=== PATIENT | female | born 1990 | race Caucasian/White ===

== ENCOUNTER 2017-10-14 22:38 | Emergency (ER) | payer OTHER, BC, SELFPAY ==
[2017-10-14 22:51] VITALS: BP 129/87; PULSE 87; RESP 18; TEMP 37.1; O2SAT 99; BMI 32.0
--- NOTE | 2017-10-14 23:10 | HMH.EDWNDL ---
ED Disposition Clinical Impression: Employee exposure to blood Disposition: Home, Self-Care Condition on Discharge: Good Instructions: DI for Accidental Exposure to Body Fluids Additional Instructions: call employee health in am - Critical Care Critical Care Time: No Attestation: On 10/14/17, the high probability of a clinically significant, sudden or life threatening deterioration of the following system(s) required my full and direct attention, intervention and personal management. The time I documented below is in addition to time spent performing reported procedures but includes the following listed in this critical care notation. Medical Decision Making - Medical Records Medical records reviewed: Yes: I reviewed the patient's medical records. Vital Signs: 10/14/17 22:51 Temperature 98.7 F Temperature Source Oral Pulse Rate [Right Radial] 87 Respiratory Rate 18 Blood Pressure [Right Arm] 129/87 Blood Pressure Mean [Right Arm] 101 Blood Pressure Source [Right Arm] Automatic Cuff Blood Pressure Position [Right Arm] Sitting 02 Sat by Pulse Oximetry 99 Oxygen Delivery Method Room Air - Lab Data Lab results reviewed: Yes: I reviewed the patient's lab results. - Smooth Inquiry Pt receiving controlled substance: No Wound/Laceration HPI - General Chief Complaint: Wound/Laceration Stated Complaint: WC [id number] @2200 exposure to blood Time Seen by Provider: 10/14/17 23:10 Mode of Arrival: Ambulatory Source of Information: Patient, Medical Record Limitations: No Limitations Description of Symptoms (Recalled from ER Triage Doc. 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 to blood on clothes - no known source and no needle stick Onset (ago): hour(s) Extremity Location: Bilateral: hand Place: work Patient tetanus UTD: Yes Context: accidental Associated symptoms: none - Related Data Home Medications Medication Instructions Recorded Confirmed No Known Home Medications [No 10/14/17 10/14/17 Known Home Medications] Allergies Allergy/AdvReac Type Severity Reaction Status Date / Time INGREDIENT: NO KNOWN - NO Allergy Unknown Uncoded 08/31/17 14:50 KNOWN DRUG ALLERGY [facility] History I have reviewed the patient's past medical history: Yes - *Social History Alcohol Intake: never - Psychiatric History Expresses thoughts of harming self/others: None Suicide Plan Description: No Plan ROS Obtained: Yes All systems reviewed & no additional complaints - Constitutional Constitutional: Denies fever(s) - Eyes Eyes: Denies change in vision - ENT Ears, Nose, Mouth, and Throat: Denies sore throat - Cardiovascular Cardiovascular: Denies chest pain at rest - Respiratory Respiratory: No chest congestion - Gastrointestinal Gastrointestingal: Denies: abdominal pain - Musculoskeletal Musculoskeletal: Denies joint pain, Denies joint stiffness - Integumentary/Breasts Skin/Breast: Reports as per HPI, Denies rash, Reports other (no sig open area on skin) - Neurologic Neurologic: Denies seizure-like activity Physical Exam - General General appearance: in no apparent distress - Head Head exam: normocephalic - Eye Eye exam: Present: PERRL, EOMI - ENT ENT exam: Present: mucous membranes moist - Neck Neck exam: Present: trachea midline - Chest Chest inspection: Present: normal inspection - Respiratory Respiratory exam: Absent: respiratory distress - Cardiovascular Cardiovascular exam: Present: regular rate - Extremities Exam Extremities exam: Present: normal inspection - Neurological Exam Neurological exam: Present: alert, oriented X3, CN II-XII intact - Psychiatric Psychiatric exam: Present: normal affect - Skin Skin exam: Present: intact
--- NOTE | 2017-10-14 23:13 | ED_ITS ---
ED Disposition Clinical Impression: Employee exposure to blood Disposition: Home, Self-Care Condition on Discharge: Good Instructions: DI for Accidental Exposure to Body Fluids Additional Instructions: call employee health in am - Critical Care Critical Care Time: No Attestation: On 10/14/17, the high probability of a clinically significant, sudden or life threatening deterioration of the following system(s) required my full and direct attention, intervention and personal management. The time I documented below is in addition to time spent performing reported procedures but includes the following listed in this critical care notation. Medical Decision Making - Medical Records Medical records reviewed: Yes: I reviewed the patient's medical records. Vital Signs: 10/14/17 22:51 Temperature 98.7 F Temperature Source Oral Pulse Rate [Right Radial] 87 Respiratory Rate 18 Blood Pressure [Right Arm] 129/87 Blood Pressure Mean [Right Arm] 101 Blood Pressure Source [Right Arm] Automatic Cuff Blood Pressure Position [Right Arm] Sitting 02 Sat by Pulse Oximetry 99 Oxygen Delivery Method Room Air - Lab Data Lab results reviewed: Yes: I reviewed the patient's lab results. - Smooth Inquiry Pt receiving controlled substance: No Wound/Laceration HPI - General Chief Complaint: Wound/Laceration Stated Complaint: WC [id number] @2200 exposure to blood Time Seen by Provider: 10/14/17 23:10 Mode of Arrival: Ambulatory Source of Information: Patient, Medical Record Limitations: No Limitations Description of Symptoms (Recalled from ER Triage Doc. 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 exposed to blood on clothes - no known source and no needle stick Onset (ago): hour(s) Extremity Location: Bilateral: hand Place: work Patient tetanus UTD: Yes Context: accidental Associated symptoms: none - Related Data Home Medications Medication Instructions Recorded Confirmed No Known Home Medications [No 10/14/17 10/14/17 Known Home Medications] Allergies Allergy/AdvReac Type Severity Reaction Status Date / Time INGREDIENT: NO KNOWN - NO Allergy Unknown Uncoded 08/31/17 14:50 KNOWN DRUG ALLERGY [facility] History I have reviewed the patient's past medical history: Yes - *Social History Alcohol Intake: never - Psychiatric History Expresses thoughts of harming self/others: None Suicide Plan Description: No Plan ROS Obtained: Yes All systems reviewed & no additional complaints - Constitutional Constitutional: Denies fever(s) - Eyes Eyes: Denies change in vision - ENT Ears, Nose, Mouth, and Throat: Denies sore throat - Cardiovascular Cardiovascular: Denies chest pain at rest - Respiratory Respiratory: No chest congestion - Gastrointestinal Gastrointestingal: Denies: abdominal pain - Musculoskeletal Musculoskeletal: Denies joint pain, Denies joint stiffness - Integumentary/Breasts Skin/Breast: Reports as per HPI, Denies rash, Reports other (no sig open area on skin) - Neurologic Neurologic: Denies seizure-like activity Physical Exam - General General appearance: in no apparent distress - Head Head exam: normocephalic
[2017-10-14 23:35] LABS: Basophils % 0.4 % (0.1-2.0); Eosinophils # 0.2 K/mm3 (0.0-0.4); Eosinophils % 1.6 % (0.1-12.0); Hematocrit 40.9 % (37.0-47.0); Hemoglobin 13.4 g/dL (12.2-16.2); Lymphocytes % 27.1 K/mm3 (10-50); Mean Corpuscular HGB Conc 32.9 g/dL (31.8-35.4); Mean Corpuscular Hemoglobin 27.7 pg (27.0-31.2); Mean Corpuscular Volume 84.1 fl (81-99); Monocytes # 0.5 K/mm3 (0.1-1.0); Monocytes % 4.2 % (1.7-9.3); Neutrophils # 7.4 K/mm3 (1.8-7.8); Neutrophils % 66.8 % (37.0-80.0); Platelet Count 397 K/mm3 (142-424); Red Blood Count 4.86 M/mm3 (4.20-5.40); Red Cell Distribution Width 13.1 % (11.5-17.5); White Blood Count 11.1 K/mm3 (4.8-10.8)
[2017-10-14 23:39] LABS: Activated Partial Thrombo Time 28.2 seconds (23.6-34.0); INR 0.97 (0.9-1.1); Prothrombin Time 10.5 seconds (9.4-11.8)
[2017-10-14 23:42] LABS: Alanine Aminotransferase 31 U/L (12-78); Albumin Level 4.2 gm/dL (3.4-5.0); Alkaline Phosphatase 147 U/L (46-116); Aspartate Amino Transferase 19 U/L (15-37); Bilirubin,Direct 0.1 mg/dL (0.0-0.2); Bilirubin,Total 0.3 mg/dL (0.2-1.0); Total Protein,Serum 8.2 gm/dL (6.4-8.2)
[2017-10-15 01:00] LABS: HIV AB(1/2) Exposures Non-Reactive (Non-Reactiv)
[2017-10-16 19:23] LABS: HIV Screen 4th Generation wRfx Non Reactive (Non Reactive); Hep B Surface Ab, Qual Reactive (.); Hepatitis B Surface Antigen Negative (Negative); Hepatitis C Antibody <0.1 s/co ratio (0.0-0.9)
== END 2017-10-14 23:30 | disposition home or self-care (01) ==
PROVIDERS: Emergency Provider Emergency Medicine; Family Provider Obstetrics & Gynecology
DX: Z57.8 Occupational exposure to other risk factors (principal); X58.XXXA Exposure to other specified factors, initial encounter; Y92.69 Other specified industrial and construction area as the place of occurrence of the external cause
CPT/HCPCS: 80076; 85025; 85610; 85730; 86703; 86706; 87340; 87380; 99281; G0432

== ENCOUNTER 2017-11-18 16:22 | Emergency (ER) | payer OTHER, BC, SELFPAY ==
[2017-11-18 16:23] VITALS: BP 117/70; PULSE 66; RESP 18; TEMP 36.8; O2SAT 97; BMI 37.3
--- NOTE | 2017-11-18 16:33 | XR_ITS ---
XR chest 2V HISTORY: ITS.REASON: chest pain ORDERING PHYSICIAN: Mabel Dubon MD PATIENT AGE: 27 years COMPARISON: 03/26/2019 FINDINGS: The cardiomediastinal silhouette and pulmonary vascularity are within normal limits. The lungs are clear without infiltrates, suspicious nodules, or pleural effusions. Small area of increased density is present over the anterior aspect of the left sixth rib probably due to summation artifact and may be confirmed with follow-up. No acute bony abnormalities. IMPRESSION: No acute finding
[2017-11-18 16:46] LABS: Hematocrit 41.1 % (37.0-47.0); Hemoglobin 13.4 g/dL (12.2-16.2); Lymphocytes % 27.3 K/mm3 (10-50); Mean Corpuscular HGB Conc 32.7 g/dL (31.8-35.4); Mean Corpuscular Hemoglobin 27.8 pg (27.0-31.2); Mean Platelet Volume 7.1 fl (7.4-10.4); Neutrophils % 65.3 % (37.0-80.0); Platelet Count 322 K/mm3 (142-424); Red Blood Count 4.83 M/mm3 (4.20-5.40); Red Cell Distribution Width 13.2 % (11.5-17.5); White Blood Count 8.5 K/mm3 (4.8-10.8)
[2017-11-18 16:47] LABS: Basophils % 0.5 % (0.1-2.0); Eosinophils # 0.2 K/mm3 (0.0-0.4); Eosinophils % 1.8 % (0.1-12.0); Lymphocytes # 2.3 K/mm3 (0.7-4.5); Monocytes # 0.4 K/mm3 (0.1-1.0); Monocytes % 5.1 % (1.7-9.3); Neutrophils # 5.5 K/mm3 (1.8-7.8)
[2017-11-18 17:10] LABS: Alanine Aminotransferase 29 U/L (12-78); Albumin Level 3.7 gm/dL (3.4-5.0); Alkaline Phosphatase 132 U/L (46-116); Anion Gap 11.6 mEq/L (5-15); Aspartate Amino Transferase 19 U/L (15-37); Bilirubin,Total 0.2 mg/dL (0.2-1.0); Blood Urea Nitrogen 15 mg/dL (7-18); CKMB Relative Index 1.6 U/L (0-4.0); Calcium 8.2 mg/dL (8.5-10.1); Carbon Dioxide 26 mmol/L (21.0-32.0); Chloride 103 mmol/L (98-107); Creatine Kinase 162 U/L (26-192); Creatine Kinase MB 2.6 mg/ml (0.0-3.6); Creatinine Clearance Estimated 119 mL/min (0-300); Creatinine,Serum 0.94 mg/dL (0.55-1.02); Estimated Glomerular Filt Rate 71 ml/min (>60); GFR (African American) 86 ML/MIN (>60); Globulin 3.8 gm/dl (1.3-3.2); Glucose 117 mg/dL (74-106); Potassium 3.6 mmoL/L (3.5-5.1); Sodium 137 mmol/L (136-145); Total Protein,Serum 7.5 gm/dL (6.4-8.2); Troponin I < 0.02 ng/ml (0.00-0.06)
[2017-11-18 17:26] LABS: Urine Pregnancy, HCG Qual. Negative (Negative)
--- NOTE | 2017-11-18 17:29 | HMH.EDCP ---
ED Disposition Clinical Impression: Chest pain, musculoskeletal Disposition: Home, Self-Care Condition on Discharge: Good Instructions: DI for Atypical Chest Pain Additional Instructions: Naproxen as directed, see your PCP in one to four days for recheck - Critical Care Critical Care Time: No Attestation: On 11/18/17, the high probability of a clinically significant, sudden or life threatening deterioration of the following system(s) required my full and direct attention, intervention and personal management. The time I documented below is in addition to time spent performing reported procedures but includes the following listed in this critical care notation. Medical Decision Making Vital Signs: 11/18/17 16:23 Temperature 98.2 F Temperature Source Oral Pulse Rate [Right Radial] 66 Respiratory Rate 18 Blood Pressure [Right Arm] 117/70 Blood Pressure Mean [Right Arm] 85 02 Sat by Pulse Oximetry 97 Oxygen Delivery Method Room Air - Lab Data Lab results reviewed: Yes: I reviewed the patient's lab results. Lab Results 11/18/17 16:30: WBC 8.5, RBC 4.83, Hgb 13.4, Hct 41.1, MCV 85.0, MCH 27.8, MCHC 32.7, RDW 13.2, Plt Count 322, MPV 7.1 L, Neut % (Auto) 65.3, Lymph % (Auto) 27.3, [place] % (Auto) 5.1, Eos % (Auto) 1.8, Baso % (Auto) 0.5, Neut # (Auto) 5.5, Lymph # (Auto) 2.3, [place] # (Auto) 0.4, Eos # (Auto) 0.2, Baso # (Auto) 0.0 11/18/17 16:30: Sodium 137, Potassium 3.6, Chloride 103, Carbon Dioxide 26, Anion Gap 11.6, BUN 15, Creatinine 0.94, Estimated Creat Clear 119, Estimated GFR 71, Est GFR ( Amer) 86, Glucose 117 H, Calcium 8.2 L, Total Bilirubin 0.2, AST 19, ALT 29, Alkaline Phosphatase 132 H, Total Creatine Kinase 162, CK-MB (CK-2) 2.6, CK-MB (CK-2) Rel Index 1.6, Troponin I < 0.02, Total Protein 7.5, Albumin 3.7, Globulin 3.8 H, Albumin/Globulin Ratio 1.0 L 11/18/17 16:35: Urine HCG, Qual Negative Result diagrams: 11/18/17 16:30 11/18/17 16:30 Orders (Tests/Meds): ORDERS Category Date Time Status XR chest 2V Stat Exams 11/18/17 16:33 Taken EKG Request [ECG Request by /Maria Antonia] Stat Y 11/18/17 16:33 Ordered - Radiology Data #1 Image(s): Chest Image Reviewed: Yes I reviewed the patient's radiology image Preliminary Findings: Normal/NAD, No Infiltrates Seen, Normal Lung Inflation Pito (neg acute), Normal Heart Size - ECG Data Tracing #1 I reviewed this ECG and interpreted as documented below: ECG initial impression date: 11/18/17 ECG initial impression time: 16:30 ECG normal with no acute: arrhythmias, ischemia, conduction abnormalities, chamber hypertrophy Normal Sinus Rhythm: Yes - Smooth Inquiry Pt receiving controlled substance: No Chest Pain HPI - General Chief Complaint: Chest Pain Stated Complaint: chest pain Time Seen by Provider: 11/18/17 16:30 Mode of Arrival: Family Vehicle Source of Information: Patient Limitations: No Limitations Description of Symptoms (Recalled from ER Triage Doc. by RN): pt c/o midsternal chest pain that is worse with movement. pain started around 1430. 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 No acute trauma. No SOB. No F or Ch. No cough; no PE RF's. Onset (ago): hour(s) Duration: now resolved Pain location: substernal Severity: mild Quality: aching Relieving factors: remaining still Exacerbating factors: movement Treatments prior to or on arrival for Cardiac Chest Pain: none - Related Data Home Medications Medication Instructions Recorded Confirmed Cholecalciferol (Vitamin D3) 50,000 unit PO WEEKLY 11/18/17 11/18/17 [Vitamin D3 50,000 unit Cap] Allergies Allergy/AdvReac Type Severity Reaction Status Date / Time No Known Allergies Allergy Verified 11/18/17 16:29 [facility] History I have reviewed the patient's past medical history: Yes Medical History: Denies:: Cancer, Diabetes Mellitus Type 1, Diabetes Mellitus Type 2, MRSA [place]
[2017-11-18 18:10] VITALS: BP 129/63; PULSE 72; RESP 20; TEMP 36.9; O2SAT 98
== END 2017-11-18 18:10 | disposition home or self-care (01) ==
PROVIDERS: Emergency Provider Emergency Medicine; Family Provider Obstetrics & Gynecology
DX: R07.89 Other chest pain (principal)
CPT/HCPCS: 71046; 80053; 81025; 82550; 82553; 84484; 85025; 93005; 93041; 99283

== ENCOUNTER → 2017-11-27 10:38 | Outpatient (CLI) | payer OTHER, SELFPAY ==
[2017-11-28 11:08] LABS: Hep A Ab, IgM Negative (Negative); Hepatitis B Core Antibody IgM Negative (Negative); Hepatitis B Surface Antigen Negative (Negative)
[2017-11-28 18:51] LABS: HIV Screen 4th Generation wRfx Non Reactive (Non Reactive); Hepatitis C Antibody <0.1 s/co ratio (0.0-0.9)
== END ==
PROVIDERS: Visit Provider Emergency Medicine
DX: Z57.8 Occupational exposure to other risk factors (principal)
CPT/HCPCS: 36415; 80074; 86703; G0432

== ENCOUNTER → 2018-07-11 14:30 | Outpatient (CLI) | payer BC, SELFPAY ==
--- NOTE | 2018-07-11 14:36 | MR_ITS ---
MR knee RT wo con Ordering Physician: Africa Gill Patient Age: 27 years: Female HISTORY: ITS.REASON: INSTABILITY OF RIGHT KNEE JOINT Right knee pain. 2 months fell landed on right knee pain is medial and posterior. TECHNIQUE: Multiplanar multisequence imaging 1.5 to MR COMPARISON :None FINDINGS . The medial and lateral compartment are intact. Cartilage well-maintained medial and lateral compartment. No osteochondral defects of appreciated. The medial and lateral meniscus appear intact. No meniscal tear with well-maintained, generous volume meniscus . Normal signal throughout. The medial and lateral collateral ligaments appear intact. Cruciate ligaments intact. ACL and PCL well visualized and appear normal. Quadriceps and patellar tendon appear intact. Patellofemoral joint. Slight lateral tilt of patella... Slight hypoplastic medial margin of femoral groove. Only suggestion of a tiny chondral signal irregularities at posterior patella superiorly at its midportion, as well as at its medial margin superior.. Joint effusion most evident at suprapatellar bursa. The medial retinaculum appears intact. No bone contusion. No bone bruise. No obvious loose body. Only question some mild edema or possible infiltration of the posterior aspect of Hoffa's fat pad on sagittal image 12, 13. Equivocal observation Minimal soft tissue edema, possible scant swelling in the subcutaneous tissues overlying the medial retinaculum. I believe the medial retinaculum remains intact otherwise Attention directed towards the medial posterior knee. No discrete additional findings appreciable here.. No significant evident Patel's cyst. It Only question slightly increased, generous redundant mainly fatty tissue just above the superior base of the medial meniscal root which I believe is most likely normal.. IMPRESSION: 1.. Moderate Joint effusion. No discrete internal drainage evident. 2. Mild superficial soft tissue edema, most notable overlying the intact medial retinaculum . No focal abnormalities at the medial nor medial posterior knee. 3. Cruciates intact. Collateral ligaments intact No meniscal tear evident.. No osteochondral abnormalities at the medial nor lateral compartment 4. Mild lateral tilt of patella. Is there lateral tracking patella clinically? Suggestion very minimal chondral signal irregularities posterior patella superiorly, conceivably reflects minor chondromalacia change
== END ==
PROVIDERS: PCP Nurse Practitioner Family; Visit Provider Nurse Practitioner Family
DX: M25.361 Other instability, right knee (principal); M25.561 Pain in right knee
CPT/HCPCS: 73721

== ENCOUNTER 2019-09-08 08:26 | Emergency (ER) | payer BC, SELFPAY ==
[2019-09-08 08:40] VITALS: BP 134/85; PULSE 120; RESP 22; TEMP 36.8; O2SAT 97; BMI 33.7
--- NOTE | 2019-09-08 08:48 | CT_ITS ---
PROCEDURE: CT ABDOMEN PELVIS W CON CLINICAL HISTORY: ABD PAIN COMPARISON: No exams were available for comparison TECHNIQUE: Axial images obtained with sagittal and coronal reformats. All CT scans at the facility use one or more dose reduction, viz: automated exposure control, ma/kV adjustment per patient size (including targeted exams where dose is matched to indication, i.e. head), or iterative reconstruction technique. FINDINGS: Lower lung hunt are clear. Liver, gallbladder, pancreas, spleen, and adrenal glands are normal. Kidneys are normal. Aorta appears normal however there is a small atretic appearing celiac artery. Most of the celiac artery blood supply territory is likely supplied by the SMA which is more prominent. There is some nonspecific thickening of the wall of the mid and distal ileum. There is no pneumatosis or colonic dilatation or colonic wall thickening. Appendix is normal. There are clips in the pelvis from tubal ligation procedure. Uterus is normal. There are no adnexal lesions. There is a small amount of cul-de-sac fluid. No acute osseous process IMPRESSION: Mildly abnormal loops of mid and distal ileum likely from mild enteritis. 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 Dictated by: Allan Ramachandran 09/08/2019 09:55 Electronically signed by Allan Ramachandran in [place] 09/08/2019 09:55
[2019-09-08 08:53] LABS: Microscopic, Urine URINE MICROSCOPIC (MICROSCOPIC)
[2019-09-08 08:55] LABS: Appearance,Urine CLEAR (Clear); Bilirubin,Urine Negative (Negative); Blood, Urine 1+ (Negative); Color,Urine YELLOW (Yellow); Glucose,Urine (UA) Negative (Negative); Ketones,Urine Negative (Negative); Leukocyte Esterase,Urine Negative (Negative); Nitrate,Urine Negative (Negative); Protein,Urine Negative (Negative); Specific Gravity, Urine 1.025 (1.005-1.030); Urobilinogen,Urine 0.2 EU/dl (0.2)
[2019-09-08 09:07] LABS: Urine Pregnancy, HCG Qual. Negative (Negative)
[2019-09-08 09:08] LABS: Basophils % 0.1 % (0.1-2.0); Eosinophils # 0.1 K/mm3 (0.0-0.4); Lymphocytes # 1.2 K/mm3 (0.7-4.5); Lymphocytes % 9.2 % (10-50); Mean Corpuscular HGB Conc 34.2 g/dL (31.8-35.4); Mean Corpuscular Hemoglobin 29.2 pg (27.0-31.2); Mean Corpuscular Volume 85.5 fl (81-99); Mean Platelet Volume 7.6 fl (7.4-10.4); Monocytes # 0.8 K/mm3 (0.1-1.0); Monocytes % 6.1 % (1.7-9.3); Neutrophils # 10.6 K/mm3 (1.8-7.8); Neutrophils % 83.5 % (37.0-80.0); Platelet Count 359 K/mm3 (142-424); Red Blood Count 4.79 M/mm3 (4.20-5.40); Red Cell Distribution Width 12.9 % (11.5-17.5); White Blood Count 12.7 K/mm3 (4.8-10.8)
[2019-09-08 09:11] LABS: Bacteria,Urine Trace /lpf; WBC,Urine Occasional #/hpf (0-3)
--- NOTE | 2019-09-08 09:13 | HMH.EDABDPAI ---
ED Disposition Clinical Impression: Enteritis Disposition: Home, Self-Care Condition on Discharge: Good Instructions: DI for Acute Abdomen Additional Instructions: Follow-up with your primary care provider on Wednesday. Return to the emergency department immediately if symptoms are worse. Prescriptions: Ciprofloxacin HCl [Cipro 500mg Tab] 500 mg PO BID 7 Days #14 tab Transmission Status: Pending to [address] metroNIDAZOLE [Flagyl 500mg Tablet] 500 mg PO TID 7 Days #21 tab Transmission Status: Pending to [address] Ondansetron [Zofran 4mg ODT] 4 mg PO Q4H PRN #10 tab.rapdis PRN Reason: Nausea Transmission Status: Pending to [address] Referrals: Africa Gill [Primary Care Provider] - Time of Disposition: 10:51 - Critical Care Critical Care Time: No Attestation: On 09/08/19, the high probability of a clinically significant, sudden or life threatening deterioration of the following system(s) required my full and direct attention, intervention and personal management. The time I documented below is in addition to time spent performing reported procedures but includes the following listed in this critical care notation. Medical Decision Making - Medical Records Medical records reviewed: Yes: I reviewed the patient's medical records. - Smooth Inquiry Pt receiving controlled substance: No Vital Signs: 09/08/19 08:40 Temperature 98.2 F Temperature Source Oral Pulse Rate [Right Radial] 120 H Respiratory Rate 22 Blood Pressure [Right Arm] 134/85 Blood Pressure Mean [Right Arm] 101 Blood Pressure Source [Right Arm] Automatic Cuff Blood Pressure Position [Right Arm] Sitting 02 Sat by Pulse Oximetry 97 Oxygen Delivery Method Room Air - Lab Data Lab results reviewed: Yes: I reviewed the patient's lab results. Lab Results 09/08/19 08:37: Urine Color Yellow, Urine Appearance Clear, Urine pH 6.0, Ur Specific [place] 1.025, Urine Protein Negative, Urine Glucose (UA) Negative, Urine Ketones Negative, Urine Blood 1+, Urine Nitrate Negative, Urine Bilirubin Negative, Urine Urobilinogen 0.2, Ur Leukocyte Esterase Negative, Urine RBC 3-5, Urine WBC Occasional, Ur Squamous Epith Cells 5-10, Urine Bacteria Trace 09/08/19 08:37: Urine HCG, Qual Negative 09/08/19 09:00: WBC 12.7 H, RBC 4.79, Hgb 14.0, Hct 41.0, MCV 85.5, MCH 29.2, MCHC 34.2, RDW 12.9, Plt Count 359, MPV 7.6, Neut % (Auto) 83.5 H, Lymph % (Auto) 9.2 L, [place] % (Auto) 6.1, Eos % (Auto) 1.0, Baso % (Auto) 0.1, Neut # (Auto) 10.6 H, Lymph # (Auto) 1.2, [place] # (Auto) 0.8, Eos # (Auto) 0.1, Baso # (Auto) 0.0 09/08/19 09:00: Sodium 141, Potassium 3.6, Chloride 104, Carbon Dioxide 26, Anion Gap 14.6, BUN 15, Creatinine 0.95, Estimated Creat Clear 104, Estimated GFR 70, Est GFR ( Amer) 84, Glucose 102, Calcium 8.1 L, Total Bilirubin 0.5, AST 11 L, ALT 17, Alkaline Phosphatase 94, Total Protein 7.3, Albumin 3.7, Globulin 3.6 H, Albumin/Globulin Ratio 1.0 L, Amylase 47, Lipase 67 L Result diagrams: 09/08/19 09:00 09/08/19 09:00 Orders (Tests/Meds): ED MEDICATIONS Discontinued Medications Generic Name Dose Route Start Last Admin Trade Name Freq PRN Reason Stop Dose Admin Sodium Chloride 1,000 mls @ 999 mls/hr 09/08/19 09:00 09/08/19 09:09 Sod Chlor 0.9% 1000ml Bag IV 09/08/19 10:00 999 mls/hr .Q1H1M GEOVANNI Administration Ioversol 75 ml 09/08/19 09:39 09/08/19 09:40 Rad-Optiray 350 100ml Vial IV 09/08/19 09:40 75 ml ONCE ONE Administration Protocol Ketorolac Tromethamine 30 mg 09/08/19 08:59 09/08/19 09:09 Toradol 30mg/Ml Vial IV 09/08/19 09:00 30 mg ONCE ONE Administration Ondansetron HCl 4 mg 09/08/19 08:59 09/08/19 09:09 Zofran 4mg/2ml Vial IV 09/08/19 09:00 4 mg ONCE ONE Administration Sodium Chloride 10 ml 09/08/19 09:39 09/08/19 09:40 Rad-Saline Flush 10ml Syringe IV 09/08/19 09:40 10 ml ONCE ONE Administration - CT Data CT Sc
[2019-09-08 09:24] LABS: Alanine Aminotransferase 17 U/L (12-78); Albumin Level 3.7 gm/dL (3.4-5.0); Alkaline Phosphatase 94 U/L (46-116); Amylase 47 U/L (25-115); Anion Gap 14.6 mEq/L (5-15); Aspartate Amino Transferase 11 U/L (15-37); Bilirubin,Total 0.5 mg/dL (0.2-1.0); Blood Urea Nitrogen 15 mg/dL (7-18); Calcium 8.1 mg/dL (8.5-10.1); Carbon Dioxide 26 mmol/L (21.0-32.0); Chloride 104 mmol/L (98-107); Creatinine Clearance Estimated 104 mL/min (50-200); Creatinine,Serum 0.95 mg/dL (0.55-1.02); Estimated Glomerular Filt Rate 70 ml/min (>60); GFR (African American) 84 ML/MIN (>60); Globulin 3.6 gm/dl (1.3-3.2); Glucose 102 mg/dL (74-106); Lipase 67 u/L (73-393); Potassium 3.6 mmoL/L (3.5-5.1); Sodium 141 mmol/L (136-145); Total Protein,Serum 7.3 gm/dL (6.4-8.2)
[2019-09-08 10:52] VITALS: BP 132/87; PULSE 99; RESP 18; TEMP 37.1; O2SAT 98
== END 2019-09-08 11:01 | disposition home or self-care (01) ==
PROVIDERS: Emergency Provider Emergency Medicine; PCP Nurse Practitioner Family
DX: K52.9 Noninfective gastroenteritis and colitis, unspecified (principal)
CPT/HCPCS: 74177; 80053; 81001; 81025; 82150; 83690; 85025; 96365; 96375; 99283; J2405; Q9967

== ENCOUNTER → 2019-09-28 08:43 | Outpatient (CLI) | payer BC, SELFPAY ==
--- NOTE | 2019-09-28 08:46 | FL_ITS ---
PROCEDURE: FL UPPER GI SMALL BOWEL CLINICAL INDICATION: ABD PAIN COMPARISON: No exams were available for comparison TECHNIQUE: FLUOROSCOPY TIME : 3 minutes and 1 second FINDINGS: The esophagus, stomach, and duodenum have an unremarkable appearance.There is no evidence of hiatal hernia. No ulcer or mass evident. No mucosal abnormalities apparent. There is normal peristalsis. The duodenal C-loop is nondisplaced. Small bowel has an unremarkable appearance. No evidence obstruction, mucosal abnormality, mass or stricture. Spot views of the small bowel and terminal ileum are unremarkable. There are bilateral tubal ligation clips present IMPRESSION: Unremarkable upper GI and small-bowel follow-through Dictated by: Jose L Dias MD 09/28/2019 17:06 Electronically signed by Jose L Dias MD in [place] 09/28/2019 17:06
[2019-09-28 09:39] LABS: HCG Qualitative, Serum Negative (Negative)
== END ==
PROVIDERS: PCP Nurse Practitioner Family; Visit Provider Nurse Practitioner
DX: R10.9 Unspecified abdominal pain (principal)
CPT/HCPCS: 36415; 74246; 74248; 84703

== ENCOUNTER 2020-03-14 19:06 | Emergency (ER) | payer BC, SELFPAY ==
[2020-03-14 19:16] VITALS: BP 126/78; PULSE 89; RESP 15; TEMP 36.8; O2SAT 97; BMI 35.9
[2020-03-14 19:20] VITALS: BP 126/78; PULSE 89; RESP 15; TEMP 36.8; O2SAT 97; BMI 35.9
--- NOTE | 2020-03-14 19:30 | HMH.EDUTC ---
[facility] Disposition Clinical Impression: Skin problem Disposition: Home, Self-Care Condition on Discharge: Good Instructions: Trimethoprim/Sulfamethoxazole (Alternative Therapy), DI for Skin Abscess Additional Instructions: *Start antibiotic(s) immediately and be sure to take as ordered for the FULL length of time although you may be feeling better or start to see improvement in the next 24-48 hours *Monitor closely. Outlined redness so that you can monitor easier. Follow up immediately for new or worsening symptoms including but not limited to redness, swelling, streaking from site fever or chills. *Warm compress 15 minutes 3-4 times day *Never squeeze or pop these on your own. Seek immediate medical attention next time this occurs *Monitor Temp. Tylenol every 4 hours as needed and ibuprofen every 6 hours as needed (as long as your primary care doctor has told you that it is ok to take both. For fever, aches, pain. ER if no less that 101 despite Tylenol and ibuprofen Follow up with your family doctor/primary care physician in the next 48-72 hours if no improvement Follow up with Dermatology as advised for further evaluation and examination Return if needed Follow up with family doctor for wound culture results Straight to ER if any life threatening symptoms Prescriptions: Sulfamethoxazole/Trimethoprim [Bactrim DS tablet] 1 each PO BID 5 Days #10 tab Transmission Status: Pending to [facility] #[id number] Referrals: Africa Gill [Primary Care Provider] - As needed Timothy Jiménez MD [Referring] - As needed Time of Disposition: 19:43 Medical Decision Making - Smooth Inquiry Pt receiving controlled substance: No Smooth was queried for this patient: No Vital Signs: 03/14/20 19:16 03/14/20 19:20 Temperature 98.3 F 98.3 F Temperature Source Oral Oral Pulse Rate [Left Brachial] 89 89 Respiratory Rate 15 15 Blood Pressure [Left Arm] 126/78 126/78 Blood Pressure Mean [Left Arm] 94 94 Blood Pressure Source [Left Arm] Automatic Cuff Automatic Cuff Blood Pressure Position [Left Arm] Sitting Sitting 02 Sat by Pulse Oximetry 97 97 Oxygen Delivery Method Room Air Room Air Orders (Tests/Meds): ORDERS Category Date Time Status Wound Culture and Gram Stain Stat Micro 03/14/20 19:25 Ordered [facility] HPI - General Stated complaint: oozing knot on head Time Seen by Provider: 03/14/20 19:31 Mode of Arrival: Ambulatory Source of Information: Patient Limitations: No Limitations Description of Symptoms (Recalled from Triage Doc. by RN): Patient reports a knot on the top of her head that has been there over a year. The last two days it started bleeding so she went and seen Dr. oDnaldson in [facility] and they told her it may be a cyst. On the way home it started draining more so she came to have it evaluated again. HEENT Symptoms (Recalled from RN notes): Yes Resp Symptoms (Recalled from RN notes): No Skin Symptoms (Recalled from RN notes): Yes MS Symptoms (Recalled from RN notes): No Functional Status (Recalled from RN notes): WNL - History of Present Illness Provider Complaint: Patient states that she had a knot like area that has been on her head for awhile but for the last couple of days has been red, sore and oozing yellowish colored pus States that she seen doctor earlier today and they looked at it and said they was going to refer her to ENT but she went home and squeezed it and large amount of yellowish bloody pus come from it and now looks like there is more in there and its hurting worse States that someone told her it may be infected so she came in to have it checked - Related Data Home Medications Medication Instructions Recorded Confirmed Cholecalciferol (Vitamin D3) 50,000 unit PO WEEKLY 11/18/17 11/18/17 [Vitamin D3 50,000 unit Cap] Previous Rx's Medication Instructions Recorded ondansetron HCL [Zofran 4mg Tab*] 4 mg PO Q8 PRN #6 tab 07/23/19 Ciprofloxacin HCl [Cipro 500mg 500 mg PO BID 7 Days #14 tab
[2020-03-14 19:50] VITALS: BP 126/78; PULSE 89; RESP 15; TEMP 36.8; O2SAT 97
== END 2020-03-14 19:55 | disposition home or self-care (01) ==
PROVIDERS: Emergency Provider Nurse Practitioner; PCP Nurse Practitioner Family
DX: L02.811 Cutaneous abscess of head [any part, except face] (principal)
CPT/HCPCS: 87070; 87077; 87186; 87205; 99201

== ENCOUNTER 2020-06-23 21:25 | Emergency (ER) | payer BC, SELFPAY ==
--- NOTE | 2020-06-23 21:21 | ECG_ITS ---
APPROVED REPORT Exam: Resting ECG HR:118 bpm ECG Measurements Heart Rate 118 AXES DE 120 P 75 QRSd 78 QRS 46 QT 320 T -5 QTc 448 Conclusion Sinus tachycardia Nonspecific ST-T wave abnormalities Abnormal ECG Electronically signed by : Merrick Bui, 06/24/2020 09:23:48
[2020-06-23 21:26] VITALS: BP 121/79; PULSE 94; RESP 20; TEMP 36.9; O2SAT 95; BMI 36.3
[2020-06-23 21:27] VITALS: BMI 36.3
--- NOTE | 2020-06-23 21:45 | XR_ITS ---
PROCEDURE: XR CHEST 2V CLINICAL HISTORY: chest pain COMPARISON: CR CXR2V XR chest 2V from 11/18/2017 FINDINGS: The cardiomediastinal silhouette and pulmonary vascularity are within normal limits. The lungs are clear without infiltrates, suspicious nodules, or pleural effusions. No acute bony abnormalities. IMPRESSION: No acute findings. Dictated by: Jose L Dias MD 06/24/2020 05:30 Jose L Dias MD in [place] 06/24/2020 05:30
--- NOTE | 2020-06-23 21:50 | PC.NURSE ---
Pt reports no relief after nitro SL.
[2020-06-23 21:53] LABS: Basophils # 0.1 K/mm3 (0-0.2); Basophils % 0.6 % (0.1-2.0); Eosinophils # 0.1 K/mm3 (0.0-0.4); Eosinophils % 0.9 % (0.1-12.0); Hematocrit 44.4 % (37.0-47.0); Hemoglobin 14.6 g/dL (12.2-16.2); Lymphocytes # 2.8 K/mm3 (0.7-4.5); Lymphocytes % 26.7 % (10-50); Mean Corpuscular HGB Conc 32.9 g/dL (31.8-35.4); Mean Corpuscular Hemoglobin 28.8 pg (27.0-31.2); Mean Corpuscular Volume 87.5 fl (81-99); Mean Platelet Volume 6.9 fl (7.4-10.4); Monocytes # 0.5 K/mm3 (0.1-1.0); Monocytes % 4.7 % (1.7-9.3); Neutrophils # 7.1 K/mm3 (1.8-7.8); Neutrophils % 67.1 % (37.0-80.0); Platelet Count 328 K/mm3 (142-424); Red Blood Count 5.08 M/mm3 (4.20-5.40); Red Cell Distribution Width 12.4 % (11.5-17.5); White Blood Count 10.6 K/mm3 (4.8-10.8)
[2020-06-23 21:59] LABS: Anion Gap 13.7 mEq/L (5-15); Blood Urea Nitrogen 15 mg/dl (7-17); Calcium 9.5 mg/dl (8.4-10.2); Carbon Dioxide 29 mmol/L (22.0-30.0); Chloride 101 mmol/L (98-107); Creatinine Clearance Estimated 97 mL/min (50-200); Estimated Glomerular Filt Rate 59 ml/min (>60); GFR (African American) 71 ML/MIN (>60); Glucose 109 mg/dl (74-100); Potassium 3.7 mmoL/L (3.5-5.1); Sodium 140 mmol/L (136-145)
[2020-06-23 22:04] LABS: Microscopic, Urine URINE MICROSCOPIC (MICROSCOPIC)
[2020-06-23 22:14] LABS: Troponin I < 0.01 ng/ml (0.00-0.034)
--- NOTE | 2020-06-23 22:16 | PC.NURSE ---
received notification of esr inability to ocmplete by galindo garcia
[2020-06-23 22:17] LABS: T4 (Thyroxine) 9.1 ug/dl (5.53-11.0)
[2020-06-23 22:22] LABS: Amylase 72 U/L (30-110); Lipase 48 U/L (23-300)
[2020-06-23 22:28] LABS: C-Reactive Protein 3.2 mg/L (0-4)
--- NOTE | 2020-06-23 22:34 | HMH.EDCP ---
ED Disposition Clinical Impression: Atypical chest pain Disposition: Home, Self-Care Condition on Discharge: Good Instructions: DI for Atypical Chest Pain Additional Instructions: fluids and see pcp for follow up Referrals: Africa Gill [Primary Care Provider] - - Critical Care Critical Care Time: No Attestation: On 06/23/20, the high probability of a clinically significant, sudden or life threatening deterioration of the following system(s) required my full and direct attention, intervention and personal management. The time I documented below is in addition to time spent performing reported procedures but includes the following listed in this critical care notation. Medical Decision Making - Medical Records Medical records reviewed: Yes: I reviewed the patient's medical records. - Smooth Inquiry Pt receiving controlled substance: No Vital Signs: 06/23/20 21:26 Temperature 98.5 F Temperature Source Oral Pulse Rate [Apical] 94 H Respiratory Rate 20 Blood Pressure [Right Arm] 121/79 Blood Pressure Mean [Right Arm] 93 Blood Pressure Source [Right Arm] Automatic Cuff Blood Pressure Position [Right Arm] Supine 02 Sat by Pulse Oximetry 95 Oxygen Delivery Method Room Air - Lab Data Lab results reviewed: Yes: I reviewed the patient's lab results. Lab Results 06/23/20 21:29: WBC 10.6, RBC 5.08, Hgb 14.6, Hct 44.4, MCV 87.5, MCH 28.8, MCHC 32.9, RDW 12.4, Plt Count 328, MPV 6.9 L, Neut % (Auto) 67.1, Lymph % (Auto) 26.7, [place] % (Auto) 4.7, Eos % (Auto) 0.9, Baso % (Auto) 0.6, Neut # (Auto) 7.1, Lymph # (Auto) 2.8, [place] # (Auto) 0.5, Eos # (Auto) 0.1, Baso # (Auto) 0.1 06/23/20 21:29: Sodium 140, Potassium 3.7, Chloride 101, Carbon Dioxide 29, Anion Gap 13.7, BUN 15, Creatinine 1.10 H, Estimated Creat Clear 97, Estimated GFR 59, Est GFR ( Amer) 71, Glucose 109 H, Calcium 9.5, Troponin I < 0.01, TSH 0.80, Thyroxine (T4) 9.1 06/23/20 21:29: C-Reactive Protein 3.2, Amylase 72, Lipase 48 06/23/20 21:29: Urine Color Yellow, Urine Appearance Clear, Urine pH 6.0, Ur Specific [place] 1.020, Urine Protein Negative, Urine Glucose (UA) Negative, Urine Ketones Negative, Urine Blood Trace-i, Urine Nitrate Negative, Urine Bilirubin Negative, Urine Urobilinogen 0.2, Ur Leukocyte Esterase Negative, Urine RBC Occasional, Ur Squamous Epith Cells 20-50 06/23/20 21:29: Urine HCG, Qual Negative 06/23/20 21:29: D-Dimer 0.41 Result diagrams: 06/23/20 21:29 06/23/20 21:29 Orders (Tests/Meds): ED MEDICATIONS Generic Name Dose Route Start Last Admin Trade Name Freq PRN Reason Stop Dose Admin Sodium Chloride 1,000 mls @ 999 mls/hr 06/23/20 22:00 06/23/20 21:52 Sod Chlor 0.9% 1000ml Bag IV 06/23/20 23:00 999 mls/hr .Q1H1M GEOVANNI Administration Nitroglycerin 0.4 mg 06/23/20 21:47 06/23/20 21:35 Nitroglycerin 0.4mg Sl Tablet SL 07/23/20 21:46 1 tab Q5MINP PRN Administration Chest Pain Discontinued Medications Generic Name Dose Route Start Last Admin Trade Name Freq PRN Reason Stop Dose Admin Aspirin 324 mg 06/23/20 21:47 06/23/20 21:35 Aspirin 81mg Chewable Tablet PO 06/23/20 21:48 324 mg ONCE ONE Administration Ketorolac Tromethamine 30 mg 06/23/20 21:52 06/23/20 21:53 Ketorolac 30mg/Ml Vial IV 06/23/20 21:53 30 mg ONCE ONE Administration ORDERS Category Date Time Status XR chest 2V Stat Exams 06/23/20 21:45 Taken Troponin I Q3H Lab 06/24/20 01:00 Ordered Troponin I Q3H Lab 06/24/20 04:00 Ordered - Radiology Data #1 Image(s): Chest Image Reviewed: Yes I reviewed the patient's radiology image Preliminary Findings: Normal/NAD - ECG Data Tracing #1 Arrhythmias present: sinus tach Ischemic changes: non-specific ST-T wave changes Chest Pain HPI - General Chief Complaint: Chest Pain Stated Complaint: chest pain Time Seen by Provider: 06/23/20 21:40 Mode of Arrival: Ambulatory Source of Information: Patient Limitations: No Limitations
[2020-06-23 22:49] LABS: Appearance,Urine CLEAR (Clear); Bilirubin,Urine Negative (Negative); Blood, Urine TRACE-I (Negative); Color,Urine YELLOW (Yellow); Glucose,Urine (UA) Negative (Negative); Ketones,Urine Negative (Negative); Leukocyte Esterase,Urine Negative (Negative); Nitrate,Urine Negative (Negative); Protein,Urine Negative (Negative); Urobilinogen,Urine 0.2 EU/dl (0.2)
[2020-06-23 22:52] LABS: Urine Pregnancy, HCG Qual. Negative (Negative)
[2020-06-23 22:59] LABS: RBC,Urine Occasional #/hpf (0-3); Squamous Epithelial Cell,Urine 20-50 #/hpf (0-5)
[2020-06-23 23:04] LABS: D-Dimer 0.41 ug/mL (0.15-8.0)
[2020-06-23 23:31] VITALS: BP 107/73; PULSE 85; RESP 14; TEMP 36.9; O2SAT 95
== END 2020-06-23 23:35 | disposition home or self-care (01) ==
PROVIDERS: Emergency Provider Emergency Medicine; PCP Nurse Practitioner Family
DX: R07.89 Other chest pain (principal); Z87.891 Personal history of nicotine dependence
CPT/HCPCS: 71046; 80048; 81001; 81025; 82150; 83690; 84436; 84443; 84484; 85025; 85378; 86140; 93005; 96365; 96375; 99283

== ENCOUNTER → 2021-02-20 15:16 | Outpatient (POV) | payer BC, SELFPAY ==
[2021-02-20 16:04] VITALS: BP 119/75; PULSE 83; RESP 18; O2SAT 98; BMI 34.0
--- NOTE | 2021-02-20 20:11 | HMH.PMCON ---
Assessment and Plan (1) Osteoarthritis of knees, bilateral Status: Chronic Category: Medical Code(s): M17.0 - Bilateral primary osteoarthritis of knee (2) Bilateral knee pain Status: Chronic Category: Medical Code(s): M25.561 - Pain in right knee; M25.562 - Pain in left knee - Assessment and plan all Dx Assessment and Plan for all problems:: Patient has tried and failed conservative therapies of physical therapy which did worsen her pain. She did try anti-inflammatories and did have severe GI upset and is no longer taking anti-inflammatories. She has tried ice and heat therapies and does continue with home stretching. She did undergo intra-articular knee injections bilaterally with no significant relief. She was referred to us for genicular nerve blocks to her knees. She would like to begin with a right knee geniculate block. If the patient has success with treatment to her right knee she would then like to proceed to the left knee. Her pain is affecting her quality of life and daily activity. Her pain is worsening. We will see her back after her genicular block to reevaluate her symptoms. Risks and benefits of the procedure have been explained to the patient. Patient would like to proceed with the procedure. Patient has been instructed to contact the clinic with any concerns before the next appointment. Dr. Bernal has reviewed this note and agrees with this plan of care. This note was dictated using voice recognition software and make contain errors or omissions. HPI - Data of Consult Patient: new to practice Consult date: 02/20/21 Requesting Physician: Abby Little APRN Primary Care Provider: Referral Provider, MD - Consult Narrative Reason for consult: Bilateral knee pain History of present illness: Ms. Soto is a 30 year old female who presents today for consultation for bilateral knee pain. She was referred to us by Dr. Kitty Gee. The patient says that she has had bilateral knee pain with edema. She reports stiffness as well as burning sensation to both knees. This has been ongoing for greater than a year. Patient was referred to orthopedics Dr. Humphrey. Unfortunately the patient did not get any relief with intra-articular injections from his office. As result Dr. Humphrey did refer the patient to rheumatology. He did feel that much of her pain was due to degenerative arthritis in the bilateral knees. Patient does have an MRI of her right knee that was done on December 16, 2020 which showed a report of 1-2 chondral malacia or osteochondral irregularity with moderate suprapatellar effusion. Patient does say that Dr. Humphrey aspirated and injected her knee on 10/21/2020. She says this did not give her any relief. She did have a fall in early November which has irritated her bilateral knees even further. She says that she did hit concrete with both knees. She is now having sensations of popping and cracking of both knees with walking. She says the pain is much worse with activity and when going up or down heel. It does interrupt her sleep. The patient has tried physical therapy for greater than 6 weeks which worsened her pain. She has taken meloxicam and NSAIDs without any significant relief. Unfortunately the anti-inflammatories cause the patient to have severe GI upset and she has stopped taking the medication. She does continue with a home stretching program. Patient says that she is interested in possible genicular nerve blocks to her knees. Her right knee is worse at this time. She would like to proceed with initial treatment to her right knee. She rates her pain a 6 out of 10 today. Patient says that the pain is affecting her mobility and daily activity. CC: Abby Little APRN [facility] History I have reviewed the patient's past medical history: Yes Medical History: Denies:: Cancer, Diabetes Mellitus Type 1, Diabetes Mellitus Type 2, Internal Pacemaker, MRSA *Have you ever received a pneumonia
== END ==
PROVIDERS: Visit Provider Clinical Nurse Specialist Family Health
DX: M17.0 Bilateral primary osteoarthritis of knee (principal)
CPT/HCPCS: 99202; G0463

== ENCOUNTER 2021-02-28 11:56 | Day surgery (SDC) | payer BC, SELFPAY ==
[2021-02-28 12:35] VITALS: BP 116/78; PULSE 71; RESP 18; TEMP 36.4; O2SAT 97; BMI 35.9
[2021-02-28 14:30] VITALS: BP 125/74; PULSE 65; RESP 20; O2SAT 98
[2021-02-28 14:46] VITALS: BP 124/67; PULSE 67; RESP 20; O2SAT 98
[2021-02-28 15:26] VITALS: BP 127/65; PULSE 73; RESP 18; TEMP 36.4; O2SAT 97
--- NOTE | 2021-02-28 16:48 | P.PCN_ITS ---
- Procedure Date: 02/28/21 Time: 16:48 Anesthesiologist:: Jeni Sanchez MD Complications:: None Pre-procedure Diagnosis:: left Knee pain, left knee osteoarthritis Post-procedure Diagnosis:: same Indications for Procedure:: This patient is a very pleasant 30-year-old female who presents today with left- sided knee pain related to the above diagnosis. She has previously undergone intra-articular knee injections with minimal pain relief. She has trialed and failed conservative treatment including oral pain medications and physical therapy for greater than 6 weeks. Today the plan is for her to undergo left- sided genicular nerve blocks. Procedure Details:: Left knee genicular block Informed consent was obtained and the risk and benefits of the procedure was explained to the patient. The patient was taken to the procedure room. The left knee was prepped using ChloraPrep. I placed 22-gauge needles into the area of the left superior medial genicular nerve, left superior lateral genicular nerve and left inferior medial genicular nerve. Needle placement was confirmed in AP and lateral views with dye. We then injected bupivacaine 0.25% 3 mL's and Depo-Medrol 25 mg into each area of the left superior medial genicular nerve, left superior lateral genicular nerve and left inferior medial genicular nerve. Patient tolerated the procedure well with no complications. Plan and Disposition:: Follow-up with this patient in 2 weeks. Will reevaluate pain symptoms at that time.
== END 2021-02-28 14:50 | disposition home or self-care (01) ==
PROVIDERS: PCP Nurse Practitioner Family; Visit Provider Anesthesiology Pain Medicine
DX: M17.12 Unilateral primary osteoarthritis, left knee (principal); E78.5 Hyperlipidemia, unspecified; Z87.891 Personal history of nicotine dependence
CPT/HCPCS: 64454; J1030; Q9966

== ENCOUNTER → 2021-03-20 14:07 | Outpatient (POV) | payer BC, SELFPAY ==
[2021-03-20 14:24] VITALS: BP 119/80; PULSE 92; RESP 18; O2SAT 96; BMI 32.1
--- NOTE | 2021-03-20 15:03 | HMH.PAINSOAP ---
[facility] Pain Management SOAP Note Subjective:: Patient is a 30-year-old white female who presents today for follow-up after a left genicular knee block. Patient is being treated in the clinic for left knee osteoarthritis and chronic left knee pain. She has seen orthopedic provider who informed the patient that it was likely due to arthritis in her knee. She was referred to rheumatology. Rheumatology did provide the patient with injective therapy which did not give her any relief. She says the injection was a cortisone injection. The genicular block did not give her any relief as well. She has tried and failed conservative therapy of physical therapy for more than 6 weeks and does continue with home stretching. She did not get any relief from any of the treatments that have been provided to her at this point. She says her first day, the pain was baseline. Following her second day after the injection, her pain got worse. She feels that the genicular block is actually made the pain worse than before the block. She says now as she is walking she feels a jabbing sensation in the knee . She and her primary care provider are working the patient up for weight loss medication to see if this does help with her joint pain. She would like a refill second opinion from orthopedic surgeon. She would like to stay local. We did discuss [facility] orthopedics. She would like to discuss her options with them. We will also order her compounding cream to apply topically to the area to see if this gives her. The patient's pain is a 5 out of 10 today. Review of Systems General: No recent weight changes, no fever, no sleep disturbances Respiratory: No cough, no shortness of air, no recurring pulmonary infections Cardiovascular/peripheral vascular: No chest pain, no palpitations, no edema, no shortness of breath Gastrointestinal: No new onset incontinence, normal bowel movements reported Genitourinary: No new onset incontinence Musculoskeletal: [] Left knee pain Psychiatric: Normal mood/affect Neurological: [Denies weakness in extremities], [denies balance issues] Objective:: Physical exam General: Alert and oriented x3, no acute distress, pleasant and cooperative, [on room air] Lungs: Respirations even and unlabored, symmetrical chest expansion Eyes: PERRL Musculoskeletal: Flexion and extension of [] left lower extremity guarded secondary to pain, deep tendon reflexes normal, strength in upper and lower extremities [4/5], [abnormal gait noted] Neurological: Speech clear, 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 We will also order patient compounding cream to apply topically to the area. Unfortunately, we have provided the patient with injective therapy along with genicular blocks and she did not get relief. We will see her back to see if the compounding cream has given her any relief. We will follow up with her in 1 month. Patient has been instructed to contact the clinic with any concerns before the next appointment. Dr. Bernal has reviewed this note and agrees with this plan of care. This note was dictated using voice recognition software and make contain errors or omissions. [facility] History I have reviewed the patient's past medical history: Yes Medical History: Denies:: Cancer, Diabetes Mellitus Type 1, Diabetes Mellitus Type 2, Internal Pacemaker, MRSA, Seizures *Have you ever received a pneumonia vaccine?: No *Have you received a flu vaccine this season?: No Other Medical History: Denies: Blood Transfusion Reaction Laterality Cases: Bilateral: Carpal Tunnel Release Other Surgeries: Yes: Colonoscopy, , Dilation and Curettage, Tubal Ligation. No: Pacemaker Amputation: No Fractures: No - *Social History Smoking Status: Former smoker Tobacco Type: cigar
== END ==
PROVIDERS: PCP Nurse Practitioner Family; Visit Provider Clinical Nurse Specialist Family Health
DX: M17.12 Unilateral primary osteoarthritis, left knee (principal)
CPT/HCPCS: 99212; G0463

== ENCOUNTER → 2021-04-07 15:52 | Outpatient (CLI) | payer BC, SELFPAY ==
[2021-04-07 16:28] LABS: Basophils % 0.3 % (0.1-2.0); Eosinophils # 0.1 K/mm3 (0.0-0.4); Eosinophils % 0.9 % (0.1-12.0); Hematocrit 40.6 % (37.0-47.0); Hemoglobin 13.1 g/dL (12.2-16.2); Lymphocytes # 2.5 K/mm3 (0.7-4.5); Lymphocytes % 30.2 % (10-50); Mean Corpuscular HGB Conc 32.4 g/dL (31.8-35.4); Mean Corpuscular Hemoglobin 27.3 pg (27.0-31.2); Mean Corpuscular Volume 84.4 fl (81-99); Mean Platelet Volume 6.7 fl (7.4-10.4); Monocytes # 0.4 K/mm3 (0.1-1.0); Monocytes % 5.3 % (1.7-9.3); Neutrophils # 5.2 K/mm3 (1.8-7.8); Neutrophils % 63.3 % (37.0-80.0); Platelet Count 322 K/mm3 (142-424); Red Blood Count 4.81 M/mm3 (4.20-5.40); Red Cell Distribution Width 12.5 % (11.5-17.5); White Blood Count 8.2 K/mm3 (4.8-10.8)
[2021-04-07 18:01] LABS: Chloride 102 mmol/L (98-107); Potassium 4.4 mmoL/L (3.5-5.1); Sodium 138 mmol/L (136-145)
[2021-04-07 18:04] LABS: Alanine Aminotransferase 16 U/L (12-78); Albumin Level 4.8 g/dl (3.5-5.0); Albumin/Globulin Ratio 1.7 (1.1-1.8); Alkaline Phosphatase 83 U/L (38-126); Anion Gap 12.4 mEq/L (5-15); Aspartate Amino Transferase 26 U/L (14-36); Bilirubin,Total 0.6 mg/dl (0.2-1.3); Blood Urea Nitrogen 17 mg/dl (7-17); Carbon Dioxide 28 mmol/L (22.0-30.0); Estimated Glomerular Filt Rate 84 ml/min (>60); GFR (African American) 102 ML/MIN (>60); Globulin 2.9 g/dL (1.3-3.2); Total Protein,Serum 7.7 g/dl (6.3-8.2)
[2021-04-07 18:05] LABS: Calcium 9.3 mg/dl (8.4-10.2); Glucose 84 mg/dl (74-100)
[2021-04-07 18:10] LABS: C-Reactive Protein 2.6 mg/L (0-4)
[2021-04-07 18:22] LABS: T4 (Thyroxine) 9.7 ug/dl (5.53-11.0)
[2021-04-07 18:36] LABS: Thyroid Stimulating Hormone 0.89 uIU/mL (0.465-4.68)
[2021-04-07 20:59] LABS: Erythrocyte Sedimentation Rate 18 mm/hr (0-20)
[2021-04-09 08:32] LABS: FSH 3.1 mIU/mL (.); HIV Screen 4th Generation wRfx Non Reactive (Non Reactive); LH 9.1 mIU/mL (.); Progesterone 9.8 ng/mL (.); RA Latex Turbid. <10.0 IU/mL (0.0-13.9); Testosterone,Total 15 ng/dL (13-71); Thyroid Peroxidase Antibodies 9 IU/mL (0-34)
[2021-04-09 12:11] LABS: Hep A Ab, IgM Negative (Negative); Hepatitis B Core Antibody IgM Negative (Negative); Hepatitis B Surface Antigen Negative (Negative); Hepatitis C Antibody <0.1 s/co ratio (0.0-0.9)
[2021-04-09 14:12] LABS: Anti-Centromere B Antibodies <0.2 AI (0.0-0.9); Anti-DNA (DS) Ab Qn <1 IU/mL (0-9); Anti-Jo-1 <0.2 AI (0.0-0.9); Anti-Smith Antibody <0.2 AI (0.0-0.9); Antichromatin Antibodies <0.2 AI (0.0-0.9); Antiscleroderma-70 Antibodies <0.2 AI (0.0-0.9); RNP Antibodies <0.2 AI (0.0-0.9); Sjogren's Anti-SS-A <0.2 AI (0.0-0.9); Sjogren's Anti-SS-B <0.2 AI (0.0-0.9)
[2021-04-10 00:04] LABS: Anti-Cyclic Citrullinated Pept 7 units (0-19)
[2021-04-10 04:03] LABS: Lupus Reflex Interpretation Comment: (.); PTT-LA 39.8 sec (0.0-51.9); dRVVT 40.2 sec (0.0-47.0)
[2021-04-10 07:34] LABS: Thyroid Stimulating Immunoglob <0.10 IU/L (0.00-0.55)
[2021-04-10 15:34] LABS: Estrogen 161 pg/mL (.)
== END ==
PROVIDERS: Visit Provider Physician Assistant
DX: M25.50 Pain in unspecified joint (principal); R53.83 Other fatigue; R63.5 Abnormal weight gain; R26.89 Other abnormalities of gait and mobility; Z11.4 Encounter for screening for human immunodeficiency virus [HIV]
CPT/HCPCS: 36415; 80053; 80074; 82672; 83001; 83002; 84144; 84403; 84436; 84443; 84445; 85025; 85613; 85651; 86140; 86200; 86225; 86235; 86376; 86431; 86618; 86703; G0432

== ENCOUNTER → 2021-04-22 16:09 | Outpatient (CLI) | payer BC, SELFPAY ==
--- NOTE | 2021-04-22 16:09 | MR_ITS ---
PROCEDURE: MR HEAD/BRAIN WO CON CLINICAL INDICATION: weakness, instability, memory loss, headaches, COMPARISON: No exams were available for comparison TECHNIQUE: Routine multiplanar multi echo sequences are performed without gadolinium enhancement. FINDINGS: No midline shift, mass effect, intracranial hemorrhage or hydrocephalus. No evidence of acute infarction. The cerebellopontine angles, cerebellum brainstem have an unremarkable appearance. There are a few small T2 white matter hyperintensities in the frontal lobes on both sides. These are nonspecific. The pituitary, optic chiasm, corpus callosum, and craniocervical junction have an unremarkable appearance. No mastoid effusion apparent. Mucosal thickening is present within the sphenoid sinus lobular in nature on the left side suggesting retention cyst. There is a small left maxillary retention cyst along the floor of the left maxillary sinus. No sinus air-fluid level. The orbits have an unremarkable appearance. IMPRESSION: 1. There are few scattered bilateral T2 white matter hyperintensities of the frontal lobes. These are nonspecific. Migraine headache, demyelinating process, or ischemic gliotic foci is included in the differential diagnosis. Please correlate with clinical parameters. Consider six-month follow-up to confirm stability. 2. Paranasal sinus disease 3. Otherwise negative MRI of the brain without contrast. Dictated by: Jose L Dias MD 04/23/2021 06:58 Jose L Dias MD in [place] 04/23/2021 06:58
== END ==
PROVIDERS: PCP Physician Assistant; Visit Provider Physician Assistant
DX: R26.89 Other abnormalities of gait and mobility (principal)
CPT/HCPCS: 70551

== ENCOUNTER 2021-05-28 17:20 | Emergency (ER) | payer BC, SELFPAY ==
--- NOTE | 2021-05-28 18:30 | PC.NURSE ---
pt notified of high volume of pt in ER, will get pt in a room as soon as one is available
[2021-05-28 20:48] VITALS: BMI 34.7
[2021-05-28 20:56] LABS: Influenza A, PCR Not Detected (NotDetected); Influenza B, PCR Not Detected (NotDetected)
[2021-05-28 20:58] VITALS: BP 137/65; PULSE 118; RESP 18; TEMP 38.1; O2SAT 99; BMI 34.7
[2021-05-28 20:59] LABS: Basophils % 0.7 % (0.1-2.0); Eosinophils # 0.1 K/mm3 (0.0-0.4); Eosinophils % 1.9 % (0.1-12.0); Hematocrit 37.6 % (37.0-47.0); Hemoglobin 12.6 g/dL (12.2-16.2); Lymphocytes # 0.9 K/mm3 (0.7-4.5); Lymphocytes % 13.5 % (10-50); Mean Corpuscular HGB Conc 33.6 g/dL (31.8-35.4); Mean Corpuscular Hemoglobin 29.3 pg (27.0-31.2); Mean Corpuscular Volume 87.2 fl (81-99); Monocytes # 0.5 K/mm3 (0.1-1.0); Monocytes % 6.7 % (1.7-9.3); Neutrophils # 5.1 K/mm3 (1.8-7.8); Neutrophils % 77.2 % (37.0-80.0); Platelet Count 322 K/mm3 (142-424); Red Blood Count 4.31 M/mm3 (4.20-5.40); Red Cell Distribution Width 12.6 % (11.5-17.5); White Blood Count 6.6 K/mm3 (4.8-10.8)
--- NOTE | 2021-05-28 21:11 | HMH.EDGENADL ---
ED Disposition Clinical Impression: COVID-19 virus infection, Pain of right lower extremity Pneumonia Qualifiers: Pneumonia type: due to unspecified organism Laterality: left Lung location: lower lobe of lung Qualified Code(s): J18.9 - Pneumonia, unspecified organism Disposition: Home, Self-Care Condition on Discharge: Good Instructions: DI for COVID-19 (Suspected or Confirmed ), DI for Pneumonia -- Adult Additional Instructions: Return tomorrow morning for Doppler ultrasound of your right leg. The alarm technician will call you with a time to come in. Schedule outpatient monoclonal antibody therapy, you will receive a call from the hospital to schedule. Tylenol for fever. Additional instructions for PNEUMONIA: Take antibiotics as prescribed. See your physician as soon as possible for further evaluation. Return immediately if you have an uncontrollable fever greater than 102 degrees, difficulty breathing or shortness of breath, persistent vomiting, or severe chest pain. COVID-19 Isolation: Isolate yourself for a MINIMUM of 10 days: What to do: Monitor your symptoms. If you have an emergency warning sign (including trouble breathing), seek emergency medical care immediately. Stay in a separate room from other household members, if possible. Use a separate bathroom, if possible. Avoid contact with other members of the household and pets. Don?t share personal household items, like cups, towels, and utensils. Wear a mask when around other people if able. You can be around others AFTER: 10 days since symptoms first appeared AND 24 hours with no fever without the use of fever-reducing medications AND Other symptoms of COVID-19 are improving Prescriptions: Cefdinir [Omnicef 300mg Capsule] 300 mg PO BID #20 cap Transmission Status: Pending to [facility] # Azithromycin [Zithromax 250mg tab] 250 mg PO DAILY #4 tab Transmission Status: Pending to [facility] # Referrals: Marilyn Perkins PA [Primary Care Provider] - - Critical Care Critical Care Time: No Attestation: On 05/28/21, the high probability of a clinically significant, sudden or life threatening deterioration of the following system(s) required my full and direct attention, intervention and personal management. The time I documented below is in addition to time spent performing reported procedures but includes the following listed in this critical care notation. Medical Decision Making - Smooth Inquiry Pt receiving controlled substance: No Vital Signs: 05/28/21 20:58 Temperature 100.6 F H Temperature Source Oral Pulse Rate [Right Radial] 118 H Respiratory Rate 18 Blood Pressure [Right Arm] 137/65 Blood Pressure Mean [Right Arm] 89 Blood Pressure Source [Right Arm] Automatic Cuff Blood Pressure Position [Right Arm] Sitting 02 Sat by Pulse Oximetry 99 Oxygen Delivery Method Room Air - Lab Data Lab Results 05/28/21 20:43: WBC 6.6, RBC 4.31, Hgb 12.6, Hct 37.6, MCV 87.2, MCH 29.3, MCHC 33.6, RDW 12.6, Plt Count 322, MPV 7.0 L, Neut % (Auto) 77.2, Lymph % (Auto) 13.5, [place] % (Auto) 6.7, Eos % (Auto) 1.9, Baso % (Auto) 0.7, Neut # (Auto) 5.1, Lymph # (Auto) 0.9, [place] # (Auto) 0.5, Eos # (Auto) 0.1, Baso # (Auto) 0.0 05/28/21 20:43: Sodium 138, Potassium 4.3, Chloride 100, Carbon Dioxide 28, Anion Gap 14.3, BUN 17, Creatinine 0.80, Estimated Creat Clear 135, Estimated GFR 84, Est GFR ( Amer) 102, Glucose 108 H, Calcium 9.2, Total Bilirubin 0.4, AST 32, ALT 26, Alkaline Phosphatase 85, Total Protein 8.2, Albumin 4.6, Globulin 3.6 H, Albumin/Globulin Ratio 1.3 05/28/21 20:43: Serum HCG, Qual Negative 05/28/21 20:43: SARS-CoV-2 (PCR) Detected A, Influenza A Untype (PCR) Not detected, Influenza Type B (PCR) Not detected 05/28/21 20:43: ESR 29 H 05/28/21 20:43: C-Reactive Protein 31.4 H 05/28/21 20:43: D-Dimer 1.04 H 05/28/21 22:00: Urine Color Yellow, Urine Appearance Clear, Urine
[2021-05-28 21:12] LABS: Alanine Aminotransferase 26 U/L (12-78); Albumin Level 4.6 g/dl (3.5-5.0); Albumin/Globulin Ratio 1.3 (1.1-1.8); Alkaline Phosphatase 85 U/L (38-126); Anion Gap 14.3 mEq/L (5-15); Aspartate Amino Transferase 32 U/L (14-36); Bilirubin,Total 0.4 mg/dl (0.2-1.3); Blood Urea Nitrogen 17 mg/dl (7-17); Calcium 9.2 mg/dl (8.4-10.2); Carbon Dioxide 28 mmol/L (22.0-30.0); Chloride 100 mmol/L (98-107); Creatinine Clearance Estimated 135 mL/min (50-200); Estimated Glomerular Filt Rate 84 ml/min (>60); GFR (African American) 102 ML/MIN (>60); Globulin 3.6 g/dL (1.3-3.2); Glucose 108 mg/dl (74-100); Potassium 4.3 mmoL/L (3.5-5.1); Sodium 138 mmol/L (136-145); Total Protein,Serum 8.2 g/dl (6.3-8.2)
--- NOTE | 2021-05-28 21:12 | XR_ITS ---
PROCEDURE INFORMATION: Exam: XR Chest Exam date and time: 05/28/2021 9:12 PM Age: 30 years old Clinical indication: Pain; Patient HX: SOA, chest pressure, fever TECHNIQUE: Imaging protocol: XR of the chest. Views: 2 views. COMPARISON: CR XR CHEST 2V 06/23/2020 9:44 PM FINDINGS: Lungs: Mild diffuse interstitial prominence with subtle perihilar opacities, possibly atypical pneumonia. Differential would include mild pulmonary edema. No focal airspace consolidation. Pleural spaces: No pleural effusion. No pneumothorax. Heart/Mediastinum: Normal heart size. Bones/joints: Unremarkable. IMPRESSION: Possible atypical pneumonia, versus mild pulmonary edema.
[2021-05-28 21:37] LABS: Coronavirus 19, PCR Detected (NotDetected)
[2021-05-28 21:43] LABS: HCG Qualitative, Serum Negative (Negative)
--- NOTE | 2021-05-28 21:50 | CT_ITS ---
PROCEDURE INFORMATION: Exam: CTA Chest With Contrast Exam date and time: 05/28/2021 9:50 PM Age: 30 years old Clinical indication: Pain; Shortness of breath; Chest pressure; Patient HX: Covid; Additional info: SOA, cp, recent knee surgery, R/O pe TECHNIQUE: Imaging protocol: Computed tomographic angiography of the chest with contrast. 3D rendering (Not supervised by radiologist): MIP and/or 3D reconstructed images were created by the technologist. Radiation optimization: All CT scans at this facility use at least one of these dose optimization techniques: automated exposure control; mA and/or kV adjustment per patient size (includes targeted exams where dose is matched to clinical indication); or iterative reconstruction. Contrast material: ISO 370; Contrast volume: 70 ml; Contrast route: INTRAVENOUS (IV); COMPARISON: CR XR CHEST 2V 05/28/2021 9:12 PM FINDINGS: Pulmonary arteries: No pulmonary embolus. Mild artifactual heterogeneity of the subsegmental pulmonary arteries. Aorta: Unremarkable. No aortic aneurysm. No aortic dissection. Other arteries: Anatomic variation, with common origin of the celiac artery and superior mesenteric artery. There is a separate origin of the left gastric artery directly from the aorta. Lungs: There is an ill-defined ground-glass opacity measuring approximately 4.5 x 1.9 cm in the left lower lobe, compatible with pneumonia. Pleural spaces: Unremarkable. No pneumothorax. No pleural effusion. Heart: Unremarkable. No cardiomegaly. No pericardial effusion. Lymph nodes: There are scattered bilateral axillary lymph nodes measuring up to 1.1 cm in short axis, most likely reactive. There are calcified prevascular lymph nodes in the mediastinum, compatible with old granulomatous disease. Bones/joints: Unremarkable. No acute fracture. Soft tissues: Unremarkable. IMPRESSION: 1. No evidence of pulmonary embolus. 2. Ill-defined ground-glass opacity in the left lower lobe compatible with pneumonia.
[2021-05-28 22:06] LABS: D-Dimer 1.04 ug/mL (0.0-0.5)
[2021-05-28 22:08] LABS: Microscopic, Urine URINE MICROSCOPIC (MICROSCOPIC)
[2021-05-28 22:09] LABS: Appearance,Urine CLEAR (Clear); Bilirubin,Urine Negative (Negative); Blood, Urine TRACE-I (Negative); Color,Urine YELLOW (Yellow); Glucose,Urine (UA) Negative (Negative); Ketones,Urine Negative (Negative); Leukocyte Esterase,Urine Negative (Negative); Nitrate,Urine Negative (Negative); Protein,Urine Negative (Negative); Urobilinogen,Urine 0.2 EU/dl (0.2)
[2021-05-28 22:19] LABS: C-Reactive Protein 31.4 mg/L (0-4)
[2021-05-28 22:21] LABS: Bacteria,Urine 1+ /lpf
[2021-05-28 22:34] LABS: Erythrocyte Sedimentation Rate 29 mm/hr (0-20)
--- NOTE | 2021-05-28 22:34 | PC.NURSE ---
pt gone to ct
[2021-05-29 00:28] VITALS: BP 137/48; PULSE 74; RESP 18; TEMP 37; O2SAT 98
== END 2021-05-29 00:47 | disposition home or self-care (01) ==
PROVIDERS: Emergency Provider Emergency Medicine; PCP Physician Assistant
DX: U07.1 COVID-19 (principal); J12.82 Pneumonia due to coronavirus disease 2019; M79.661 Pain in right lower leg; Z87.891 Personal history of nicotine dependence
CPT/HCPCS: 71046; 71275; 80053; 81001; 83605; 84703; 85025; 85378; 85651; 86140; 87040; 96365; 96366; 96372; 99283; C9803; J0456; Q9967; U0003; U0005

== ENCOUNTER → 2021-05-29 15:26 | Outpatient (CLI) | payer BC, SELFPAY ==
--- NOTE | 2021-05-29 | CA_ITS ---
APPROVED REPORT Right Lower Extremity Venous Study for DVT. [place]: CT Indications Lower Extremity Pain: Right Lower Extremity Edema: Right Risk Factors Post OP Pt had knee surgery 05/23/21. Pt + for covid 19 Vein Imaging CFV (R): compressive, spontaneous, phasic, augmentation SFJ (R): compressive, spontaneous, phasic, augmentation FEM (R): compressive, spontaneous, phasic, augmentation POP (R): compressive, spontaneous, phasic, augmentation DFV (R): compressive, spontaneous, phasic, augmentation PTV (R): compressive, spontaneous, phasic, augmentation GSV (R): compressive, spontaneous, phasic, augmentation SSV (R): compressive, spontaneous, phasic, augmentation Peroneals (R):compressive, spontaneous, phasic, augmentation GAS (R): compressive, spontaneous, phasic, augmentation Findings RLE negative for DVT/SVT Vessels compressible No reflux noted Conclusion RLE negative for DVT/SVT Vessels compressible No reflux noted Electronically signed by : Jose L Dias MD 06/02/2021 16:21:34
== END ==
PROVIDERS: PCP Physician Assistant; Visit Provider Emergency Medicine
DX: M79.604 Pain in right leg (principal)
CPT/HCPCS: 93971

== ENCOUNTER → 2021-06-03 12:09 | Outpatient (CLI) | payer BC, SELFPAY ==
[2021-06-03] VITALS (8 sets, daily range): BP systolic 102–113; BP diastolic 64–72; PULSE 84–91; RESP 16–18; TEMP 36.4–36.7; O2SAT 96–97; BMI 35.3
--- NOTE | 2021-06-03 12:11 | XR_ITS ---
PROCEDURE: XR CHEST PORTABLE CLINICAL HISTORY: COVID 19, pneumonia COMPARISON: CR CXR2V XR chest 2V from 11/18/2017 CR XR CHEST 2V from 06/23/2020 CR XR CHEST 2V from 05/28/[address] ANGIO CHEST PE PROTOCOL from 05/28/2021 FINDINGS: The cardiomediastinal silhouette and pulmonary vascularity are within normal limits. The lungs are clear without infiltrates, suspicious nodules, or pleural effusions. No acute bony abnormalities. IMPRESSION: No acute findings. Dictated by: Jose L Dias MD 06/03/2021 14:31 Jose L Dias MD in [facility] 06/03/2021 14:31
== END ==
PROVIDERS: PCP Physician Assistant; Visit Provider Emergency Medicine
DX: U07.1 COVID-19 (principal)
CPT/HCPCS: 71045; 96365

== ENCOUNTER → 2021-06-04 17:02 | Outpatient (CLI) | payer BC, SELFPAY | PROVIDERS: Visit Provider Physician Assistant | DX: J18.9 Pneumonia, unspecified organism (principal) | CPT/HCPCS: 87070; 87205 ==

== ENCOUNTER → 2021-06-20 18:27 | Outpatient (CLI) | payer BC, SELFPAY | PROVIDERS: Visit Provider Family Medicine | DX: N39.0 Urinary tract infection, site not specified (principal) | CPT/HCPCS: 87086 ==

== ENCOUNTER → 2021-06-30 09:37 | Outpatient (CLI) | payer BC, SELFPAY ==
--- NOTE | 2021-06-30 09:38 | CT_ITS ---
PROCEDURE: CT ABDOMEN PELVIS WO CON CLINICAL INDICATION: stone protocol COMPARISON: CT CT ABDOMEN PELVIS W CON from 09/08/2019 TECHNIQUE: Axial images obtained with sagittal and coronal reformats. All CT scans at the facility use one or more dose reduction, viz: automated exposure control, ma/kV adjustment per patient size (including targeted exams where dose is matched to indication, i.e. head), or iterative reconstruction technique. FINDINGS: LOWER THORAX: No acute finding ABDOMEN & PELVIS: The liver, spleen, adrenal glands, and pancreas has an unremarkable appearance. No renal or ureteral calculi. No hydronephrosis. No intestinal obstruction or free air. Surgical clip is present in the right lower quadrant anterior to the ascending colon. No evidence of appendicitis. A tubal ligation clip is present in the right adnexal region. No left adnexal tubal ligation clips present. Previously there was a tubal ligation clip in the left adnexa. The clip anterior to the ascending colon may very well represent a dislodged and migrated tubal ligation clip. IMPRESSION: No acute finding Displaced and migrated left-sided tubal ligation clip now lying anterior to the ascending colon. Dictated by: Jose L Dias MD 06/30/2021 16:50 Jose L Dias MD in [facility] 06/30/2021 16:50
== END ==
PROVIDERS: PCP Physician Assistant; Visit Provider Family Medicine
DX: R10.9 Unspecified abdominal pain (principal)
CPT/HCPCS: 74176

== ENCOUNTER 2021-07-03 20:45 | Emergency (ER) | payer BC, SELFPAY ==
[2021-07-03 20:46] VITALS: BP 133/99; PULSE 116; RESP 16; TEMP 36.8; O2SAT 97; BMI 37.3
--- NOTE | 2021-07-03 21:13 | XR_ITS ---
PROCEDURE INFORMATION: Exam: XR Abdomen Exam date and time: 07/03/2021 9:13 PM Age: 30 years old Clinical indication: Fever and nausea and vomiting; Abdominal pain; Patient HX: Low back pain with nausea and vomiting for 1 week, fever; Additional info: Abd pain TECHNIQUE: Imaging protocol: XR of the abdomen. Views: 2 Views. Upright and supine views. COMPARISON: CT ABDOMEN PELVIS WO CON 06/30/2021 9:52 AM FINDINGS: Tubes, catheters and devices: There is a tubal ligation clip identified within the right adnexal region. Left tubal ligation clip has migrated into the right flank. This was seen on prior CT examination of 06/30/2021. Gastrointestinal tract: Normal. No bowel dilation. Intraperitoneal space: Normal. No free air. Bones/joints: Unremarkable for age. IMPRESSION: No acute findings.
--- NOTE | 2021-07-03 21:13 | XR_ITS ---
PROCEDURE INFORMATION: Exam: XR Chest Exam date and time: 07/03/2021 9:13 PM Age: 30 years old Clinical indication: Fever; Patient HX: HX of covid; Additional info: Abd pain TECHNIQUE: Imaging protocol: XR of the chest. Views: 2 views. COMPARISON: CR XR CHEST PORTABLE 06/03/2021 12:12 PM FINDINGS: Lungs: Unremarkable. No consolidation. Pleural spaces: Unremarkable. No pleural effusion. No pneumothorax. Heart/Mediastinum: Unremarkable. No cardiomegaly. Bones/joints: Unremarkable. IMPRESSION: No acute findings.
[2021-07-03 21:41] LABS: Microscopic, Urine URINE MICROSCOPIC (MICROSCOPIC)
[2021-07-03 21:43] LABS: Appearance,Urine SL CLOUDY (Clear); Bilirubin,Urine Negative (Negative); Blood, Urine Negative (Negative); Color,Urine YELLOW (Yellow); Glucose,Urine (UA) Negative (Negative); Ketones,Urine 2+ (Negative); Leukocyte Esterase,Urine Negative (Negative); Nitrate,Urine Negative (Negative); Protein,Urine Negative (Negative); Specific Gravity, Urine 1.025 (1.005-1.030); Urobilinogen,Urine 0.2 EU/dl (0.2)
[2021-07-03 21:51] LABS: WBC,Urine Occasional #/hpf (0-3)
[2021-07-03 21:52] LABS: Bacteria,Urine Trace /lpf
[2021-07-03 22:40] LABS: Basophils % 0.4 % (0.1-2.0); Eosinophils # 0.1 K/mm3 (0.0-0.4); Eosinophils % 0.7 % (0.1-12.0); Hematocrit 40.6 % (37.0-47.0); Hemoglobin 13.7 g/dL (12.2-16.2); Lymphocytes # 2.5 K/mm3 (0.7-4.5); Lymphocytes % 26.7 % (10-50); Mean Corpuscular HGB Conc 33.8 g/dL (31.8-35.4); Mean Corpuscular Hemoglobin 29.3 pg (27.0-31.2); Mean Corpuscular Volume 86.7 fl (81-99); Mean Platelet Volume 7.8 fl (7.4-10.4); Monocytes # 0.4 K/mm3 (0.1-1.0); Monocytes % 4.4 % (1.7-9.3); Neutrophils # 6.3 K/mm3 (1.8-7.8); Neutrophils % 67.8 % (37.0-80.0); Platelet Count 412 K/mm3 (142-424); Red Blood Count 4.68 M/mm3 (4.20-5.40); Red Cell Distribution Width 13.5 % (11.5-17.5); White Blood Count 9.3 K/mm3 (4.8-10.8)
[2021-07-03 22:42] LABS: Chloride 102 mmol/L (98-107); Potassium 3.9 mmoL/L (3.5-5.1); Sodium 138 mmol/L (136-145)
[2021-07-03 22:44] LABS: Blood Urea Nitrogen 17 mg/dl (7-17); Creatinine Clearance Estimated 156 mL/min (50-200); Estimated Glomerular Filt Rate 98 ml/min (>60); GFR (African American) 119 ML/MIN (>60)
[2021-07-03 22:45] LABS: Alanine Aminotransferase 23 U/L (12-78); Albumin Level 4.7 g/dl (3.5-5.0); Albumin/Globulin Ratio 1.4 (1.1-1.8); Alkaline Phosphatase 89 U/L (38-126); Anion Gap 13.9 mEq/L (5-15); Aspartate Amino Transferase 35 U/L (14-36); Bilirubin,Total 0.3 mg/dl (0.2-1.3); Calcium 9.4 mg/dl (8.4-10.2); Carbon Dioxide 26 mmol/L (22.0-30.0); Globulin 3.3 g/dL (1.3-3.2); Glucose 92 mg/dl (74-100); Lipase 65 U/L (23-300)
--- NOTE | 2021-07-03 23:42 | HMH.EDGENADL ---
ED Disposition Clinical Impression: Back pain Qualifiers: Back pain location: low back pain Chronicity: chronic Back pain laterality: bilateral Sciatica presence: without sciatica Qualified Code(s): M54.50 - Low back pain, unspecified Disposition: Home, Self-Care Condition on Discharge: Fair Instructions: DI for Low Back Pain Referrals: Marilyn Perkins PA [Primary Care Provider] - Papito Keller MD [Staff Physician] - - Critical Care Critical Care Time: No Attestation: On 07/03/21, the high probability of a clinically significant, sudden or life threatening deterioration of the following system(s) required my full and direct attention, intervention and personal management. The time I documented below is in addition to time spent performing reported procedures but includes the following listed in this critical care notation. Medical Decision Making - Smooth Inquiry Pt receiving controlled substance: No Vital Signs: 07/03/21 20:46 07/04/21 00:06 07/04/21 00:07 Temperature 98.2 F 98.2 F Temperature Source Oral Oral Pulse Rate 75 Pulse Rate [Right] 116 H Respiratory Rate 16 19 Blood Pressure 132/78 Blood Pressure [Right Arm] 133/99 H Blood Pressure Mean [Right Arm] 110 02 Sat by Pulse Oximetry 97 Oxygen Delivery Method Room Air Room Air - Lab Data Lab Results 07/03/21 21:36: Urine Color Yellow, Urine Appearance Sl cloudy, Urine pH 6.0, Ur Specific [place] 1.025, Urine Protein Negative, Urine Glucose (UA) Negative, Urine Ketones 2+, Urine Blood Negative, Urine Nitrate Negative, Urine Bilirubin Negative, Urine Urobilinogen 0.2, Ur Leukocyte Esterase Negative, Urine WBC Occasional, Ur Squamous Epith Cells 5-10, Urine Bacteria Trace 07/03/21 22:14: WBC 9.3, RBC 4.68, Hgb 13.7, Hct 40.6, MCV 86.7, MCH 29.3, MCHC 33.8, RDW 13.5, Plt Count 412, MPV 7.8, Neut % (Auto) 67.8, Lymph % (Auto) 26.7, [place] % (Auto) 4.4, Eos % (Auto) 0.7, Baso % (Auto) 0.4, Neut # (Auto) 6.3, Lymph # (Auto) 2.5, [place] # (Auto) 0.4, Eos # (Auto) 0.1, Baso # (Auto) 0.0 07/03/21 22:14: Sodium 138, Potassium 3.9, Chloride 102, Carbon Dioxide 26, Anion Gap 13.9, BUN 17, Creatinine 0.70, Estimated Creat Clear 156, Estimated GFR 98, Est GFR ( Amer) 119, Glucose 92, Calcium 9.4, Total Bilirubin 0.3, AST 35, ALT 23, Alkaline Phosphatase 89, Total Protein 8.0, Albumin 4.7, Globulin 3.3 H, Albumin/Globulin Ratio 1.4, Lipase 65 Result diagrams: 07/03/21 22:14 07/03/21 22:14 Orders (Tests/Meds): ED MEDICATIONS Discontinued Medications Generic Name Dose Route Start Last Admin Trade Name Kitq PRN Reason Stop Dose Admin Ketorolac Tromethamine 30 mg 07/03/21 22:06 07/03/21 22:21 Ketorolac 30mg/Ml Vial IV 07/03/21 22:07 30 mg ONCE ONE Administration Methocarbamol 500 mg 07/04/21 22:06 Methocarbamol 500mg Tablet PO 07/04/21 22:07 ONCE ONE Methocarbamol 500 mg 07/03/21 22:06 07/03/21 22:24 Methocarbamol 500mg Tablet PO 07/03/21 22:07 500 mg ONCE ONE Administration Medical Decision Narrative: Patient is a 30-year-old female presenting to emergency department chief complaint of back pain. Differential diagnosis includes pyelonephritis, musculoskeletal injury, migration of surgical clip, pneumonia, among others. Given this plan order CBC, CMP, chest x-ray, UA, abdominal x-ray. Given the patient had recently had a CT on 1017 and does not have significant change in her symptoms since this time did not believe a repeat CT would further elucidate the etiology of the patient's symptoms. She is given Robaxin and Toradol for analgesia. UA was nonconcerning for acute urinary tract infection, CBC and CMP are grossly within normal limits. Normal x-ray did not show further migration of the clip. Chest x-ray was grossly normal. These findings are discussed with the patient, she stated that she did have some mild improvement in her symptoms however she found that at home they were also relapsin
[2021-07-04 00:06] VITALS: BP 132/78; PULSE 75; RESP 19; TEMP 36.8; O2SAT 99
== END 2021-07-04 00:12 | disposition home or self-care (01) ==
PROVIDERS: Emergency Provider Emergency Medicine; PCP Physician Assistant
DX: M54.50 Low back pain, unspecified (principal); Z87.891 Personal history of nicotine dependence
CPT/HCPCS: 71046; 74019; 80053; 81001; 83690; 85025; 96374; 96375; 99283

== ENCOUNTER 2021-09-23 14:33 | Emergency (ER) | payer BC, SELFPAY ==
[2021-09-23 15:40] VITALS: BP 133/82; PULSE 89; RESP 19; TEMP 36.8; O2SAT 98; BMI 29.2
--- NOTE | 2021-09-23 15:47 | HMH.EDUTC ---
[facility] [place] Clinical Impression: Sinusitis Qualifiers: Sinusitis location: unspecified location Chronicity: unspecified Qualified Code(s): J32.9 - Chronic sinusitis, unspecified Disposition: Home, Self-Care Condition on Discharge: Good Instructions: Sinusitis, DI for Sinusitis Additional Instructions: *Monitor Temp, Over the counter Motrin or Tylenol as directed/as needed Tylenol every 4 hours and Motrin every 6 hours (as long as your family doctor has told you that you can take it) for fever or pain. and straight to ER if unable to lower temp less than 101.0 after medication given *Warm salt water gargles may help to soothe the throat *Throat Lozenges *Warm fluids like tea with honey may help to soothe the throat *Sleep elevated *Humidifier/Vaporizer Saline spray in your nose may help with dryness and irritation Take oral medication as prescribed Follow up IMMEDIATELY for new or worsening symptoms or no Noticeable improvement over the next 48-72 hours. 911 for difficulty breathing or swallowing Prescriptions: methylPREDNISolone [Medrol 4mg tab] 4 mg PO DIRECTED #21 tab Transmission Status: Pending to [facility] # Azithromycin [Z-Emanuel 250mg Tab] 250 mg PO DIRECTED #6 tab Transmission Status: Pending to [facility] # Referrals: Provider,Referral, MD [Primary Care Provider] - As needed Time of Disposition: 15:59 Medical Decision Making - Smooth Inquiry Pt receiving controlled substance: No Smooth was queried for this patient: No Vital Signs: 09/23/21 15:40 Temperature 98.3 F Temperature Source Oral Pulse Rate [Left Radial] 89 Respiratory Rate 19 Blood Pressure [Left Arm] 133/82 Blood Pressure Mean [Left Arm] 99 Blood Pressure Source [Left Arm] Automatic Cuff Blood Pressure Position [Left Arm] Sitting 02 Sat by Pulse Oximetry 98 Oxygen Delivery Method Room Air Medical Decision Narrative: Patient states that she has taken azithromycin and medrol in the past without complications or reactions [facility] [place] HPI - General Stated complaint: sore throat, diarrhea, h/a, congestion Time Seen by Provider: 09/23/21 15:47 Mode of Arrival: Ambulatory Source of Information: Patient Limitations: No Limitations Description of Symptoms (Recalled from Triage Doc. by RN): C/O sinus symptoms for greater than 2 weeks HEENT Symptoms (Recalled from RN notes): Yes (Sinus pressure) Resp Symptoms (Recalled from RN notes): No Skin Symptoms (Recalled from RN notes): No MS Symptoms (Recalled from RN notes): No Functional Status (Recalled from RN notes): n/a - History of Present Illness Provider Complaint: Patient state that she has been having sinus pain and pressure for over 2 weeks and at times when she blows her nose her mucous is blood tinged States that today she was still having sinus congestion and pressure so she came in to get checked out - Related Data Previous Rx's Medication Instructions Recorded fluconazole 100 mg tablet 100 mg PO DAILY #10 tab 06/23/21 dicyclomine 20 mg tablet 20 mg PO TID PRN #60 tab 07/07/21 Azithromycin [Z-Emanuel 250mg Tab] 250 mg PO DIRECTED #6 tab 09/23/21 methylPREDNISolone [Medrol 4mg 4 mg PO DIRECTED #21 tab 09/23/21 tab] Allergies Allergy/AdvReac Type Severity Reaction Status Date / Time No Known Allergies Allergy Verified 07/07/21 09:21 - Worker's Comp Is this a Worker's Comp case?: No [facility] History - Hepatitis A Screen Drug use history?: No High risk sexual behaviors?: No History of sexually transmitted infection?: No Currently employed?: No Childcare worker?: No Do you have indoor plumbing?: Yes Do you have electricity?: Yes Attestation statement:: This patient has been screened for Hepatitis A risk factors. I have reviewed the patient's past medical history: Yes Medical History: Denies:: Cancer, Diabetes Mellitus Type 1, Diabetes Mellitus Type 2, Internal Pacemaker, MRSA, Seizures Other Medical H
[2021-09-23 16:13] VITALS: BP 133/82; PULSE 89; RESP 19; TEMP 36.8; O2SAT 98
== END 2021-09-23 16:16 | disposition home or self-care (01) ==
PROVIDERS: Emergency Provider Nurse Practitioner
DX: J32.9 Chronic sinusitis, unspecified (principal); Z87.891 Personal history of nicotine dependence
CPT/HCPCS: 99202; G0463

== ENCOUNTER → 2021-11-14 10:27 | Outpatient (CLI) | payer BC, SELFPAY ==
--- NOTE | 2021-11-14 10:38 | XR_ITS ---
FINAL REPORT CLINICAL HISTORY: RT HAND PAIN FINDINGS: RIGHT HAND Three views demonstrate no acute fracture or dislocation. The joint spaces appear normal. The visualized bony structures are well aligned. No soft tissue abnormality is seen. IMPRESSION: No acute process. Reviewed, Interpreted and Dictated by Eliezer Bolaños III, MD Transcribed by Angella Martinez Authenticated by Eliezer Bolaños III, MD on 11/14/2021 12:10:04 PM [facility]
[2021-11-14 11:04] LABS: Basophils % 0.4 % (0.1-2.0); Eosinophils # 0.1 K/mm3 (0.0-0.4); Eosinophils % 1.4 % (0.1-12.0); Hematocrit 38.8 % (37.0-47.0); Hemoglobin 12.9 g/dL (12.2-16.2); Lymphocytes # 2.1 K/mm3 (0.7-4.5); Lymphocytes % 27.4 % (10-50); Mean Corpuscular HGB Conc 33.2 g/dL (31.8-35.4); Mean Corpuscular Hemoglobin 28.8 pg (27.0-31.2); Mean Corpuscular Volume 86.7 fl (81-99); Mean Platelet Volume 7.9 fl (7.4-10.4); Monocytes # 0.4 K/mm3 (0.1-1.0); Monocytes % 5.3 % (1.7-9.3); Neutrophils # 4.9 K/mm3 (1.8-7.8); Neutrophils % 65.5 % (37.0-80.0); Platelet Count 361 K/mm3 (142-424); Red Blood Count 4.48 M/mm3 (4.20-5.40); Red Cell Distribution Width 14.1 % (11.5-17.5); White Blood Count 7.5 K/mm3 (4.8-10.8)
[2021-11-14 11:43] LABS: Alanine Aminotransferase 18 U/L (12-78); Albumin Level 4.3 g/dl (3.5-5.0); Albumin/Globulin Ratio 1.7 (1.1-1.8); Alkaline Phosphatase 71 U/L (38-126); Anion Gap 12.2 mEq/L (5-15); Aspartate Amino Transferase 24 U/L (14-36); Bilirubin,Total 0.5 mg/dl (0.2-1.3); Blood Urea Nitrogen 19 mg/dl (7-17); Calcium 8.6 mg/dl (8.4-10.2); Carbon Dioxide 25 mmol/L (22.0-30.0); Chloride 106 mmol/L (98-107); Estimated Glomerular Filt Rate 73 ml/min (>60); GFR (African American) 88 ML/MIN (>60); Globulin 2.6 g/dL (1.3-3.2); Glucose 92 mg/dl (74-100); Potassium 4.2 mmoL/L (3.5-5.1); Sodium 139 mmol/L (136-145); Total Protein,Serum 6.9 g/dl (6.3-8.2); Uric Acid 4.3 mg/dl (2.5-6.2)
[2021-11-14 11:48] LABS: C-Reactive Protein 6.2 mg/L (0-4)
[2021-11-14 12:16] LABS: Erythrocyte Sedimentation Rate 79 mm/hr (0-20)
== END ==
PROVIDERS: Visit Provider Internal Medicine Rheumatology
DX: M17.11 Unilateral primary osteoarthritis, right knee (principal); M25.50 Pain in unspecified joint; Z68.33 Body mass index [BMI] 33.0-33.9, adult; Z68.36 Body mass index [BMI] 36.0-36.9, adult
CPT/HCPCS: 36415; 73130; 80053; 84550; 85025; 85651; 86140

== ENCOUNTER → 2021-12-04 10:01 | Outpatient (CLI) | payer BC, SELFPAY ==
--- NOTE | 2021-12-04 10:08 | MR_ITS ---
FINAL REPORT CLINICAL HISTORY: BRAIN MASS OR LESION. HEADACHE X2YRS. NO TRAUMA. 17ML PROHANCE GIVEN. COMPARISON: 04/22/2021 FINDINGS: Multiplanar MR imaging of the brain was performed without and with contrast. There is no evidence of intracranial hemorrhage or mass. There are scattered foci of increased signal in the deep white matter bilaterally, particularly in the frontal lobes. Findings are similar to prior but greater than expected for patient's age. No abnormal extra-axial fluid collection is seen. The ventricular size is within normal limits. There is no evidence of shift of the midline structures. The posterior fossa and brainstem have an unremarkable appearance. No area of abnormal restricted diffusion is identified. No abnormal contrast enhancement is seen. There is mild mucoperiosteal thickening in the sphenoid sinus and left maxillary sinus consistent with chronic sinusitis. The seventh and eighth nerve root complexes appear intact. IMPRESSION: Stable deep white matter signal abnormalities which are greater than expected for patient's age. Differential diagnosis would include migraine headaches, vasculitis, or less likely demyelinating process. Reviewed, Interpreted and Dictated by Yanick Ziegler MD Transcribed by Angella Martinez Authenticated by Yanick Ziegler MD on 12/04/2021 02:17:15 PM [facility]
--- NOTE | 2021-12-04 10:37 | MR_ITS ---
FINAL REPORT CLINICAL HISTORY: UNILATERAL PRIMARY OSTEOARTHRITIS, RT KNEE. HX OF KNEE SURGERY FOR TEAR. INSTABILITY AND KNEE SWELLING. COMPARISON: 07/11/2018 FINDINGS: Multi planar MR imaging was performed of the right knee. The anterior and posterior cruciate ligaments are intact. The quadriceps and patellar tendons are intact. The medial and lateral menisci are intact without evidence of tear. The medial and lateral collateral ligaments appear intact. The medial and lateral retinacula appear intact. There is no evidence of osteochondral lesion. There is grade 1 chondromalacia along the undersurface of the lateral articular facet of the patella. There is marrow edema in the anterior intercondylar notch which may be related to mild contusion. No evidence of soft tissue inflammatory reaction. 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 Marrow edema in the anterior intercondylar notch, may be related to mild contusion. Extensive Reviewed, Interpreted and Dictated by Yanick Ziegler MD Transcribed by Angella Martinez Authenticated by Yanick Ziegler MD on 12/04/2021 02:17:22 PM [facility]
== END ==
PROVIDERS: Visit Provider Psychiatry & Neurology Sleep Medicine
DX: G43.709 Chronic migraine without aura, not intractable, without status migrainosus (principal); R93.0 Abnormal findings on diagnostic imaging of skull and head, not elsewhere classified; M17.11 Unilateral primary osteoarthritis, right knee; M25.561 Pain in right knee
CPT/HCPCS: 70553; 73721; A9576

== ENCOUNTER 2022-02-11 11:31 | Emergency (ER) | payer BC, SELFPAY ==
[2022-02-11 12:34] VITALS: BP 124/78; PULSE 82; RESP 18; TEMP 37; O2SAT 100; BMI 34.0
--- NOTE | 2022-02-11 12:37 | HMH.EDUTC ---
[facility] – [place] Disposition Clinical Impression: Viral syndrome Disposition: Home, Self-Care Condition on Discharge: Good Instructions: DI for COVID-19 (Suspected or Confirmed ), Preventing the Spread of Coronavirus Discharge Instructions Additional Instructions: Gargle warm salt water may help with throat irritation and pain Warm tea with honey and lemon may help with throat pain Over the counter Motrin and/or Tylenol may help with fever, pain and bodyaches You was tested for Upper Respiratory Panel with COVID and your results should be available in the next 24-48 hours on the [facility] My [facility] you can view your results there Over the counter Robitussin may help with cough Referrals: Alejandra Cavazos APRN [Primary Care Provider] - As needed Forms: Work/School Release Time of Disposition: 13:04 Medical Decision Making - Smooth Inquiry Pt receiving controlled substance: No Smooth was queried for this patient: No Vital Signs: 02/11/22 12:34 Temperature 98.6 F Temperature Source Oral Pulse Rate [Left Radial] 82 Respiratory Rate 18 Blood Pressure [Right Arm] 124/78 Blood Pressure Mean [Right Arm] 93 Blood Pressure Source [Right Arm] Automatic Cuff Blood Pressure Position [Right Arm] Sitting 02 Sat by Pulse Oximetry 100 Oxygen Delivery Method Room Air - Lab Data Lab results reviewed: Yes: I reviewed the patient's lab results. Lab Results 02/11/22 12:30: Group A Strep Rapid Negative Orders (Tests/Meds): ORDERS Category Date Time Status Covid-19 Nasal PCR ([facility]) Routine Lab 02/11/22 12:30 Received Upper Respiratory Panel, PCR Stat Lab 02/11/22 12:34 Ordered Strep Screen Confirmation Stat Micro 02/11/22 12:30 Received [facility] HPI - General Stated complaint: covid test and sore throat Time Seen by Provider: 02/11/22 12:37 Mode of Arrival: Ambulatory Source of Information: Patient Limitations: No Limitations Description of Symptoms (Recalled from Triage Doc. by RN): c/o sore throat, chest congestion, cough for one week HEENT Symptoms (Recalled from RN notes): Yes Resp Symptoms (Recalled from RN notes): No Skin Symptoms (Recalled from RN notes): No MS Symptoms (Recalled from RN notes): No Functional Status (Recalled from RN notes): na - History of Present Illness Provider Complaint: Patient states that she recently took a trip to [place] and one the people that went tested positive for COVID States that for the last week she has been having sore throat, cough and feels like she may have a little congestion in her chest but not coughing anything up nor having SOA states that she feels like she may have strep since her son had it last week - Related Data Previous Rx's Medication Instructions Recorded fluconazole 100 mg tablet 100 mg PO DAILY #10 tab 06/23/21 dicyclomine 20 mg tablet 20 mg PO TID PRN #60 tab 07/07/21 Azithromycin [Z-Emanuel 250mg Tab] 250 mg PO DIRECTED #6 tab 09/23/21 methylPREDNISolone [Medrol 4mg 4 mg PO DIRECTED #21 tab 09/23/21 tab] Allergies Allergy/AdvReac Type Severity Reaction Status Date / Time No Known Allergies Allergy Verified 07/07/21 09:21 - Worker's Comp Is this a Worker's Comp case?: No [facility] History - Hepatitis A Screen Attestation statement:: This patient has been screened for Hepatitis A risk factors. I have reviewed the patient's past medical history: Yes Medical History: Denies:: Cancer, Diabetes Mellitus Type 1, Diabetes Mellitus Type 2, Internal Pacemaker, MRSA, Seizures Other Medical History: Reports: Arthritis. Denies: Blood Transfusion Reaction Laterality Cases: Bilateral: Carpal Tunnel Release Other Surgeries: Yes: Colonoscopy, , Dilation and Curettage, Tubal Ligation, Other. No: Pacemaker Amputation: No Fractures: No Comment: Cyst removal - Social History Smoking Status: Former smoker Tobacco Type: cigarettes # Packs/Day (cigarettes): 1 #Yrs smoked (if former smoker): 6 Alcohol Intake: never Substance Use
[2022-02-11 12:57] LABS: Strep Scrn Group A (Rapid) Negative (Negative)
[2022-02-11 13:17] VITALS: BP 124/78; PULSE 82; RESP 18; TEMP 37; O2SAT 100
[2022-02-11 14:09] LABS: Adenovirus,PCR Not Detected (NotDetected); Bordetella Pertussis Not Detected (NotDetected); Chlamydophila Pneumoniae, PCR Not Detected (NotDetected); Coronavirus 229E Not Detected (NotDetected); Coronavirus NL63 Not Detected (NotDetected); Coronavirus OC43 Not Detected (NotDetected); Coronovirus HKU1,PCR Not Detected (NotDetected); Human Metapneumovirus Not Detected (NotDetected); Influenza A, PCR Not Detected (NotDetected); Influenza AH1, 2009 Not Detected (NotDetected); Influenza AH1, PCR Not Detected (NotDetected); Influenza AH3,PCR Not Detected (NotDetected); Influenza B, PCR Not Detected (NotDetected); Mycoplasma Pneumoniae, PCR Not Detected (NotDetected); Parainfluenza 1, PCR Not Detected (NotDetected); Parainfluenza 2, PCR Not Detected (NotDetected); Parainfluenza 3, PCR Not Detected (NotDetected); Parainfluenza 4, PCR Not Detected (NotDetected); Respiratory Syncytial Virus Not Detected (NotDetected); Rhinovirus/Enterovirus Not Detected (NotDetected)
== END 2022-02-11 13:17 | disposition home or self-care (01) ==
PROVIDERS: Emergency Provider Nurse Practitioner; PCP Nurse Practitioner Family
DX: B34.9 Viral infection, unspecified (principal); Z87.891 Personal history of nicotine dependence; J02.9 Acute pharyngitis, unspecified
CPT/HCPCS: 87430; 87486; 87581; 87632; 87798; 99213; C9803; G0463; U0003; U0005

== ENCOUNTER → 2022-03-09 15:09 | Outpatient (CLI) | payer BC, SELFPAY ==
--- NOTE | 2022-03-09 15:12 | MR_ITS ---
FINAL REPORT CLINICAL HISTORY: RIGHT KNEE PAIN. Right knee surgery 1year ago. fell on knee 1.5months ago and entire knee pain with swelling. knee instability. COMPARISON: December 04, 2021 FINDINGS: Multiplanar MR imaging of the right knee was performed without contrast. The medial and lateral menisci are intact without evidence of meniscal tear. The anterior and posterior cruciate ligaments are intact. The medial collateral ligament and lateral ligamentous complex are intact. There is proximal patellar tendinitis. The quadriceps tendon is intact. There is no evidence of fracture. There is mild patellofemoral chondromalacia. A small joint effusion is seen. The musculature is intact. No soft tissue mass or cyst is identified. IMPRESSION: Proximal patellar tendinitis. Mild patellofemoral chondromalacia. Small joint effusion. No fracture. Reviewed, Interpreted and Dictated by Eliezer Bolaños III, MD Transcribed by Jose Alfredo Michaud Authenticated and [facility]
== END ==
PROVIDERS: Visit Provider Orthopaedic Surgery
DX: M25.561 Pain in right knee (principal)
CPT/HCPCS: 73721

== ENCOUNTER 2022-03-23 15:36 | Emergency (ER) | payer BC, SELFPAY ==
--- NOTE | 2022-03-23 15:53 | XR_ITS ---
FINAL REPORT CLINICAL HISTORY: pain/injury/ injured on slip and slide with kids FINDINGS: LEFT KNEE: 4 views of the left knee obtained. There is no acute fracture or dislocation. The joint spaces are intact.. There is no soft tissue abnormality. IMPRESSION: No acute fracture Reviewed, Interpreted and Dictated by Yanick Ziegler MD Transcribed by Faith Kirkpatrick Authenticated and [facility]
[2022-03-23 15:56] VITALS: BP 106/65; PULSE 58; RESP 16; TEMP 36.7; O2SAT 97; BMI 36.3
--- NOTE | 2022-03-23 16:27 | HMH.EDUTC ---
[facility] [place] Disposition Clinical Impression: Strain of knee Qualifiers: Encounter type: initial encounter Laterality: left Qualified Code(s): S86.912A - Strain of unspecified muscle(s) and tendon(s) at lower leg level, left leg, initial encounter Disposition: Home, Self-Care Condition on Discharge: Good Instructions: Knee Sprain, DI for Knee Sprain, How To Perform RICE (Rest, Ice, Compress, Elevate) Additional Instructions: *weight bearing as tolerated *RICE, Rest the extremity, Ice 15-20 minutes 3-4 times daily, Compress- wear the maury wrap as discussed as much as possible to help reduce swelling and pain, Elevate the extremity when at rest *Knee immobilizer is for support and help control swelling, use it except in the shower. Be sure that is not to tight but not to loose either *Elevate when resting *Ibuprofen 600-800mg every 6-8 hours as needed for pain an inflammation. If need something more can take Tylenol in between doses of Ibuprofen to help Immediately follow up with your family doctor for new or worsening of symptoms, or no noticeable improvement over the next 3-5 days Follow up with your Family Doctor or Orthopedics if no improvement or any worsening of symptoms Referrals: Alejandra Cavazos APRN [Primary Care Provider] - As needed Time of Disposition: 16:33 Medical Decision Making - Smooth Inquiry Pt receiving controlled substance: No Smooth was queried for this patient: No Vital Signs: 03/23/22 15:56 Temperature 98.0 F Temperature Source Oral Pulse Rate [Left] 58 L Respiratory Rate 16 Blood Pressure [Right Arm] 106/65 L Blood Pressure Mean [Right Arm] 78 02 Sat by Pulse Oximetry 97 - Radiology Data #1 Image(s): Knee Image Reviewed: Yes I reviewed the patient's radiology image Preliminary Findings: No Fracture Seen [facility] [place] HPI - General Stated complaint: AO 03/19 fell knee pain Time Seen by Provider: 03/23/22 16:15 Description of Symptoms (Recalled from Triage Doc. by RN): patient comes in with left knee pain. patient was on a slip and slide 03/19/22, and fell. HEENT Symptoms (Recalled from RN notes): No Resp Symptoms (Recalled from RN notes): No Skin Symptoms (Recalled from RN notes): No MS Symptoms (Recalled from RN notes): Yes Functional Status (Recalled from RN notes): n/a - History of Present Illness Provider Complaint: Patient statse that she was playing on slip and slide last week on 03/19 when she fell several times and once her leg went back States that the next day she woke up and she was having pain in her left knee and in the back of her knee State that she has continued to have pain when she moves it certain ways so today she came in to get it checked - Related Data Home Medications Medication Instructions Recorded Confirmed Adalimumab [Humira Pen 40 mg IM NEEDED PRN 03/23/22 03/23/22 [id number] Hs] Celecoxib [Celebrex 200mg cap] 200 mg PO DAILY 03/23/22 03/23/22 Fremanezumab-Vfrm [Ajovy 225 mg IM DAILY 03/23/22 03/23/22 Autoinjector] cloNIDine HCL [cloNIDine 0.1mg 0.1 mg PO NEEDED PRN 03/23/22 03/23/22 Tablet] Allergies Allergy/AdvReac Type Severity Reaction Status Date / Time No Known Allergies Allergy Verified 03/23/22 15:58 - Worker's Comp Is this a Worker's Comp case?: No [facility] History - Hepatitis A Screen Attestation statement:: This patient has been screened for Hepatitis A risk factors. I have reviewed the patient's past medical history: Yes Medical History: Denies:: Cancer, Diabetes Mellitus Type 1, Diabetes Mellitus Type 2, Internal Pacemaker, MRSA, Seizures Other Medical History: Reports: Arthritis. Denies: Blood Transfusion Reaction Laterality Cases: Bilateral: Carpal Tunnel Release Other Surgeries: Yes: Colonoscopy, , Dilation and Curettage, Tubal Ligation, Other. No: Pacemaker Amputation: No Fractures: No Comment: Cyst removal - Social History Smoking Status: Former smoker Tobacco Type: cigarettes # Packs/Day (
[2022-03-23 16:52] VITALS: BP 106/65; PULSE 58; RESP 16; TEMP 36.7
== END 2022-03-23 16:56 | disposition home or self-care (01) ==
PROVIDERS: Emergency Provider Nurse Practitioner; PCP Nurse Practitioner Family
DX: S86.912A Strain of unspecified muscle(s) and tendon(s) at lower leg level, left leg, initial encounter (principal); W18.39XA Other fall on same level, initial encounter; Y93.89 Activity, other specified
CPT/HCPCS: 73562; 99212; G0463

== ENCOUNTER 2023-11-18 21:31 | Emergency (ER) | payer BC, SELFPAY ==
[2023-11-18] VITALS (8 sets, daily range): BP systolic 106–149; BP diastolic 76–89; PULSE 92–118; RESP 15–17; TEMP 36.7–36.8; O2SAT 98–100; BMI 38.3
--- NOTE | 2023-11-18 22:04 | CT_ITS ---
PROCEDURE INFORMATION: Exam: CTA Abdomen and Pelvis With Contrast Exam date and time: 11/18/2023 11:16 PM Age: 33 years old Clinical indication: Abdominal pain; Acute; Additional info: Gi bleed, bright red blood TECHNIQUE: Imaging protocol: Computed tomographic angiography of the abdomen and pelvis with contrast. Exam focused on the arteries. 3D rendering (Not supervised by radiologist): MIP and/or 3D reconstructed images were created by the technologist. Radiation optimization: All CT scans at this facility use at least one of these dose optimization techniques: automated exposure control; mA and/or kV adjustment per patient size (includes targeted exams where dose is matched to clinical indication); or iterative reconstruction. Contrast material: ISOVUE; Contrast volume: 100 ml; Contrast route: INTRAVENOUS (IV); COMPARISON: 1. CT ABDOMEN PELVIS WO CON 06/30/2021 9:[address] ABDOMEN PELVIS W CON 09/08/2019 9:34 AM 3. CR XR ABDOMEN MIN 2V 07/03/2021 9:28 PM FINDINGS: Aorta: No aortic aneurysm. No aortic dissection. Celiac trunk and mesenteric arteries: The SMA arises from the celiac axis, a normal variant. Renal arteries: No occlusion or significant stenosis. Right iliac arteries: No occlusion or significant stenosis. Left iliac arteries: No occlusion or significant stenosis. Liver: No mass. Gallbladder and bile ducts: Unremarkable. No calcified stones. No ductal dilation. Pancreas: Unremarkable. No mass. No ductal dilation. Spleen: Unremarkable. No splenomegaly. Adrenal glands: Unremarkable. No mass. Kidneys and ureters: Unremarkable. No solid mass. No hydronephrosis. Stomach and bowel: There is large volume stool throughout the colon. Appendix: No evidence of appendicitis. Intraperitoneal space: Unremarkable. No free air. No significant fluid collection. Lymph nodes: Unremarkable. No enlarged lymph nodes. Urinary bladder: Unremarkable. No mass. Reproductive: 2 cm right adnexal cystic lesion, possibly dominant follicle. Bones/joints: No acute fracture. Soft tissues: There are postsurgical changes of the ventral abdominal wall. There is a small fat containing umbilical hernia. IMPRESSION: 1. At the time of imaging, no active vascular extravasation was observed. It is recommended to correlate with clinical findings for comprehensive assessment. 2. No acute inflammatory or obstructive process is identified. Incidental findings are described within the findings section.
[2023-11-18 22:08] LABS: Microscopic, Urine URINE MICROSCOPIC (MICROSCOPIC)
[2023-11-18 22:10] LABS: Appearance,Urine SL CLOUDY (Clear); Bilirubin,Urine Negative (Negative); Blood, Urine Negative (Negative); Color,Urine YELLOW (Yellow); Glucose,Urine (UA) Negative (Negative); Ketones,Urine TRACE (Negative); Leukocyte Esterase,Urine Negative (Negative); Nitrate,Urine Negative (Negative); Protein,Urine Negative (Negative); Specific Gravity, Urine 1.025 (1.005-1.030); Urobilinogen,Urine 0.2 EU/dl (0.2)
[2023-11-18] MEDS: LACTATED RINGERS 1000ML 1,000 ML 999 ML IV (22:19)
[2023-11-18] MEDS: KETOROLAC 30MG/ML VIAL 15 MG IV (22:19)
--- NOTE | 2023-11-18 22:32 | ED_ITS ---
Discharge Plan Disposition Patient Disposition: Home, Self-Care Prescriptions Prescriptions: No Action Nurtec ODT 75 mg tablet,disintegrating 75 mg PO Q OTHER DAY zolpidem [Ambien] 5 mg tablet 5 mg PO HS Rx Instructions: may repeat once if no response in 30-60 minutes dextroamphetamine-amphetamine [Adderall] 20 mg tablet 20 mg PO BID Rx Instructions: administer doses at least 4-6 hours apart clonidine HCl 0.1 MG tablet 0.1 mg PO NEEDED PRN (Reason: Anxiety) fremanezumab-vfrm 225 MG/1.5 ML auto-injector 225 mg IM DAILY Referrals Follow up/Referrals: Tae Feliciano MD [Primary Care Provider] - See instructions Activity Restrictions/Add. Instructions Additional Instructions/Restrictions: Please follow-up with your primary care provider and with a GI provider. Please return to the emergency department if you develop any new or worsening symptoms or become concerned for your health. Clinical Impressions Clinical Impression: Hematochezia Discharge ED Provider: Casey Manzanares General Adult HPI <Casey Manzanares MD - Last Filed: 11/18/23 22:56> General Chief complaint: Recheck/Abnormal Lab/Rx Stated complaint: rectal bleeding Time Seen by Provider: 11/18/23 21:45 Mode of Arrival: Ambulatory Source of Information: Patient Limitations: No Limitations Description of Symptoms (Recalled from ER Triage Doc. by RN): patient ambulatory to ED with complaints of rectal bleeding x 2 days. Patient reports that she has a colonoscopy for similar issue in Aug. Reports bright red bleeding when having bowel movement, known hemorrhoids present. Becomes lightheaded when having a bowel movement and straining. History of Present Illness HPI narrative: 33-year-old female with history of intermittent hematochezia presenting with abdominal cramping and bright red blood per rectum states that she recently had follow-up with GI in August for colonoscopy. They were unable to find anything that was causing her bleeding per rectum. She has not had any bleeding since that time until yesterday. She states that she has known hemorrhoids, however this was different. Hemorrhoid bleeding has small amounts of blood. Today, she had large blood clots, large, cathartic, bright red bowel movements with dark red clots. Denies abdominal pain, but has crampy bilateral flank pain. No fevers or chills, weight loss, night sweats, urinary symptoms, abnormal vaginal discharge or bleeding, vomiting, family history of GI disorders, or any other concerns. Related Data Home Medications Medication Instructions Recorded Confirmed clonidine HCl 0.1 mg tablet 0.1 mg PO NEEDED PRN Anxiety 03/23/22 03/23/22 fremanezumab-vfrm 225 mg/1.5 mL 225 mg IM DAILY Headache 03/23/22 06/25/23 subcutaneous auto-injector dextroamphetamine-amphetamine 20 20 mg PO BID 06/25/23 06/25/23 mg tablet (Adderall) rimegepant 75 mg disintegrating 75 mg PO Q OTHER DAY 06/25/23 06/25/23 tablet (Nurtec ODT) zolpidem 5 mg tablet (Ambien) 5 mg PO HS 06/25/23 06/25/23 Allergies Allergy/AdvReac Type Severity Reaction Status Date / Time No Known Allergies Allergy Verified 06/25/23 11:28 PFS <Casey Manzanares MD - Last Filed: 11/18/23 22:56> [facility] Disclaimer: The information contained in this section may have been updated after the patient was seen, as this information can be updated by other users. Medical History Acute carpal tunnel syndrome bilateral Adenomatous polyp of cervix Surgical History H/O tubal ligation History of removal of cyst X 4 History of right knee surgery [place] teeth removed Family History Other Anemia Asthma Diabetes Heart attack Hyperlipidemia Hypertension Stroke Thyroid disorder Tuberculosis Social History Smoking Status: Never smoker alcohol intake: never substance use type: denies use current occupational status: unemployed Travel in the last 8 weeks: None household members: spouse housing: house current occupational exposures/hazards: No caffeine: Yes <Casey Manzanares MD - Last Filed: 11/18/23 22:56> ROS Obtained: Yes All systems reviewed & no additional complaints except as documented Physical Exam <Casey Manzanares MD - Last Filed: 11/18/23 22:56> General General appearance: alert and in no apparent distress Head Head exam: atraumatic and normocephalic Eye Eye exam: Present normal appearance, PERRL and EOMI ENT ENT exam: Present mucous membranes moist Neck Neck exam: Present normal inspection, full ROM and trachea midline Respiratory Respiratory exam: Present normal lung sounds bilaterally; Absent respiratory distress, wheezes, stridor, accessory muscle use or prolonged expiratory phase Cardiovascular Cardiovascular exam: Present normal rhythm and tachycardia Abdominal Exam Abdominal exam: Present soft; Absent distention, tenderness, guarding, rebound or rigidity Extremities Exam Extremities exam: Absent edema Neurological Exam Neurological exam: Present alert, oriented X3, CN II-XII intact and normal gait; Absent motor sensory deficit Skin Skin exam: Present warm and dry; Absent diaphoresis or erythema Medical Decision Making <Casey Manzanares MD - Last Filed: 11/18/23 22:56> Medical Records Medical records reviewed: Yes I reviewed the patient's medical records. Smooth Inquiry Pt receiving controlled substance: No Smooth was queried for this patient: No Vital Signs: 11/18/23 21:33 11/18/23 21:41 11/18/23 22:00 Temperature 98.2 F Temperature Source Oral Pulse Rate 109 H 102 H Pulse Rate [Left] 118 H Respiratory Rate 17 Blood Pressure 136/82 149/89 H Blood Pressure [Right Arm] 136/82 Blood Pressure Mean 99 Blood Pressure Mean [Right Arm] 100 Blood Pressure Source [Right Arm] Automatic Cuff Blood Pressure Position [Right Arm] 02 Sat by Pulse Oximetry 99 98 98 Oxygen Delivery Method Room Air 11/18/23 22:15 11/18/23 22:30 11/18/23 23:00 Temperature 98.1 F Temperature Source Oral Pulse Rate 92 H 94 H Pulse Rate [Left] 96 H Respiratory Rate 15 Blood Pressure 106/76 L 109/77 L Blood Pressure [Right Arm] 149/89 H Blood Pressure Mean 86 88 Blood Pressure Mean [Right Arm] 109 Blood Pressure Source [Right Arm] Blood Pressure Position [Right Arm] 02 Sat by Pulse Oximetry 99 100 100 Oxygen Delivery Method Room Air Room Air 11/18/23 23:30 11/18/23 23:39 11/19/23 00:00 Temperature Temperature Source Pulse Rate 92 H 96 H Pulse Rate [Left] 92 H Respiratory Rate 15 Blood Pressure 111/76 111/72 Blood Pressure [Right Arm] 111/76 Blood Pressure Mean 90 Blood Pressure Mean [Right Arm] 87 Blood Pressure Source [Right Arm] Automatic Cuff Blood Pressure Position [Right Arm] Sitting 02 Sat by Pulse Oximetry 100 100 99 Oxygen Delivery Method Room Air 11/19/23 00:30 11/19/23 00:47 Temperature 98.2 F Temperature Source Oral Pulse Rate 91 H 91 H Pulse Rate [Left] Respiratory Rate 16 Blood Pressure 114/78 114/78 Blood Pressure [Right Arm] Blood Pressure Mean Blood Pressure Mean [Right Arm] Blood Pressure Source [Right Arm] Blood Pressure Position [Right Arm] 02 Sat by Pulse Oximetry 99 Oxygen Delivery Method Lab Data Lab Results 11/18/23 21:42: Urine Color Yellow, Urine Appearance Sl cloudy, Urine pH 6.0, Ur Specific [place] 1.025, Urine Protein Negative, Urine Glucose (UA) Negative, Urine Ketones Trace, Urine Blood Negative, Urine Nitrate Negative, Urine Bilirubin Negative, Urine Urobilinogen 0.2, Ur Leukocyte Esterase Negative, Urine RBC None, Urine WBC Occasional, Ur Squamous Epith Cells 5-10, Urine Bacteria None 11/18/23 22:30: WBC 12.3 H, RBC 4.63, Hgb 13.4, Hct 41.3, MCV 89.1, MCH 28.9, MCHC 32.4, RDW 13.7, Plt Count 359, MPV 7.2 L, Neut % (Auto) 66.6, Lymph % (Auto) 25.9, [place] % (Auto) 5.0, Eos % (Auto) 1.9, Baso % (Auto) 0.6, Neut # (Auto) 8.2 H, Lymph # (Auto) 3.2, [place] # (Auto) 0.6, Eos # (Auto) 0.2, Baso # (Auto) 0.1, ESR 22 H, Sodium 137, Potassium 4.1, Chloride 105, Carbon Dioxide 27, Anion Gap 9.1, BUN 12, Creatinine 0.90, Estimated Creat Clear 121, Estimated GFR 72, Est GFR ( Amer) 87, Glucose 101 H, Calcium 8.7, Total Bilirubin 0.2, AST 28, ALT 23, Alkaline Phosphatase 109, C-Reactive Protein 6.2 H, Total Protein 7.0, Albumin 4.1, Globulin 2.9, Albumin/Globulin Ratio 1.4, Lipase 55, HCG, Quant < 2 11/18/23 22:30 11/18/23 22:30 Orders (Tests/Meds): ED MEDICATIONS Discontinued Medications Generic Name Dose Route Start Last Admin Trade Name Pascale PRN Reason Stop Dose Admin Amoxicillin/Clavulanate Potassium 1 each 11/19/23 00:24 11/19/23 00:34 Amoxicillin/Clavulanate Potassium 875/125mg Tablet PO 11/19/23 00:25 Not Given ONCE ONE Lactated Ringer's 1,000 mls @ 999 mls/hr 11/18/23 22:02 11/18/23 22:19 Lactated Ringer's 1000 Ml Bag IV 11/18/23 23:02 999 mls/hr .Q1H1M ONE Administration Iopamidol 100 ml 11/18/23 23:22 Iopamidol-370 (76%);100ml Bottle IV 11/18/23 23:23 ONCE ONE Ketorolac Tromethamine 15 mg 11/18/23 22:02 11/18/23 22:19 Ketorolac 30mg/Ml Vial IV 11/18/23 22:03 15 mg ONCE ONE Administration Sodium Chloride 10 ml 11/18/23 23:22 Sodium Chloride 0.9% 10ml Syr (Rad Only) IV 11/18/23 23:23 ONCE ONE ORDERS Category Date Time Status CT angio abdomen pelvis Stat Cat Scan 11/18/23 22:04 Completed CRP [C-Reactive Protein] Stat Lab 11/18/23 22:30 Completed Complete Blood Count Auto Diff Stat Lab 11/18/23 22:30 Completed Comprehensive Metabolic Panel Stat Lab 11/18/23 22:30 Completed ESR [Erythrocyte Sedimentation Rate] Stat Lab 11/18/23 22:30 Completed HCG,Quantitative Stat Lab 11/18/23 22:30 Completed Lipase Stat Lab 11/18/23 22:30 Completed Urinalysis and Microscopic Stat Lab 11/18/23 21:42 Completed Medical Decision Narrative: 33-year-old female with history of intermittent hematochezia presenting with abdominal cramping and bright red blood per rectum states that she recently had follow-up with GI in August for colonoscopy. They were unable to find anything that was causing her bleeding per rectum. She has not had any bleeding since that time until yesterday. She states that she has known hemorrhoids, however this was different. Hemorrhoid bleeding has small amounts of blood. Today, she had large blood clots, large, cathartic, bright red bowel movements with dark red clots. Denies abdominal pain, but has crampy bilateral flank pain. No fevers or chills, weight loss, night sweats, urinary symptoms, abnormal vaginal discharge or bleeding, vomiting, family history of GI disorders, or any other concerns. History was obtained via conversation with patient. On arrival, patient hemodynamically stable, alert, oriented x4, appropriate, GCS 15, moving all extremities spontaneously, pupils equal and reactive to light. Full physical exam performed and significant for well-appearing woman in no acute distress. No abdominal tenderness, no abdominal distention, or signs of peritonitis. No overlying skin changes. Mild left flank tenderness without right flank tenderness. Genitourinary and rectal exam deferred at this time given obvious hematochezia with known history of hemorrhoids without acute rectal pain. Differential includes internal hemorrhoid, diverticulosis, IBD, polyp, among others. Patient was given fluid bolus 1000 mL for symptomatic management and correction of underlying abnormalities. Workup independently interpreted and significant for hemoglobin 13.4. ESR elevated at 79, CRP elevated 6.2. Lipase negative, urinalysis without concern for UTI. CTA of the abdomen pelvis was pending at time of handoff to oncoming physician. <Pj Cortez MD - Last Filed: 11/19/23 02:06> Vital Signs: 11/18/23 21:33 11/18/23 21:41 11/18/23 22:00 Temperature 98.2 F Temperature Source Oral Pulse Rate 109 H 102 H Pulse Rate [Left] 118 H Respiratory Rate 17 Blood Pressure 136/82 149/89 H Blood Pressure [Right Arm] 136/82 Blood Pressure Mean 99 Blood Pressure Mean [Right Arm] 100 Blood Pressure Source [Right Arm] Automatic Cuff Blood Pressure Position [Right Arm] 02 Sat by Pulse Oximetry 99 98 98 Oxygen Delivery Method Room Air 11/18/23 22:15 11/18/23 22:30 11/18/23 23:00 Temperature 98.1 F Temperature Source Oral Pulse Rate 92 H 94 H Pulse Rate [Left] 96 H Respiratory Rate 15 Blood Pressure 106/76 L 109/77 L Blood Pressure [Right Arm] 149/89 H Blood Pressure Mean 86 88 Blood Pressure Mean [Right Arm] 109 Blood Pressure Source [Right Arm] Blood Pressure Position [Right Arm] 02 Sat by Pulse Oximetry 99 100 100 Oxygen Delivery Method Room Air Room Air 11/18/23 23:30 11/18/23 23:39 11/19/23 00:00 Temperature Temperature Source Pulse Rate 92 H 96 H Pulse Rate [Left] 92 H Respiratory Rate 15 Blood Pressure 111/76 111/72 Blood Pressure [Right Arm] 111/76 Blood Pressure Mean 90 Blood Pressure Mean [Right Arm] 87 Blood Pressure Source [Right Arm] Automatic Cuff Blood Pressure Position [Right Arm] Sitting 02 Sat by Pulse Oximetry 100 100 99 Oxygen Delivery Method Room Air 11/19/23 00:30 11/19/23 00:47 Temperature 98.2 F Temperature Source Oral Pulse Rate 91 H 91 H Pulse Rate [Left] Respiratory Rate 16 Blood Pressure 114/78 114/78 Blood Pressure [Right Arm] Blood Pressure Mean Blood Pressure Mean [Right Arm] Blood Pressure Source [Right Arm] Blood Pressure Position [Right Arm] 02 Sat by Pulse Oximetry 99 Oxygen Delivery Method Lab Data Lab Results 11/18/23 21:42: Urine Color Yellow, Urine Appearance Sl cloudy, Urine pH 6.0, Ur Specific [place] 1.025, Urine Protein Negative, Urine Glucose (UA) Negative, Urine Ketones Trace, Urine Blood Negative, Urine Nitrate Negative, Urine Bilirubin Negative, Urine Urobilinogen 0.2, Ur Leukocyte Esterase Negative, Urine RBC None, Urine WBC Occasional, Ur Squamous Epith Cells 5-10, Urine Bacteria None 11/18/23 22:30: WBC 12.3 H, RBC 4.63, Hgb 13.4, Hct 41.3, MCV 89.1, MCH 28.9, MCHC 32.4, RDW 13.7, Plt Count 359, MPV 7.2 L, Neut % (Auto) 66.6, Lymph % (Auto) 25.9, [place] % (Auto) 5.0, Eos % (Auto) 1.9, Baso % (Auto) 0.6, Neut # (Auto) 8.2 H, Lymph # (Auto) 3.2, [place] # (Auto) 0.6, Eos # (Auto) 0.2, Baso # (Auto) 0.1, ESR 22 H, Sodium 137, Potassium 4.1, Chloride 105, Carbon Dioxide 27, Anion Gap 9.1, BUN 12, Creatinine 0.90, Estimated Creat Clear 121, Estimated GFR 72, Est GFR ( Amer) 87, Glucose 101 H, Calcium 8.7, Total Bilirubin 0.2, AST 28, ALT 23, Alkaline Phosphatase 109, C-Reactive Protein 6.2 H, Total Protein 7.0, Albumin 4.1, Globulin 2.9, Albumin/Globulin Ratio 1.4, Lipase 55, HCG, Quant < 2 Orders (Tests/Meds): ED MEDICATIONS Discontinued Medications Generic Name Dose Route Start Last Admin Trade Name Freq PRN Reason Stop Dose Admin Amoxicillin/Clavulanate Potassium 1 each 11/19/23 00:24 11/19/23 00:34 Amoxicillin/Clavulanate Potassium 875/125mg Tablet PO 11/19/23 00:25 Not Given ONCE ONE Lactated Ringer's 1,000 mls @ 999 mls/hr 11/18/23 22:02 11/18/23 22:19 Lactated Ringer's 1000 Ml Bag IV 11/18/23 23:02 999 mls/hr .Q1H1M ONE Administration Iopamidol 100 ml 11/18/23 23:22 Iopamidol-370 (76%);100ml Bottle IV 11/18/23 23:23 ONCE ONE Ketorolac Tromethamine 15 mg 11/18/23 22:02 11/18/23 22:19 Ketorolac 30mg/Ml Vial IV 11/18/23 22:03 15 mg ONCE ONE Administration Sodium Chloride 10 ml 11/18/23 23:22 Sodium Chloride 0.9% 10ml Syr (Rad Only) IV 11/18/23 23:23 ONCE ONE ORDERS Category Date Time Status CT angio abdomen pelvis Stat Cat Scan 11/18/23 22:04 Completed CRP [C-Reactive Protein] Stat Lab 11/18/23 22:30 Completed Complete Blood Count Auto Diff Stat Lab 11/18/23 22:30 Completed Comprehensive Metabolic Panel Stat Lab 11/18/23 22:30 Completed ESR [Erythrocyte Sedimentation Rate] Stat Lab 11/18/23 22:30 Completed HCG,Quantitative Stat Lab 11/18/23 22:30 Completed Lipase Stat Lab 11/18/23 22:30 Completed Urinalysis and Microscopic Stat Lab 11/18/23 21:42 Completed Medical Decision Narrative: 33-year-old female with history of intermittent hematochezia presenting with abdominal cramping and bright red blood per rectum states that she recently had follow-up with GI in August for colonoscopy. They were unable to find anything that was causing her bleeding per rectum. She has not had any bleeding since that time until yesterday. She states that she has known hemorrhoids, however this was different. Hemorrhoid bleeding has small amounts of blood. Today, she had large blood clots, large, cathartic, bright red bowel movements with dark red clots. Denies abdominal pain, but has crampy bilateral flank pain. No fevers or chills, weight loss, night sweats, urinary symptoms, abnormal vaginal discharge or bleeding, vomiting, family history of GI disorders, or any other concerns. History was obtained via conversation with patient. On arrival, patient hemodynamically stable, alert, oriented x4, appropriate, GCS 15, moving all extremities spontaneously, pupils equal and reactive to light. Full physical exam performed and significant for well-appearing woman in no acute distress. No abdominal tenderness, no abdominal distention, or signs of peritonitis. No overlying skin changes. Mild left flank tenderness without right flank tenderness. Genitourinary and rectal exam deferred at this time given obvious hematochezia with known history of hemorrhoids without acute rectal pain. Differential includes internal hemorrhoid, diverticulosis, IBD, polyp, among others. Patient was given fluid bolus 1000 mL for symptomatic management and correction of underlying abnormalities. Workup independently interpreted and significant for hemoglobin 13.4. ESR elevated at 79, CRP elevated 6.2. Lipase negative, urinalysis without concern for UTI. CTA of the abdomen pelvis was pending at time of handoff to oncoming physician. On reassessment patient suman hemodynamically stable. CT imaging interpreted by me and shows no evidence of acute GI bleeding, inflammation, or any other acute pathology. Extensive discussion of patient regarding her presentation. No evidence of hemodynamically significant or active bleeding at this time. Discussed with her the results of her CT scan. Recommend she follow-up with her GI team. Recommend she return if bleeding continues/worsens. Critical Care <Casey Manzanares MD - Last Filed: 11/18/23 22:56> Critical Care Time Critical Care Time: No
[2023-11-18 22:35] LABS: WBC,Urine Occasional #/hpf (0-3)
[2023-11-18 22:40] LABS: Basophils # 0.1 K/mm3 (0-0.2); Basophils % 0.6 % (0.1-2.0); Chloride 105 mmol/L (98-107); Eosinophils # 0.2 K/mm3 (0.0-0.4); Eosinophils % 1.9 % (0.1-12.0); Hematocrit 41.3 % (37.0-47.0); Hemoglobin 13.4 g/dL (12.2-16.2); Lymphocytes # 3.2 K/mm3 (0.7-4.5); Lymphocytes % 25.9 % (10-50); Mean Corpuscular HGB Conc 32.4 g/dL (31.8-35.4); Mean Corpuscular Hemoglobin 28.9 pg (27.0-31.2); Mean Corpuscular Volume 89.1 fl (81-99); Mean Platelet Volume 7.2 fl (7.4-10.4); Monocytes # 0.6 K/mm3 (0.1-1.0); Neutrophils # 8.2 K/mm3 (1.8-7.8); Neutrophils % 66.6 % (37.0-80.0); Platelet Count 359 K/mm3 (142-424); Potassium 4.1 mmoL/L (3.5-5.1); Red Blood Count 4.63 M/mm3 (4.20-5.40); Red Cell Distribution Width 13.7 % (11.5-17.5); Sodium 137 mmol/L (136-145); White Blood Count 12.3 K/mm3 (4.8-10.8)
[2023-11-18 22:42] LABS: Alanine Aminotransferase 23 U/L (12-78); Alkaline Phosphatase 109 U/L (38-126); Aspartate Amino Transferase 28 U/L (14-36); Bilirubin,Total 0.2 mg/dl (0.2-1.3); Blood Urea Nitrogen 12 mg/dl (7-17); Creatinine Clearance Estimated 121 mL/min (50-200); Estimated Glomerular Filt Rate 72 ml/min (>60); GFR (African American) 87 ML/MIN (>60)
[2023-11-18 22:43] LABS: Albumin Level 4.1 g/dl (3.5-5.0); Albumin/Globulin Ratio 1.4 (1.1-1.8); Anion Gap 9.1 mEq/L (5-15); Calcium 8.7 mg/dl (8.4-10.2); Carbon Dioxide 27 mmol/L (22.0-30.0); Globulin 2.9 g/dL (1.3-3.2); Glucose 101 mg/dl (74-100); Lipase 55 U/L (23-300)
[2023-11-18 23:05] LABS: C-Reactive Protein 6.2 mg/L (0-4)
[2023-11-18 23:06] LABS: HCG,Quantitative < 2 mIU/ml (0-5.42)
[2023-11-18 23:11] LABS: Erythrocyte Sedimentation Rate 22 mm/hr (0-20)
[2023-11-19] VITALS: BP 111/72; PULSE 96; O2SAT 99
[2023-11-19 00:30] VITALS: BP 114/78; PULSE 91; O2SAT 99
[2023-11-19 00:47] VITALS: BP 114/78; PULSE 91; RESP 16; TEMP 36.8; O2SAT 99
== END 2023-11-19 00:48 | disposition home or self-care (01) ==
PROVIDERS: Emergency Provider Emergency Medicine; PCP Family Medicine
DX: K92.1 Melena (principal); R10.819 Abdominal tenderness, unspecified site
CPT/HCPCS: 74174; 80053; 81001; 83690; 84702; 85025; 85651; 86140; 96361; 96374; 99284

== ENCOUNTER 2024-07-16 11:35 | Emergency (ER) | payer BC, SELFPAY ==
[2024-07-16] VITALS (7 sets, daily range): BP systolic 122–155; BP diastolic 79–106; PULSE 104–129; RESP 16–18; TEMP 36.7; O2SAT 97–100; BMI 41.5
--- NOTE | 2024-07-16 12:05 | CT_ITS ---
PROCEDURE INFORMATION: Exam: CTA Chest With Contrast Exam date and time: 07/16/2024 1:25 PM Age: 33 years old Clinical indication: Shortness of breath; Additional info: SOA, tachy, recent surgery (cyst back of neck) TECHNIQUE: Imaging protocol: Computed tomographic angiography of the chest with contrast. Exam focused on the arteries. 3D rendering (Not supervised by radiologist): MIP and/or 3D reconstructed images were created by the technologist. Radiation optimization: All CT scans at this facility use at least one of these dose optimization techniques: automated exposure control; mA and/or kV adjustment per patient size (includes targeted exams where dose is matched to clinical indication); or iterative reconstruction. Contrast material: ISOVUE 370; Contrast volume: 80 ml; Contrast route: INTRAVENOUS (IV); COMPARISON: CT ANGIO CHEST PE PROTOCOL 05/28/2021 10:27 PM FINDINGS: Limitations: Mild motion artifact. Pulmonary arteries: Limited contrast bolus for detection of pulmonary emboli. No central pulmonary embolism. Limited enhancement of the peripheral pulmonary arteries, without detectable embolism within them. Aorta: Unremarkable. No aortic aneurysm. No aortic dissection. Lungs: Unremarkable. No consolidation. No masses. Pleural spaces: Unremarkable. No pneumothorax. No pleural effusion. Heart: Unremarkable. No cardiomegaly. No pericardial effusion. Lymph nodes: Small calcified mediastinal lymph nodes. Bones/joints: Unremarkable. No acute fracture. Soft tissues: Unremarkable. IMPRESSION: Limited contrast bolus for detection of pulmonary emboli. No central pulmonary embolism. Limited enhancement of the peripheral pulmonary arteries, without detectable embolism within them.
--- NOTE | 2024-07-16 12:05 | CT_ITS ---
PROCEDURE INFORMATION: Exam: CT Neck With Contrast Exam date and time: 07/16/2024 1:25 PM Age: 33 years old Clinical indication: Other: Recent surgery; Prior surgery; Surgery date: 3-7 days post-operative; Surgery type: Cyst removal; Additional info: SARAHIA, ivis, recent surgery (cyst back of neck) TECHNIQUE: Imaging protocol: Computed tomography of the neck with contrast. Radiation optimization: All CT scans at this facility use at least one of these dose optimization techniques: automated exposure control; mA and/or kV adjustment per patient size (includes targeted exams where dose is matched to clinical indication); or iterative reconstruction. Contrast material: ISOVUE; Contrast volume: 80 ml; Contrast route: IV; COMPARISON: CT ANGIO CHEST PE PROTOCOL 07/16/2024 1:25 PM FINDINGS: Salivary glands: Normal. Glands are normal in size. Pharynx: Unremarkable. No significant tonsillar enlargement. Prevertebral and retropharyngeal spaces: Unremarkable. Larynx: Unremarkable. Epiglottis is normal. Thyroid: Normal. No enlarged or calcified nodules. Trachea: Visualized trachea is unremarkable. Lungs: Unremarkable as visualized. Lymph nodes: Unremarkable. No lymphadenopathy. Soft tissues:: There is a rounded area of indistinct fat stranding and fascial thickening posterior to the right paraspinal cervical musculature at the level of C1 measuring 1.5 cm likely representing postoperative changes. There is no discrete fluid collection. There is an incidental intramuscular lipoma within the adjacent portion of the paraspinal muscles. Soft tissues: Unremarkable IMPRESSION: Mild postoperative changes posterior to the right paraspinal musculature upper cervical spine. No discrete fluid collection detected.
[2024-07-16] MEDS: ACETAMINOPHEN 500MG TAB 1000 MG PO (12:16)
[2024-07-16] MEDS: KETOROLAC 30MG/ML VIAL 15 MG IV (12:17)
[2024-07-16] MEDS: 0.9 % SODIUM CHLORIDE 50 ML VIAL IV (12:32)
[2024-07-16] MEDS: SODIUM CHLORIDE 0.9% 10ML SYR (RAD ONLY) 10 ML IV (12:33)
[2024-07-16] MEDS: IOPAMIDOL-370 (76%);100ML BOTTLE 80 ML IV (12:33)
--- NOTE | 2024-07-16 12:37 | PC.NURSE ---
pt returned from radiology
--- NOTE | 2024-07-16 12:37 | PC.NURSE ---
Pt back in room from CT
[2024-07-16 12:45] LABS: Basophils # 0.1 K/mm3 (0-0.2); Basophils % 0.8 % (0.1-2.0); Eosinophils # 0.1 K/mm3 (0.0-0.4); Eosinophils % 1.5 % (0.1-12.0); Hematocrit 39.1 % (37.0-47.0); Hemoglobin 13.7 g/dL (12.2-16.2); Mean Corpuscular HGB Conc 35.1 g/dL (31.8-35.4); Mean Corpuscular Hemoglobin 28.8 pg (27.0-31.2); Mean Corpuscular Volume 82.2 fl (81-99); Mean Platelet Volume 6.9 fl (7.4-10.4); Monocytes # 0.4 K/mm3 (0.1-1.0); Monocytes % 4.9 % (1.7-9.3); Neutrophils # 6.1 K/mm3 (1.8-7.8); Neutrophils % 69.8 % (37.0-80.0); Platelet Count 362 K/mm3 (142-424); Red Blood Count 4.75 M/mm3 (4.20-5.40); Red Cell Distribution Width 13.6 % (11.5-17.5); White Blood Count 8.8 K/mm3 (4.8-10.8)
--- NOTE | 2024-07-16 12:47 | ED_ITS ---
Discharge Plan Disposition Patient Disposition: Home, Self-Care Condition: Good Prescriptions Prescriptions: New sulfamethoxazole-trimethoprim [Bactrim DS] 800-160 mg tablet 1 tab PO BID 10 Days Qty: 20 0RF No Action Nurtec ODT 75 mg tablet,disintegrating 75 mg PO Q OTHER DAY zolpidem [Ambien] 5 mg tablet 5 mg PO HS Rx Instructions: may repeat once if no response in 30-60 minutes dextroamphetamine-amphetamine [Adderall] 20 mg tablet 20 mg PO BID Rx Instructions: administer doses at least 4-6 hours apart clonidine HCl 0.1 MG tablet 0.1 mg PO NEEDED PRN (Reason: Anxiety) fremanezumab-vfrm 225 MG/1.5 ML auto-injector 225 mg IM DAILY Referrals Follow up/Referrals: Tae Feliciano MD [Primary Care Provider] - See instructions Ozzy Montilla MD [Staff Physician] - See instructions Activity Restrictions/Add. Instructions Additional Instructions/Restrictions: You were evaluated in the emergency department today. At this time, your labs and imaging are reassuring, however since you said you have pus draining from the wound we are sending in a prescription for antibiotic for you to take at home. Please complete the full course as prescribed. Since you advised that you have heart rate that is very high most of the time, we have given you information for cardiology clinic. You may call their office tomorrow morning to schedule an appointment. Return to the emergency department for new or worsening symptoms. Take Tylenol and ibuprofen at home as needed for pain. Follow-up with your surgeon as well Clinical Impressions Clinical Impression: Encounter for post surgical wound check, Sinus tachycardia Stand Alone Forms Stand Alone Forms: Work/School Release Instructions Patient Instructions: DI for Skin Abscess Print Language Print Language: Turkmen Discharge ED Provider: Cassandra Mendoza General Adult HPI General Chief complaint: Skin/Abscess/Foreign Body Stated complaint: neck surg 07/07, puss coming from incision, pain Time Seen by Provider: 07/16/24 11:42 Mode of Arrival: Ambulatory Source of Information: Patient Limitations: No Limitations Description of Symptoms (Recalled from ER Triage Doc. by RN): Patient reports having a neck procedure on 07/07. Starting last night the incision began draining and is painful. History of Present Illness HPI narrative: This patient is a 33-year-old female with a history of ADHD, migraines, prior tubal ligation, and recent surgery for a cyst on the back of her neck presenting to the emergency department for evaluation with concern for postop pain. Patient reports that she had this removed from the skin on the back of her neck 07/07 and has already followed up outpatient for reassessment and was cleared and told she does not need to follow-up again. She notes that last night, the incision started draining pus and blood and she is very concerned. She also states that she is having pain radiating up into her right jaw. No trismus, drooling, stridor, chest pain, difficulty swallowing, or other concerns. She does note that she feels subjectively short of breath. She denies fevers, chills, or other systemic symptoms. Related Data Home Medications ?Medication ?Instructions ?Recorded ?Confirmed clonidine HCl 0.1 mg tablet 0.1 mg PO NEEDED PRN Anxiety 03/23/22 03/23/22 fremanezumab-vfrm 225 mg/1.5 mL 225 mg IM DAILY Headache 03/23/22 06/25/23 subcutaneous auto-injector dextroamphetamine-amphetamine 20 20 mg PO BID 06/25/23 06/25/23 mg tablet (Adderall) rimegepant 75 mg disintegrating 75 mg PO Q OTHER DAY 06/25/23 06/25/23 tablet (Nurtec ODT) zolpidem 5 mg tablet (Ambien) 5 mg PO HS 06/25/23 06/25/23 Previous Rx's ?Medication ?Instructions ?Recorded sulfamethoxazole 800 1 tab PO BID 10 days #20 tabs 07/16/24 mg-trimethoprim 160 mg tablet (Bactrim DS) Allergies Allergy/AdvReac Type Severity Reaction Status Date / Time No Known Allergies Allergy Verified 06/25/23 11:28 [facility] Disclaimer: The information contained in this section may have been updated after the patient was seen, as this information can be updated by other users. Medical History Acute carpal tunnel syndrome Adenomatous polyp of cervix Surgical History [place] teeth removed History of removal of cyst H/O tubal ligation History of right knee surgery Family History Other Anemia Asthma Diabetes Heart attack Hyperlipidemia Hypertension Stroke Thyroid disorder Tuberculosis Social History Smoking Status: Unknown if ever smoked alcohol intake: never substance use type: denies use current occupational status: unemployed Travel in the last 8 weeks: None household members: spouse housing: house current occupational exposures/hazards: No caffeine: Yes Other Medical History Have you received the Flu Vaccine for this season: No Have you received the Pneumonia Vaccine: No ROS Obtained: Yes All systems reviewed & no additional complaints except as documented Physical Exam General General appearance: alert, in no apparent distress and anxious Comment: Very anxious appearing Head Head exam: atraumatic and normocephalic Eye Eye exam: Present normal appearance, PERRL and EOMI ENT ENT exam: Present normal exam, normal oropharynx, mucous membranes moist and normal external ear exam Neck Neck exam: Present full ROM and trachea midline; Absent tenderness, meningismus or lymphadenopathy Expanded Neck Exam Neck image: 2 1. Incision C/D/I with minimal tenderness to palpation. No appreciable redness, swelling, or crepitus. No drainage at this time. Chest Chest inspection: Present normal inspection and symmetric chest wall rise; Absent tenderness Respiratory Respiratory exam: Present normal lung sounds bilaterally; Absent respiratory distress, wheezes, stridor or accessory muscle use Cardiovascular Cardiovascular exam: Present normal rhythm and tachycardia Abdominal Exam Abdominal exam: Present soft; Absent distention, tenderness or guarding Extremities Exam Extremities exam: Present normal inspection, full ROM and normal capillary refill; Absent tenderness or edema Back Exam Back exam: Present normal inspection and full ROM; Absent tenderness Neurological Exam Neurological exam: Present alert, oriented X3, CN II-XII intact and normal gait; Absent motor sensory deficit Psychiatric Psychiatric exam: Present anxious Skin Skin exam: Present warm and dry Medical Decision Making Medical Records Medical records reviewed: Yes I reviewed the patient's medical records. Screening: Per USPSTF and CDC recommendations, given the prevalence of disease in our region, it is our hospital?s policy to screen for HIV and viral Hepatitis for all patients aged 18 and over and those with ongoing risk factors. Smooth Inquiry Pt receiving controlled substance: No Vital Signs: 07/16/24 11:36 07/16/24 12:00 07/16/24 12:37 Temperature 98.0 F Temperature Source Oral Pulse Rate 121 H 106 H Pulse Rate [Radial] 129 H Respiratory Rate 18 Blood Pressure 145/82 H 145/82 H Blood Pressure [Right Arm] 155/106 H Blood Pressure Mean Blood Pressure Mean [Right Arm] 122 Blood Pressure Source [Right Arm] Automatic Cuff Blood Pressure Position [Right Arm] Sitting 02 Sat by Pulse Oximetry 99 99 98 Oxygen Delivery Method Room Air Room Air Room Air 07/16/24 13:00 07/16/24 13:30 07/16/24 14:00 Temperature Temperature Source Pulse Rate 104 H 115 H 109 H Pulse Rate [Radial] Respiratory Rate Blood Pressure 141/92 H 128/79 122/82 Blood Pressure [Right Arm] Blood Pressure Mean 95 90 Blood Pressure Mean [Right Arm] Blood Pressure Source [Right Arm] Blood Pressure Position [Right Arm] 02 Sat by Pulse Oximetry 100 98 97 Oxygen Delivery Method Room Air Room Air Room Air 07/16/24 14:36 Temperature 98.0 F Temperature Source Oral Pulse Rate 109 H Pulse Rate [Radial] Respiratory Rate 16 Blood Pressure 122/82 Blood Pressure [Right Arm] Blood Pressure Mean Blood Pressure Mean [Right Arm] Blood Pressure Source [Right Arm] Blood Pressure Position [Right Arm] 02 Sat by Pulse Oximetry Oxygen Delivery Method Room Air Lab Data Lab results reviewed: Yes I reviewed the patient's lab results. Lab Results 07/16/24 12:24: WBC 8.8, RBC 4.75, Hgb 13.7, Hct 39.1, MCV 82.2, MCH 28.8, MCHC 35.1, RDW 13.6, Plt Count 362, MPV 6.9 L, Neut % (Auto) 69.8, Lymph % (Auto) 23.0, Nash % (Auto) 4.9, Eos % (Auto) 1.5, Baso % (Auto) 0.8, Neut # (Auto) 6.1, Lymph # (Auto) 2.0, Nash # (Auto) 0.4, Eos # (Auto) 0.1, Baso # (Auto) 0.1, ESR 21 H, Sodium 136, Potassium 3.5, Chloride 103, Carbon Dioxide 26, Anion Gap 10.5, BUN 12, Creatinine 0.90, Estimated Creat Clear 67, Estimated GFR 72, Est GFR ( Amer) 87, Glucose 112 H, Lactate 0.9, Calcium 8.9, Total Bilirubin 0.6, AST 24, ALT 19, Alkaline Phosphatase 101, C-Reactive Protein 8.4 H, Total Protein 7.4, Albumin 4.2, Globulin 3.2, Albumin/Globulin Ratio 1.3, Procalcitonin 0.035, TSH 0.59, Thyroxine (T4) 8.8, HIV 1&2 Antibody Rapid Nonreactive 07/16/24 12:24 07/16/24 12:24 Orders (Tests/Meds): ED MEDICATIONS Discontinued Medications Generic Name Dose Route Start Last Admin Trade Name Pascale PRN Reason Stop Dose Admin Acetaminophen 1,000 mg 07/16/24 12:07 07/16/24 12:16 Acetaminophen 500mg Tab PO 07/16/24 12:08 1,000 mg ONCE ONE Administration Iopamidol 80 ml 07/16/24 12:31 07/16/24 12:33 Iopamidol-370 (76%);100ml Bottle IV 07/16/24 12:32 80 ml ONCE ONE Administration Ketorolac Tromethamine 15 mg 07/16/24 12:07 07/16/24 12:17 Ketorolac 30mg/Ml Vial IV 07/16/24 12:08 15 mg ONCE ONE Administration Sodium Chloride 10 ml 07/16/24 12:31 07/16/24 12:33 Sodium Chloride 0.9% 10ml Syr (Rad Only) IV 07/16/24 12:32 10 ml ONCE ONE Administration Sodium Chloride 50 ml 07/16/24 12:31 07/16/24 12:32 0.9 % Sodium Chloride 50 Ml Vial IV 07/16/24 12:32 50 ml ONCE ONE Administration ORDERS Category Date Time Status CT angio chest PE protocol Stat Cat Scan 07/16/24 12:[address] soft tissue neck w con Stat Cat Scan 07/16/24 12:05 Completed CBC w/Auto Diff [Complete Blood Count Auto Diff] Stat Lab 07/16/24 12:24 Completed CMP [Comprehensive Metabolic Panel] Stat Lab 07/16/24 12:24 Completed CRP [C-Reactive Protein] Stat Lab 07/16/24 12:24 Completed ESR [Erythrocyte Sedimentation Rate] Stat Lab 07/16/24 12:24 Completed HIV (1&2) Antibody Rapid Stat Lab 07/16/24 12:24 Completed Hep C Ab with Reflex to RNA Stat Lab 07/16/24 12:24 Received Lactic Acid Stat Lab 07/16/24 12:24 Completed Procalcitonin Stat Lab 07/16/24 12:24 Completed T4 (Thyroxine) Stat Lab 07/16/24 12:24 Completed TSH [Thyroid Stimulating Hormone] Stat Lab 07/16/24 12:24 Completed ECG Data Tracing #1: I reviewed this ECG and interpreted as documented below: Sinus tachycardia with a ventricular rate of [address] changes concerning for ischemia. Normal axis and intervals. ECG initial impression date: 07/16/24 ECG initial impression time: 13:00 Medical Decision Narrative: In summary, this patient is a 33-year-old female presenting to the Emergency Department for evaluation of abnormal drainage from incision where she had a cyst removed on the back of her neck as well as increase in pain. Differential diagnoses considered include but are not limited to postoperative infection, wound dehiscence, routine postoperative healing. Ruling out the most morbid conditions drove assessment. On exam, the patient is very well-appearing. She is very anxious appearing and is hypertensive and tachycardic, which I presume is likely related to anxiety. She is afebrile. She has full intact range of motion of her neck with no drooling, trismus, stridor, or other concerns. She has an incision on the posterior neck that is clean, dry, and intact with no significant surrounding redness, warmth, or other concerns. No drainage. Workup included CBC, CMP, CRP, procalcitonin, lactic acid, thyroid studies, CT soft tissue neck, CTA PE protocol. Patient was given IV Toradol and oral Tylenol for symptomatic improvement of pain. I independently interpreted CT scan prior to the radiologist read and noted postoperative changes but no obvious abscess or significant soft tissue stranding. Please see their read for final interpretation. Labs were obtained that demonstrated no significant leukocytosis. She has inflammatory markers that are right at the upper limits of normal, but this is expected in the postprocedural period. Normal procalcitonin. EKG obtained is reassuring with the exception of mild tachycardia. On reassessment, patient had good improvement after administration of Toradol and Tylenol. Her heart rate is improved to the low 100s that she is less anxious appearing now. She notes she always has tachycardia and her heart rate is pretty much never below 100. She states she is never seen anyone for this. I did provide her with information for cardiology if she wishes to contact them and follow-up. At this time I feel we have excluded acute life-threatening pathology as a cause of her symptoms. Given that she said that she had some pus draining from the wound, though it does not appear grossly infected on clinical exam, will treat with oral Bactrim. Advise that she follow-up very closely with her surgeon as well as primary care. She was given strict return precautions and was discharged after all questions were answered. Critical Care Critical Care Time Critical Care Time: No
[2024-07-16 12:55] LABS: Chloride 103 mmol/L (98-107)
[2024-07-16 12:56] LABS: Albumin Level 4.2 g/dl (3.5-5.0); Potassium 3.5 mmoL/L (3.5-5.1); Sodium 136 mmol/L (136-145)
[2024-07-16 12:58] LABS: Blood Urea Nitrogen 12 mg/dl (7-17); Creatinine Clearance Estimated 67 mL/min (50-200); Estimated Glomerular Filt Rate 72 ml/min (>60); GFR (African American) 87 ML/MIN (>60)
--- NOTE | 2024-07-16 12:58 | ECG_ITS ---
APPROVED REPORT Exam: Resting ECG HR:103 bpm ECG Measurements Heart Rate 103 AXES SD 132 P 75 QRSd 74 QRS 47 QT 321 T 16 QTc 380 Conclusion SINUS TACHYCARDIA NONSPECIFIC T-WAVE ABNORMALITY ABNORMAL RHYTHM ECG Electronically signed by : MILAGRO ROACH, 07/16/2024 15:49:09
[2024-07-16 12:59] LABS: Alanine Aminotransferase 19 U/L (12-78); Albumin/Globulin Ratio 1.3 (1.1-1.8); Alkaline Phosphatase 101 U/L (38-126); Anion Gap 10.5 mEq/L (5-15); Aspartate Amino Transferase 24 U/L (14-36); Bilirubin,Total 0.6 mg/dl (0.2-1.3); Calcium 8.9 mg/dl (8.4-10.2); Carbon Dioxide 26 mmol/L (22.0-30.0); Globulin 3.2 g/dL (1.3-3.2); Glucose 112 mg/dl (74-100); Total Protein,Serum 7.4 g/dl (6.3-8.2)
[2024-07-16 13:00] LABS: Lactic Acid 0.9 mmol/L (0.7-2.1)
[2024-07-16 13:08] LABS: C-Reactive Protein 8.4 mg/L (0-4)
[2024-07-16 13:09] LABS: Erythrocyte Sedimentation Rate 21 mm/hr (0-20)
[2024-07-16 13:14] LABS: HIV (1&2) Antibody Rapid NONREACTIVE (NONREACTIVE)
[2024-07-16 13:21] LABS: Procalcitonin 0.035 ng/mL (0.0-2.0)
[2024-07-16 13:22] LABS: T4 (Thyroxine) 8.8 ug/dl (5.53-11.0)
[2024-07-16 13:36] LABS: Thyroid Stimulating Hormone 0.59 uIU/mL (0.465-4.68)
[2024-07-18 08:33] LABS: HCV Ab Non Reactive (Non Reactive)
== END 2024-07-16 14:37 | disposition home or self-care (01) ==
PROVIDERS: Emergency Provider Emergency Medicine; PCP Family Medicine
DX: R00.0 Tachycardia, unspecified (principal); Z48.00 Encounter for change or removal of nonsurgical wound dressing
CPT/HCPCS: 70491; 71275; 80050; 80053; 83605; 84145; 84436; 84443; 85025; 85651; 86140; 86803; 87389; 93005; 96374; 99285; J1885; Q9967

== ENCOUNTER 2024-07-31 18:40 | Emergency (ER) | payer BC, SELFPAY ==
--- NOTE | 2024-07-31 18:47 | ECG_ITS ---
APPROVED REPORT Exam: Resting ECG HR:106 bpm ECG Measurements Heart Rate 106 AXES DC 141 P 46 QRSd 75 QRS 32 QT 315 T -6 QTc 377 Conclusion SINUS TACHYCARDIA ABNORMAL RHYTHM ECG Electronically signed by : ANJEL HICKEY, 08/03/2024 07:40:03
[2024-07-31 18:52] VITALS: BP 145/92; PULSE 106; RESP 16; TEMP 36.6; O2SAT 99; BMI 41.5
--- NOTE | 2024-07-31 19:19 | ED_ITS ---
Discharge Plan Disposition Patient Disposition: Home, Self-Care Condition: Good Prescriptions Prescriptions: New cephalexin 500 mg capsule 500 mg PO BID 7 Days Qty: 14 0RF Discontinued sulfamethoxazole-trimethoprim [Bactrim DS] 800-160 mg tablet 1 tab PO BID 10 Days Qty: 20 0RF No Action Nurtec ODT 75 mg tablet,disintegrating 75 mg PO Q OTHER DAY zolpidem [Ambien] 5 mg tablet 5 mg PO HS Rx Instructions: may repeat once if no response in 30-60 minutes dextroamphetamine-amphetamine [Adderall] 20 mg tablet 20 mg PO BID Rx Instructions: administer doses at least 4-6 hours apart clonidine HCl 0.1 MG tablet 0.1 mg PO NEEDED PRN (Reason: Anxiety) fremanezumab-vfrm 225 MG/1.5 ML auto-injector 225 mg IM DAILY Referrals Follow up/Referrals: Soledad Parker DPM [Staff Physician] - See instructions Tae Feliciano MD [Primary Care Provider] - See instructions Activity Restrictions/Add. Instructions Additional Instructions/Restrictions: I referred you to podiatry for ongoing follow-up and management. Please call in the morning to make your appointment. Follow-up with your PCP for no improvement or worsening signs or symptoms or return to the ER as needed Clinical Impressions Clinical Impression: JILL (generalized anxiety disorder) Puncture wound of foot, right Qualifiers: Encounter type: initial encounter Qualified Code(s): S91.331A - Puncture wound without foreign body, right foot, initial encounter Instructions Patient Instructions: DI for Puncture Wound Print Language Print Language: Japanese Discharge ED Provider: Casey Manzanares General Adult HPI <TAYLOR Forrest - Last Filed: 08/01/24 18:02> General Chief complaint: PAIN Stated complaint: AO 07/31/24 1800 ran metal in right foot & CP Time Seen by Provider: 07/31/24 19:19 Mode of Arrival: Wheelchair Source of Information: Patient Limitations: No Limitations Description of Symptoms (Recalled from ER Triage Doc. by RN): pt states she stepped on a piece of metal about 45 min [employer]IFT TRUCK [employer] that went through the arch of he foot. pt pulled it out. pt c/o 12/10 pain that is sharp. pt states her last tetnus vaccine was <5yrs ago. pt then reported 3/10 generalized chest tightness. pt denies SOA, abd pain, or N/V/D. History of Present Illness HPI narrative: Patient presents for evaluation of a right foot injury and anxiety attack. Patient stepped on a [id number] hanging rack that has metal hooks. The hook penetrated the sole of her right foot. The patient removed the hook herself. Currently she denies numbness tingling fever chills loss of motor or sensory. She hurts when standing and at rest. Patient has a known history of anxiety disorder and initially on arrival to the emergency department told the ER staff she was having chest pain. However at the time of my exam I queried her further and she stated that she was just panicking and that she does not currently have chest pain or pressure and does not have a cardiac history. I asked her if she wanted to be seen for cardiac chest pain or treatment for her anxiety and she said no. She just wanted to be seen for her foot. Related Data Home Medications ?Medication ?Instructions ?Recorded ?Confirmed clonidine HCl 0.1 mg tablet 0.1 mg PO NEEDED PRN Anxiety 03/23/22 03/23/22 fremanezumab-vfrm 225 mg/1.5 mL 225 mg IM DAILY Headache 03/23/22 06/25/23 subcutaneous auto-injector dextroamphetamine-amphetamine 20 20 mg PO BID 06/25/23 06/25/23 mg tablet (Adderall) rimegepant 75 mg disintegrating 75 mg PO Q OTHER DAY 06/25/23 06/25/23 tablet (Nurtec ODT) zolpidem 5 mg tablet (Ambien) 5 mg PO HS 06/25/23 06/25/23 Previous Rx's ?Medication ?Instructions ?Recorded cephalexin 500 mg capsule 500 mg PO BID 7 days #14 caps 07/31/24 Allergies Allergy/AdvReac Type Severity Reaction Status Date / Time No Known Allergies Allergy Verified 07/31/24 18:59 [facility] <TAYLOR Forrest - Last Filed: 08/01/24 18:02> [facility] Disclaimer: The information contained in this section may have been updated after the patient was seen, as this information can be updated by other users. Medical History Acute carpal tunnel syndrome Adenomatous polyp of cervix Surgical History [place] teeth removed History of removal of cyst H/O tubal ligation History of right knee surgery Family History Other Anemia Asthma Diabetes Heart attack Hyperlipidemia Hypertension Stroke Thyroid disorder Tuberculosis Social History Smoking Status: Never smoker alcohol intake: never substance use type: denies use current occupational status: unemployed household members: spouse housing: house current occupational exposures/hazards: No caffeine: Yes Other Medical History Have you received the Flu Vaccine for this season: No Have you received the Pneumonia Vaccine: No <TAYLOR Forrest - Last Filed: 08/01/24 18:02> ROS Obtained: Yes Systems reviewed as appropriate & no additional complaints except as documented Physical Exam <TAYLOR Forrest - Last Filed: 08/01/24 18:02> General General appearance: alert and in no apparent distress Respiratory Respiratory exam: Present normal lung sounds bilaterally Cardiovascular Cardiovascular exam: Present regular rate Neurological Exam Neurological exam: Present alert and oriented X3 Medical Decision Making <TAYLOR Forrest - Last Filed: 08/01/24 18:02> Medical Records Medical records reviewed: Yes I reviewed the patient's medical records. Screening: Per USPSTF and CDC recommendations, given the prevalence of disease in our region, it is our hospital?s policy to screen for HIV and viral Hepatitis for all patients aged 18 and over and those with ongoing risk factors. Smooth Inquiry Pt receiving controlled substance: No Vital Signs: 07/31/24 18:52 07/31/24 20:44 Temperature 98 F 97.8 F Temperature Source Oral Pulse Rate 83 Pulse Rate [Left] 106 H Respiratory Rate 16 18 Blood Pressure 132/82 Blood Pressure [Right Arm] 145/92 H Blood Pressure Mean [Right Arm] 109 Blood Pressure Source [Right Arm] Automatic Cuff Blood Pressure Position [Right Arm] Sitting 02 Sat by Pulse Oximetry 99 Orders (Tests/Meds): ED MEDICATIONS Discontinued Medications Generic Name Dose Route Start Last Admin Trade Name Freq PRN Reason Stop Dose Admin Cephalexin HCl 500 mg 07/31/24 20:20 07/31/24 20:32 Cephalexin 500mg Capsule PO 07/31/24 20:21 500 mg ONCE ONE Administration ORDERS Category Date Time Status Foot XR right minimum 3 views [XR foot RT min 3V] Stat Exams 07/31/24 19:19 Completed Medical Decision Narrative: In summary patient is a 34-year-old female who presents to the emergency department for evaluation of puncture wound to her right foot. Patient is initially normotensive with a blood pressure 145/92 with a heart rate of 106 respiratory rate 16 O2 sats 9 9% on room air upon arrival, and afebrile. Physical exam is remarkable for a puncture wound on the plantar surface of her right foot located at the junction of the middle and distal third right in the midline. There is no bony deformity patient is neurovascularly intact distally she has full range of motion.. Differential diagnosis includes simple puncture wound versus possible bony abnormality versus less possible tendon injury although less likely. Initial workup will be conducted with plain film x-rays and via patient directed decision making we will not be working up her self- diagnosed chest discomfort as she feels strongly that this was an anxiety attack. Initial interventions include Tylenol Motrin and patient is up-to-date on her tetanus. Initial workup reviewed by me shows no bony abnormality. Upon repeat evaluation patient is able to bear weight. Given this patient is appropriate for discharge with a prescription for Keflex with first dose given here and referred to podiatry for ongoing follow-up and management. <Casey Manzanares MD - Last Filed: 08/05/24 07:22> Vital Signs: 07/31/24 18:52 07/31/24 20:44 Temperature 98 F 97.8 F Temperature Source Oral Pulse Rate 83 Pulse Rate [Left] 106 H Respiratory Rate 16 18 Blood Pressure 132/82 Blood Pressure [Right Arm] 145/92 H Blood Pressure Mean [Right Arm] 109 Blood Pressure Source [Right Arm] Automatic Cuff Blood Pressure Position [Right Arm] Sitting 02 Sat by Pulse Oximetry 99 Orders (Tests/Meds): ED MEDICATIONS Discontinued Medications Generic Name Dose Route Start Last Admin Trade Name Freq PRN Reason Stop Dose Admin Cephalexin HCl 500 mg 07/31/24 20:20 07/31/24 20:32 Cephalexin 500mg Capsule PO 07/31/24 20:21 500 mg ONCE ONE Administration ORDERS Category Date Time Status Foot XR right minimum 3 views [XR foot RT min 3V] Stat Exams 07/31/24 19:19 Completed ECG Data Tracing #1: I reviewed this ECG and interpreted as documented below: (Sinus tachycardia 106 bpm no acute ischemic change. Normal axis. TN 141, QRS 75, QTc 377) Medical Decision Narrative: In summary patient is a 34-year-old female who presents to the emergency department for evaluation of puncture wound to her right foot. Patient is initially normotensive with a blood pressure 145/92 with a heart rate of 106 respiratory rate 16 O2 sats 9 9% on room air upon arrival, and afebrile. P hysical exam is remarkable for a puncture wound on the plantar surface of her right foot located at the junction of the middle and distal third right in the midline. There is no bony deformity patient is neurovascularly intact distally she has full range of motion.. Differential diagnosis includes simple puncture wound versus possible bony abnormality versus less possible tendon injury although less likely. Initial workup will be conducted with plain film x-rays and via patient directed decision making we will not be working up her self- diagnosed chest discomfort as she feels strongly that this was an anxiety attack. Initial interventions include Tylenol Motrin and patient is up-to-date on her tetanus. Initial workup reviewed by me shows no bony abnormality. Upon repeat evaluation patient is able to bear weight. Given this patient is appropriate for discharge with a prescription for Keflex with first dose given here and referred to podiatry for ongoing follow-up and management. I was consulted by the DORIE, and we discussed the complexity of the problems being addressed. I approved the treatment and management plan for this patient's care in the Emergency Department, thus performing a substantive portion of the medical decision making. Casey Manzanares MD Critical Care <TAYLOR Forrest - Last Filed: 08/01/24 18:02> Critical Care Time Critical Care Time: No
--- NOTE | 2024-07-31 19:19 | XR_ITS ---
PROCEDURE INFORMATION: Exam: XR Right Foot Exam date and time: 07/31/2024 7:51 PM Age: 34 years old Clinical indication: Pain; Right; Patient HX: To the bottom of foot in arch; Additional info: Pucnture wound TECHNIQUE: Imaging protocol: Radiologic exam of the right foot. Views: 3 or more views. COMPARISON: MR KNEE RT WO CON 03/09/2022 3:15 PM FINDINGS: Bones/joints: There is a 3.5 mm plantar calcaneal spur. No acute fracture or dislocation. Joint spaces are unremarkable. Soft tissues: No radiopaque foreign bodies noted. IMPRESSION: No acute findings.
--- NOTE | 2024-07-31 19:34 | PC.NURSE ---
Pt resting comfortably in wheelchair awaiting xray . Skin pink warm and dry REsp full and easy Pedal pulses strong and equal.
[2024-07-31] MEDS: cephALEXin 500MG CAPSULE 500 MG PO (20:32)
[2024-07-31 20:44] VITALS: BP 132/82; PULSE 83; RESP 18; TEMP 36.6
== END 2024-07-31 20:46 | disposition home or self-care (01) ==
PROVIDERS: Emergency Provider Emergency Medicine; PCP Family Medicine
DX: S91.331A Puncture wound without foreign body, right foot, initial encounter (principal); F41.1 Generalized anxiety disorder; M79.671 Pain in right foot; R07.89 Other chest pain; W26.8XXA Contact with other sharp object(s), not elsewhere classified, initial encounter; Y93.89 Activity, other specified; Y92.89 Other specified places as the place of occurrence of the external cause
CPT/HCPCS: 73630; 93005; 99283

== ENCOUNTER 2024-08-23 09:36 | Emergency (ER) | payer BC, SELFPAY ==
[2024-08-23 10:00] VITALS: BP 149/92; PULSE 101; RESP 19; TEMP 36.8; O2SAT 99; BMI 35.6
--- NOTE | 2024-08-23 10:15 | ED_ITS ---
Discharge Plan Disposition Patient Disposition: Home, Self-Care Condition: Good Prescriptions Prescriptions: New sulfamethoxazole-trimethoprim [Bactrim DS] 800-160 mg tablet 1 tab PO Q12H Qty: 20 0RF mupirocin 2 % ointment 1 applic topical TID 10 Days Qty: 22 0RF Rx Instructions: apply thin layer just inside right nostril area No Action dextroamphetamine-amphetamine [Adderall] 20 mg tablet 20 mg PO BID Rx Instructions: administer doses at least 4-6 hours apart amitriptyline 25 mg tablet 25 - 50 mg PO HS Patient Comments: TAKE 1 TO 2 TABLETS BY MOUTH EVERY NIGHT Nurtec ODT 75 mg tablet,disintegrating 75 mg PO DAILYP PRN (Reason: Migraine Headache) Ajovy Autoinjector 225 mg/1.5 mL auto-injector 225 mg SQ MONTHLY Referrals Follow up/Referrals: Jasbir Escobar MD [Physician] - 08/23/24 1:40 am Tae Feliciano MD [Primary Care Provider] - See instructions Activity Restrictions/Add. Instructions Additional Instructions/Restrictions: You have an appointment later today with ENT make sure to keep that appointment Take medicaiton as prescribed Use ointment as prescribed Further instructions and care per you ENT visit later today Clinical Impressions Clinical Impression: Infection of nose Instructions Patient Instructions: Trimethoprim/Sulfamethoxazole (Alternative Therapy), Mupirocin Print Language Print Language: Wolof Discharge ED Provider: Lianna Garcia [facility] [place] General Stated complaint: inside nose pain and swollen Mode of Arrival: Ambulatory Source of Information: Patient Limitations: No Limitations Time Seen by Provider: 08/23/24 10:16 Description of Symptoms (Recalled from Triage Doc. by RN): PATIENT C/O SORE SPOT ON INSIDE OF RIGHT SIDE OF NOSE WITH NASAL DRAINAGE X 2 DAYS HEENT Symptoms (Recalled from RN notes): Yes Resp Symptoms (Recalled from RN notes): No Skin Symptoms (Recalled from RN notes): No MS Symptoms (Recalled from RN notes): No Functional Status (Recalled from RN notes): WNL History of Present Illness Provider Complaint: Patient states that few days ago she had a pimple like area on the inside of her right nostril States that since then the she has had some hard dry drainage from the area and now her nose on the right side is sore to the touch and red States that she has a hx of MRSA and not sure if she may be having MRSA inside her nose or what but it has continued to get worse and hurts for her glasses to sit on her nose Related Data Home Medications ?Medication ?Instructions ?Recorded ?Confirmed dextroamphetamine-amphetamine 20 20 mg PO BID 06/25/23 08/23/24 mg tablet (Adderall) amitriptyline 25 mg tablet 25 - 50 mg PO HS 08/23/24 08/23/24 fremanezumab-vfrm 225 mg/1.5 mL 225 mg SQ MONTHLY 08/23/24 08/23/24 subcutaneous auto-injector (Ajovy) rimegepant 75 mg disintegrating 75 mg PO DAILYP PRN Migraine 08/23/24 08/23/24 tablet (Nurtec ODT) Headache Previous Rx's ?Medication ?Instructions ?Recorded mupirocin 2 % topical ointment 1 applic topical TID 10 days #22 08/23/24 grams sulfamethoxazole 800 1 tab PO Q12H #20 tabs 08/23/24 mg-trimethoprim 160 mg tablet (Bactrim DS) Allergies Allergy/AdvReac Type Severity Reaction Status Date / Time doxycycline Allergy Unknown Verified 08/23/24 10:13 allergy reaction levofloxacin (From Levaquin) Allergy Unknown Verified 08/23/24 10:13 allergy reaction Worker's Comp Is this a Worker's Comp case?: No [facility] Disclaimer: The information contained in this section may have been updated after the patient was seen, as this information can be updated by other users. Medical History Acute carpal tunnel syndrome Adenomatous polyp of cervix Surgical History [place] teeth removed History of removal of cyst H/O tubal ligation History of right knee surgery Family History Other Anemia Asthma Diabetes Heart attack Hyperlipidemia Hypertension Stroke Thyroid disorder Tuberculosis Social History (Updated 08/05/24 @ 07:22 by Casey Manzanares MD) Smoking Status: Never smoker alcohol intake: never substance use type: denies use current occupational status: unemployed Travel in the last 8 weeks: None household members: spouse housing: house current occupational exposures/hazards: No caffeine: Yes ROS Obtained: Yes All systems reviewed & no additional complaints except as documented and Yes Systems reviewed as appropriate & no additional complaints except as documented Constitutional Constitutional: Reports system reviewed and no additional complaints, except as documented and Reports as per HPI ENT Ears, Nose, Mouth, and Throat: Reports system reviewed and no additional complaints, except as documented, Reports as per HPI and Reports other (soreness and swelling on right nostril area ) Comments: pain and swelling in right side of nostril Cardiovascular Cardiovascular: Reports system reviewed and no additional complaints, except as documented and Reports as per HPI Respiratory Respiratory: Reports system reviewed and no additional complaints, except as documented and Reports as per HPI Physical Exam General General appearance: alert and in no apparent distress ENT ENT exam: Present mucous membranes moist Expanded ENT Exam Nose/Mouth Image: 2 1. redness, swelling and tenderness, with yellowish crusty like area noted just inside nostril Respiratory Respiratory exam: Present normal lung sounds bilaterally; Absent respiratory distress or wheezes Cardiovascular Cardiovascular exam: Present regular rate, normal rhythm and normal heart sounds Neurological Exam Neurological exam: Present alert, oriented X3 and normal gait Medical Decision Making Medical Records Screening: Per USPSTF and CDC recommendations, given the prevalence of disease in our region, it is our hospital?s policy to screen for HIV and viral Hepatitis for all patients aged 18 and over and those with ongoing risk factors. Smooth Inquiry Pt receiving controlled substance: No Smooth was queried for this patient: No Vital Signs: 08/23/24 10:00 Temperature 98.2 F Temperature Source Oral Pulse Rate [Left Brachial] 101 H Respiratory Rate 19 Blood Pressure [Left Arm] 149/92 H Blood Pressure Mean [Left Arm] 111 Blood Pressure Source [Left Arm] Automatic Cuff Blood Pressure Position [Left Arm] Sitting 02 Sat by Pulse Oximetry 99 Oxygen Delivery Method Room Air Medical Decision Narrative: Called ENT office and they had opening later today in the office at 1:40 Patient has hx of MRSA and has been having redness swelling and soreness to right side of nostril, will prescribe bactrim and mupirocin and have patient follow up with ENT for further treatment and evaluation
[2024-08-23 10:33] VITALS: BP 149/92; PULSE 101; RESP 19; TEMP 36.8; O2SAT 99
== END 2024-08-23 10:38 | disposition home or self-care (01) ==
PROVIDERS: Emergency Provider Nurse Practitioner; PCP Family Medicine
DX: J34.89 Other specified disorders of nose and nasal sinuses (principal)
CPT/HCPCS: 99212; G0381

== ENCOUNTER 2025-05-08 21:24 | Emergency (ER) | payer BC, SELFPAY ==
--- OUTSIDE RECORDS SUMMARY | 2025-03-23 14:15 | XMS_ITS | Encounter Summary ---
[facility] Address [address] [place] [id number] Care Team Providers Care Credit Negotiator Name Role Phone Nhan Gunderson Primary Care Provider [phone] Reason for Visit * Reason Comments Migraine Encounter Details Date Type Department Care Team (Late st Contact Info) Description 03/23/2025 2:15 PM EDT Office Visit [facility] [address] [address] [place] [address] Ramin Maxwell MD [address] [facility] [address] [place] [address] Migraine without aura and without status migrainosus, not intractable (Primary Dx) Social History Tobacco Use Types Packs/Day Years Used Date Smoking Tobacco: Former Cigarettes 2 2 Passive Smoke Exposure: Past Smokeless Tobacco: Never Tobacco Cessation:Counseling Given: No Comments:quit 5 years ago Alcohol Use Standard Drinks/Week Comments No 0 (1 standard drink = 0.6 oz pur e alcohol) PHQ-2 Answer Date Recorded Retired PHQ-9: Brief Depression Severity Measure Score 0 08/02/2023 PHQ-2 Answer Date Recorded Patient Health Questionnaire-2 Score 0 03/22/2025 Comments No Sex and Gender Information Value Date Recorded Sex Assigned at Not on file Legal Sex Female 1:01 PM EST Gender Identity Not on file Sexual Orientation Not on file documented as of this encounter Last Filed Vital Signs Vital Sign Reading Time Taken Comments Blood Pressure 122/80 03/23/2025 2:05 PM EDT Pulse 95 03/23/2025 2:05 PM EDT Temperature - - Respiratory Rate - - Oxygen Saturation 99% 03/23/2025 2:05 PM EDT Inhaled Oxygen Concentration - - Weight 92.5 kg (204 lb) 03/23/2025 2:05 PM EDT Height 149.9 cm (4' 11.02 ) 03/23/2025 2:05 PM E DT Body Mass Index 41.18 03/23/2025 2:05 PM EDT documented in this encounter Progress Notes * Ramin Maxwell MD - 03/23/2025 2:24 PM EDTAssociated Problem(s): Migraine without aura and without status migrainosus, not intractable MALCOLM controlled on Ajovy 225 mg sq q 4 weeks. Nurtec 75 mg qod * Ramin Maxwell MD - 03/23/2025 2:15 PM EDT Chief Complaint Migraine Subjective Osmar Soto presents to [facility] History of Present Illness 34 y.o. female returns in follow up. Last visit on 02/14/24 continued Ajovy, Nurtec. MRI Brain, mild white matter dz. Cne to two MALCOLM a month. Located in forehead. Intensity is severe. Nurtec aborting MALCOLM. Objective Vital Signs: BP 122/80 Pulse 95 Ht 149.9 cm (59.02 ) Wt 92.5 kg (204 lb) SpO2 99% BMI 41.18 kg/m?? Estimated body mass index is 41.18 kg/m?? as calculated from the following: Height as of this encounter: 149.9 cm (59.02 ). Weight as of this encounter: 92.5 kg (204 lb). Neurological Exam Mental Status Awake, alert and oriented to person, place and time. Oriented to person, place and time. Speech is normal. Language is fluent with no aphasia. Attention and concentration are normal. Fund of knowledge is appropriate for level of education. Cranial Nerves CN III, IV, : Extraocular movements intact bilaterally. Pupils equal round and reactive to light bilaterally. CN V: Facial sensation is normal. CN VII: Full and symmetric facial movement. CN IX, X: Palate elevates symmetrically CN XI: Shoulder shrug strength is normal. CN XII: Tongue midline without atrophy or fasciculations. Motor Strength is 5/5 throughout all four extremities. Sensory Sensation is intact to light touch, pinprick, vibration and proprioception in all four extremities. Reflexes Deep tendon reflexes are 2+ and symmetric in all four extremities. Coordination [id number]-fh-xepb, rapid alternating movements and idfx-rm-[id number] normal bilaterally without dysmetria. Gait Normal casual, toe, heel and tandem gait. Physical Exam Eyes: Extraocular Movements: Extraocular movements intact. Pupils: Pupils are equal, round, and reactive to light. Neurological: Motor: Motor strength is normal. Coordination: Coordination is intact. Deep Tendon Reflexes: Reflexes are normal and symmetric. Psychiatric: Speech: Speech normal. Result Review : The following data was reviewed by: Ramin Maxwell MD on 03/23/2025: Assessment and Plan Diagnoses and all orders for this visit: 1. Migraine without aura and without status migrainosus, not intractable (Primary) Assessment & Plan: MALCOLM controlled on Ajovy 225 mg sq q 4 weeks. Nurtec 75 mg qod Follow Up No follow-ups on file. Patient was given instructions and counseling regarding her condition or for health maintenance advice. Please see specific information pulled into the AVS if appropriate. documented in this encounter Plan of Treatment Upcoming Encounters Date Type Department Care Team (Late st Contact Info) Description 03/22/2026 3:30 PM EDT Office Visit [facility] [address] [facility] [address] [place] [id number] Ramin Maxwell MD [address] [facility] [address] [place] [address] documented as of this encounter Goals Goal Patient Goal Type Associated Problems Recent Progress Patient-Stated? Author Specialty Pharmacy General Goal General On track( 025 3:10 PM EDT) No Yuly Muller, PharmD Note: On Average, Reduce: Frequency of migraines by 50% Symptom severity by 90 % within 2 hours of taking acute therapy. Baseline Values/Notes on Enrollment Frequency: daily Symptom Severity: severe Duration: Date of Reassessment Notes on Progress Toward Above Goals 11/08/24 dw Pt notes about 1 headache monthly. 03/23/25 dw Headaches/migraines under control. Pt may have 1 or 2 monthly if she doesn't get enough sleep. documented as of this encounter Visit Diagnoses Diagnosis Migraine without aura and without status migrainosus, not intractable- Primary documented in this encounter Care Teams Credit Negotiator Relationship Specialty Start Date End Date Nhan Gunderson PA [address] [place] [address] PCP - General Physician Electro Mechanical Solar Technician 09/23/21 documented as of this encounter
[2025-05-08] VITALS (7 sets, daily range): BP systolic 101–136; BP diastolic 64–86; PULSE 93–121; RESP 12–20; TEMP 37.1; O2SAT 96–100; BMI 29.9
--- NOTE | 2025-05-08 21:22 | ECG_ITS ---
APPROVED REPORT Exam: Resting ECG HR:125 bpm ECG Measurements Heart Rate 125 AXES AZ 124 P 55 QRSd 75 QRS 25 QT 336 T 11 QTc 410 Conclusion SINUS TACHYCARDIA LOW QRS VOLTAGE IN PRECORDIAL LEADS [QRS DEFLECTION < 1.0 mV IN CHEST LEADS] NONSPECIFIC ST & T-WAVE ABNORMALITY ABNORMAL RHYTHM ECG UNCONFIRMED REPORT Electronically signed by : FEDE GARCIA, 05/10/2025 06:58:31
--- NOTE | 2025-05-08 21:30 | XR_ITS ---
PROCEDURE INFORMATION: Exam: XR Chest Exam date and time: 05/08/2025 10:02 PM Age: 34 years old Clinical indication: Pain; Chest pressure; Additional info: Chest pain/shortness of breath TECHNIQUE: Imaging protocol: Radiologic exam of the chest. Views: 2 views. Total images: 2 COMPARISON: CT ANGIO CHEST PE PROTOCOL 07/16/2024 1:25 PM FINDINGS: Lungs: Unremarkable. No consolidation. No pulmonary vascular congestion or edema. Pleural spaces: Unremarkable. No pleural effusion. No pneumothorax. Heart/Mediastinum: Unremarkable. No cardiomegaly. No mediastinal widening or hilar enlargement. Bones/joints: Unremarkable. IMPRESSION: No radiographically acute cardiopulmonary process.
[2025-05-08 21:36] LABS: Hematocrit 40.9 % (37.0-47.0); Hemoglobin 13.8 g/dL (12.2-16.2); Immature Granulocytes % 0.4 %; Mean Corpuscular HGB Conc 33.7 g/dL (31.8-35.4); Mean Corpuscular Hemoglobin 27.8 pg (27.0-31.2); Mean Corpuscular Volume 82.3 fl (81-99); Nucleated Red Blood Cells % 0 %; Platelet Count 366 K/mm3 (142-424); Red Blood Count 4.97 M/mm3 (4.20-5.40); Red Cell Distribution Width-SD 39.0 fL; White Blood Count 13.4 K/mm3 (4.8-10.8)
[2025-05-08] MEDS: ASPIRIN 325MG TABLET 325 MG PO (21:36)
[2025-05-08 21:46] LABS: HCG Qualitative, Serum Negative (Negative)
[2025-05-08 21:47] LABS: Alanine Aminotransferase 22 U/L (12-78); Albumin Level 4.6 g/dl (3.5-5.0); Albumin/Globulin Ratio 1.4 (1.1-1.8); Alkaline Phosphatase 97 U/L (38-126); Anion Gap 14.7 mEq/L (5-15); Aspartate Amino Transferase 31 U/L (14-36); Bilirubin,Total 0.6 mg/dl (0.2-1.3); Blood Urea Nitrogen 10 mg/dl (7-17); Calcium 9.2 mg/dl (8.4-10.2); Carbon Dioxide 28 mmol/L (22.0-30.0); Chloride 100 mmol/L (98-107); Creatinine Clearance Estimated 93 mL/min (50-200); Creatinine,Serum 1.10 mg/dl (0.52-1.04); Estimated Glomerular Filt Rate 57 ml/min (>60); GFR (African American) 69 ML/MIN (>60); Globulin 3.4 g/dL (1.3-3.2); Glucose 87 mg/dl (74-100); Lipase 67 U/L (23-300); Potassium 3.7 mmoL/L (3.5-5.1); Sodium 139 mmol/L (136-145); Total Protein,Serum 8.0 g/dl (6.3-8.2)
--- NOTE | 2025-05-08 21:47 | ED_ITS ---
Discharge Plan Disposition Patient Disposition: Home, Self-Care Prescriptions Prescriptions: No Action dextroamphetamine-amphetamine [Adderall] 20 mg tablet 20 mg PO BID Rx Instructions: administer doses at least 4-6 hours apart mupirocin 2 % ointment 1 applic topical TID Qty: 50 0RF sulfamethoxazole-trimethoprim [Bactrim DS] 800-160 mg tablet 1 tab PO BID 10 Days Qty: 20 0RF amitriptyline 25 mg tablet 25 - 50 mg PO HS Patient Comments: TAKE 1 TO 2 TABLETS BY MOUTH EVERY NIGHT Nurtec ODT 75 mg tablet,disintegrating 75 mg PO DAILYP PRN (Reason: Migraine Headache) Ajovy Autoinjector 225 mg/1.5 mL auto-injector 225 mg SQ MONTHLY Referrals Follow up/Referrals: Provider,Referral, MD [Primary Care Provider, Medical] - See instructions Activity Restrictions/Add. Instructions Additional Instructions/Restrictions: Please follow-up with your primary care provider. Please return to the emergency department if you develop any new or worsening symptoms or become concerned for your health. Clinical Impressions Clinical Impression: Chest pain Qualifiers: Chest pain type: unspecified Qualified Code(s): R07.9 - Chest pain, unspecified Print Language Print Language: Sierra Leonean Discharge ED Provider: Pj Cortez General Adult HPI <Leydi Albrecht DO - Last Filed: 05/08/25 23:54> General Chief complaint: Chest Pain Stated complaint: Chest Pain Time Seen by Provider: 05/08/25 21:30 Mode of Arrival: Ambulatory Source of Information: Patient Description of Symptoms (Recalled from ER Triage Doc. by RN): Pt presents for evaluation of burning in her ears that radiates down into her chest that began approx 1 hour ago while sitting watching TV. Pt reports pain in chest now feeling like tightness and pressure Pt reports associated SOA, denies N/V. History of Present Illness HPI narrative: Patient is an otherwise healthy 34-year-old female who presents to the emergency department with chest pain that started a couple of hours prior to arrival. Patient states that she was sitting on the couch when it started. Patient states her pain is in the center of her chest tightness in nature that is nonradiating. Has had some shortness of breath over the last month is reporting shortness of breath at rest. Patient denies any nausea or vomiting patient denies any abdominal pain. Patient denies any recent fevers. Patient has not had any upper respiratory symptoms. Patient states that she took her Adderall a couple hours ago but does not take any other daily medications. Patient states that her heart rate does stay mildly elevated but she is unsure what her typical heart rate is. Patient denies any recent long travel, patient denies any hemoptysis, patient denies any prior blood clots. Related Data Home Medications ?Medication ?Instructions ?Recorded ?Confirmed dextroamphetamine-amphetamine 20 20 mg PO BID 06/25/23 10/04/24 mg tablet (Adderall) amitriptyline 25 mg tablet 25 - 50 mg PO HS 08/23/24 0 10/04/24 fremanezumab-vfrm 225 mg/1.5 mL 225 mg SQ MONTHLY 08/1310/04/24 subcutaneous auto-injector (Ajovy) rimegepant 75 mg disintegrating 75 mg PO DAILYP PRN Mi graine 08/23/24 10/04/24 tablet (Nurtec ODT) Headache Previous Rx's ?Medication ?Instructions ?Recorded mupirocin 2 % topical ointment 1 applic topical TID #5 0 grams 10/04/24 sulfamethoxazole 800 1 tab PO BID 10 days #20 tab s 10/04/24 mg-trimethoprim 160 mg tablet (Bactrim DS) Allergies Allergy/AdvReac Type Severity Reaction Status Date / Time doxycycline Allergy Unknown Verified 10/03/24 10:22 allergy reaction levofloxacin (From Levaquin) Allergy Unknown Verified 10/03/24 10:22 allergy reaction [facility] <Leydi Albrecht, DO - Last Filed: 05/08/25 23:54> [facility] Disclaimer: The information contained in this section may have been updated after the patient was seen, as this information can be updated by other users. Medical History Cellulitis of nose Acute carpal tunnel syndrome bilateral Adenomatous polyp of cervix Surgical History [place] teeth removed History of removal of cyst X 4 H/O tubal ligation History of right knee surgery Family History Other Anemia Asthma Diabetes Heart attack Hyperlipidemia Hypertension Stroke Thyroid disorder Tuberculosis Social History Smoking Status: Never smoker alcohol intake: never substance use type: denies use current occupational status: unemployed Travel in the last 8 weeks?: None household members: spouse housing: house current occupational exposures/hazards: No caffeine: Yes Have you lived/traveled outside US in past 30 days?: No Contact w/someone who lives/traveled outside US past 30 days?: No Exposure to someone with infectious disease in past 14 days?: No Do you have a fever (greater than 100.4 F or 38 C)?: No Have you tested positive for COVID-19?: No Exposed to someone with COVID-19 in past 14 days?: No Do you have a sore throat?: No Do you have a cough?: No Do you have any weakness?: No Do you have any diarrhea?: No Are you experiencing any unusual bleeding?: No Do you have any muscle aches/pain?: No Do you have any abdominal pain?: No Are you experiencing loss of taste or smell?: No Other Medical History Have you received the Flu Vaccine for this season: No Have you received the Pneumonia Vaccine: No <Leydi Albrecht, - Last Filed: 05/08/25 23:54> ROS Obtained: Yes All systems reviewed & no additional complaints except as documented and Yes Systems reviewed as appropriate & no additional complaints except as documented Physical Exam <Leydi Albrecht DO - Last Filed: 05/08/25 23:54> General General appearance: alert and in no apparent distress Head Head exam: atraumatic, normocephalic and normal inspection Eye Eye exam: Present normal appearance, PERRL and EOMI; Absent scleral icterus ENT ENT exam: Present normal exam and normal external ear exam Neck Neck exam: Present normal inspection and full ROM Chest Chest inspection: Present normal inspection and symmetric chest wall rise Respiratory Respiratory exam: Present normal lung sounds bilaterally; Absent respiratory distress or wheezes Cardiovascular Cardiovascular exam: Present normal rhythm, tachycardia and normal heart sounds Abdominal Exam Abdominal exam: Present soft and distention; Absent tenderness, guarding or rebound Extremities Exam Extremities exam: Present normal inspection and full ROM Back Exam Back exam: Present normal inspection and full ROM Neurological Exam Neurological exam: Present alert and oriented X3 Psychiatric Psychiatric exam: Present normal affect and normal mood Skin Skin exam: Present warm and dry Medical Decision Making <Leydi Ambrocio, DO - Last Filed: 05/08/25 23:54> Medical Records Medical records reviewed: Yes I reviewed the patient's medical records. Screening: Per USPSTF and CDC recommendations, given the prevalence of disease in our region, it is our hospital?s policy to screen for HIV and viral Hepatitis for all patients aged 18 and over and those with ongoing risk factors. Smooth Inquiry Pt receiving controlled substance: No Vital Signs: 05/08/25 21:25 05/08/25 21:29 05/08/25 22:00 Temperature 98.7 F Temperature Source Oral Pulse Rate 121 H 103 H Pulse Rate [Radial] 121 H Respiratory Rate 16 18 Blood Pressure 118/74 Blood Pressure [Right Arm] 136/86 Blood Pressure Mean Blood Pressure Mean [Right Arm] 102 Blood Pressure Position [Right Arm] Sitting 02 Sat by Pulse Oximetry 99 99 Oxygen Delivery Method Room Air 05/08/25 22:20 05/08/25 22:30 05/08/25 23:01 Temperature Temperature Source Pulse Rate 98 H 99 H Pulse Rate [Radial] Respiratory Rate 19 12 Blood Pressure 117/72 101/64 L 118/76 Blood Pressure [Right Arm] Blood Pressure Mean 82 Blood Pressure Mean [Right Arm] Blood Pressure Position [Right Arm] 02 Sat by Pulse Oximetry 96 100 Oxygen Delivery Method 05/08/25 23:30 05/09/25 00:01 05/09/25 00:31 Temperature Temperature Source Pulse Rate 93 H 84 86 Pulse Rate [Radial] Respiratory Rate 20 18 20 Blood Pressure 118/74 111/56 L 100/55 L Blood Pressure [Right Arm] Blood Pressure Mean Blood Pressure Mean [Right Arm] Blood Pressure Position [Right Arm] 02 Sat by Pulse Oximetry 97 97 98 Oxygen Delivery Method Lab Data Lab results reviewed: Yes I reviewed the patient's lab results. Lab Results 05/08/25 21:24: WBC 13.4 H, RBC 4.97, Hgb 13.8, Hct 40.9, MCV 82.3, MCH 27.8, MCHC 33.7, RDW 13.0, Plt Count 366, MPV 8.6, Neut % (Auto) 64.2, Lymph % (Auto) 27.0, [place] % (Auto) 6.5, Eos % (Auto) 1.5, Baso % (Auto) 0.4, Neut # (Auto) 8.6 H, Lymph # (Auto) 3.6, [place] # (Auto) 0.9, Eos # (Auto) 0.2, Baso # (Auto) 0.1, D -Dimer 0.79 H, Sodium 139, Potassium 3.7, Chloride 100, Carbon Dioxide 28, Anion Gap 14.7, BUN 10, Creatinine 1.10 H, Estimated Creat Clear 93, Estimated GFR 57 L, Est GFR ( Amer) 69, Glucose 87, Calcium 9.2, Total Bilirubin 0.6, AST 31, ALT 22, Alkaline Phosphatase 97, Troponin I < 0.01, Total Protein 8.0, Albumin 4.6, Globulin 3.4 H, Albumin/Globulin Ratio 1.4, Lipase 67, TSH 0.08 L, Free T4 1.31, Serum HCG, Qual Negative 05/09/25 00:00: SARS-CoV-2 (PCR) Not detected, Influenza A Untype (PCR) Not detected, Influenza Type B (PCR) Not detected 05/09/25 00:05: Troponin I < 0.01 05/08/25 21:24 05/08/25 21:24 Orders (Tests/Meds): ED MEDICATIONS Discontinued Medications Generic Name Dose Route Start Last Admin Trade Name Freq PRN Reason Stop Dose Admin Acetaminophen 1,000 mg 05/08/25 23:50 05/08/25 23:55 Acetaminophen 500mg Tab PO 05/08/25 23:51 1,000 mg ONCE ONE Administration Aspirin 325 mg 05/08/25 21:31 05/08/25 21:36 Aspirin 325mg Tablet PO 05/08/25 21:32 325 mg ONCE ONE Administration Sodium Chloride 1,000 mls @ 999 mls/hr 05/08/25 21:58 05/08/25 23:07 Sod Chlor 0.9% 1000ml Bag IV 05/08/25 22:58 Infused .Q1H1M ONE Infusion Ketorolac Tromethamine 30 mg 05/08/25 23:50 05/08/25 23:55 Ketorolac 30mg/Ml Vial IV 05/08/25 23:51 30 mg ONCE ONE Administration ORDERS Category Date Time Status CXR 2 view (NOT portable) [XR chest 2V] Stat Exams 05/08/25 21:30 Completed CBC w/Auto Diff [Complete Blood Count Auto Diff] Stat Lab 05/08/25 21:24 Completed CMP [Comprehensive Metabolic Panel] Stat Lab 05/08/25 21:24 Completed D-Dimer Stat Lab 05/08/25 21:24 Completed Free T4 (Free Thyroxine) Stat Lab 05/08/25 21:24 Completed HCG Qualitative, Serum Stat Lab 05/08/25 21:24 Completed Lipase Stat Lab 05/08/25 21:24 Completed Rapid PCR Covid and Flu A/B Stat Lab 05/09/25 00:00 Completed TSH [Thyroid Stimulating Hormone] Stat Lab 05/08/25 21:24 Completed Trop I [Troponin I] Stat Lab 05/08/25 21:24 Completed Troponin I Q3H Lab 05/09/25 00:05 Completed Troponin I Q3H Lab 05/09/25 03:30 Ordered Medical Decision Narrative: Patient is a 34-year-old female with no significant past medical history except for ADHD on Adderall who presented to the emergency department with chest pain. On arrival, patient was tachycardic but vital signs were otherwise unremarkable. Differential includes but not limited to: Pulmonary embolism, ACS/IA, thyroid disease, anxiety, pancreatitis, pneumonia, costochondritis, myocarditis, amongst others. Patient's EKG was reviewed and interpreted by myself and showed sinus tachycardia without acute ST or T wave changes concerning for ischemia Patient's labs were reviewed and interpreted by myself, CBC showed a mild leukocytosis of 13, otherwise unremarkable. D-dimer elevated at 0.79. Creatinine mildly elevated at 1.10, baseline 0.90. Initial troponin less than 0.01. TSH 0.08 but free T4 normal. test negative. X-ray was reviewed and interpreted by myself and showed no focal intolerance, pneumothorax, pleural effusion or other acute cardiopulmonary process. Patient was initially treated in the emergency department with aspirin, IV fluids. On reassessment, patient continued to have some pain, patient was given Toradol and Tylenol given that patient reported some chills. Patient states that she has had a recent family member with flu and would like to be tested. Respiratory swab was ordered. Patient did have a mildly elevated D-dimer however patient is negative for pulmonary embolism per years criteria. Given that patient's pain started 2 hours prior to arrival, patient is pending second troponin at this time. Patient was signed out to the oncoming provider Pj Cortez pending second troponin and final disposition. <Pj Cortez MD - Last Filed: 05/09/25 01:13> Vital Signs: 05/08/25 21:25 05/08/25 21:29 05/08/25 22:00 Temperature 98.7 F Temperature Source Oral Pulse Rate 121 H 103 H Pulse Rate [Radial] 121 H Respiratory Rate 16 18 Blood Pressure 118/74 Blood Pressure [Right Arm] 136/86 Blood Pressure Mean Blood Pressure Mean [Right Arm] 102 Blood Pressure Position [Right Arm] Sitting 02 Sat by Pulse Oximetry 99 99 Oxygen Delivery Method Room Air 05/08/25 22:20 05/08/25 22:30 05/08/25 23:01 Temperature Temperature Source Pulse Rate 98 H 99 H Pulse Rate [Radial] Respiratory Rate 19 12 Blood Pressure 117/72 101/64 L 118/76 Blood Pressure [Right Arm] Blood Pressure Mean 82 Blood Pressure Mean [Right Arm] Blood Pressure Position [Right Arm] 02 Sat by Pulse Oximetry 96 100 Oxygen Delivery Method 05/08/25 23:30 05/09/25 00:01 05/09/25 00:31 Temperature Temperature Source Pulse Rate 93 H 84 86 Pulse Rate [Radial] Respiratory Rate 20 18 20 Blood Pressure 118/74 111/56 L 100/55 L Blood Pressure [Right Arm] Blood Pressure Mean Blood Pressure Mean [Right Arm] Blood Pressure Position [Right Arm] 02 Sat by Pulse Oximetry 97 97 98 Oxygen Delivery Method Lab Data Lab Results 05/08/25 21:24: WBC 13.4 H, RBC 4.97, Hgb 13.8, Hct 40.9, MCV 82.3, MCH 27.8, MCHC 33.7, RDW 13.0, Plt Count 366, MPV 8.6, Neut % (Auto) 64.2, Lymph % (Auto) 27.0, [place] % (Auto) 6.5, Eos % (Auto) 1.5, Baso % (Auto) 0.4, Neut # (Auto) 8.6 H, Lymph # (Auto) 3.6, [place] # (Auto) 0.9, Eos # (Auto) 0.2, Baso # (Auto) 0.1, D -Dimer 0.79 H, Sodium 139, Potassium 3.7, Chloride 100, Carbon Dioxide 28, Anion Gap 14.7, BUN 10, Creatinine 1.10 H, Estimated Creat Clear 93, Estimated GFR 57 L, Est GFR ( Amer) 69, Glucose 87, Calcium 9.2, Total Bilirubin 0.6, AST 31, ALT 22, Alkaline Phosphatase 97, Troponin I < 0.01, Total Protein 8.0, Albumin 4.6, Globulin 3.4 H, Albumin/Globulin Ratio 1.4, Lipase 67, TSH 0.08 L, Free T4 1.31, Serum HCG, Qual Negative 05/09/25 00:00: SARS-CoV-2 (PCR) Not detected, Influenza A Untype (PCR) Not detected, Influenza Type B (PCR) Not detected 05/09/25 00:05: Troponin I < 0.01 Orders (Tests/Meds): ED MEDICATIONS Discontinued Medications Generic Name Dose Route Start Last Admin Trade Name Freq PRN Reason Stop Dose Admin Acetaminophen 1,000 mg 05/08/25 23:50 05/08/25 23:55 Acetaminophen 500mg Tab PO 05/08/25 23:51 1,000 mg ONCE ONE Administration Aspirin 325 mg 05/08/25 21:31 05/08/25 21:36 Aspirin 325mg Tablet PO 05/08/25 21:32 325 mg ONCE ONE Administration Sodium Chloride 1,000 mls @ 999 mls/hr 05/08/25 21:58 05/08/25 23:07 Sod Chlor 0.9% 1000ml Bag IV 05/08/25 22:58 Infused .Q1H1M ONE Infusion Ketorolac Tromethamine 30 mg 05/08/25 23:50 05/08/25 23:55 Ketorolac 30mg/Ml Vial IV 05/08/25 23:51 30 mg ONCE ONE Administration ORDERS Category Date Time Status CXR 2 view (NOT portable) [XR chest 2V] Stat Exams 05/08/25 21:30 Completed CBC w/Auto Diff [Complete Blood Count Auto Diff] Stat Lab 05/08/25 21:24 Completed CMP [Comprehensive Metabolic Panel] Stat Lab 05/08/25 21:24 Completed D-Dimer Stat Lab 05/08/25 21:24 Completed Free T4 (Free Thyroxine) Stat Lab 05/08/25 21:24 Completed HCG Qualitative, Serum Stat Lab 05/08/25 21:24 Completed Lipase Stat Lab 05/08/25 21:24 Completed Rapid PCR Covid and Flu A/B Stat Lab 05/09/25 00:00 Completed TSH [Thyroid Stimulating Hormone] Stat Lab 05/08/25 21:24 Completed Trop I [Troponin I] Stat Lab 05/08/25 21:24 Completed Troponin I Q3H Lab 05/09/25 00:05 Completed Troponin I Q3H Lab 05/09/25 03:30 Ordered Medical Decision Narrative: Patient is a 34-year-old female with no significant past medical history except for ADHD on Adderall who presented to the emergency department with chest pain. On arrival, patient was tachycardic but vital signs were otherwise unremarkable. Differential includes but not limited to: Pulmonary embolism, ACS/IA, thyroid disease, anxiety, pancreatitis, pneumonia, costochondritis, myocarditis, amongst others. Patient's EKG was reviewed and interpreted by myself and showed sinus tachycardia without acute ST or T wave changes concerning for ischemia Patient's labs were reviewed and interpreted by myself, CBC showed a mild leukocytosis of 13, otherwise unremarkable. D-dimer elevated at 0.79. Creatinine mildly elevated at 1.10, baseline 0.90. Initial troponin less than 0.01. TSH 0.08 but free T4 normal. test negative. X-ray was reviewed and interpreted by myself and showed no focal intolerance, pneumothorax, pleural effusion or other acute cardiopulmonary process. Patient was initially treated in the emergency department with aspirin, IV fluids. On reassessment, patient continued to have some pain, patient was given Toradol and Tylenol given that patient reported some chills. Patient states that she has had a recent family member with flu and would like to be tested. Respiratory swab was ordered. Patient did have a mildly elevated D-dimer however patient is negative for pulmonary embolism per years criteria. Given that patient's pain started 2 hours prior to arrival, patient is pending second troponin at this time. Patient was signed out to the oncoming provider Pj Cortez pending second troponin and final disposition. Dana RAYMUNDO: I assumed care of the patient at the time of handoff from the prior provider. On reassessment patient remains hemodynamically stable. Reports mild symptomatic improvement. Repeat troponin returns undetectably low, COVID flu swab is negative. Given this, low concern for cardiac or emergent pathology at this time. Patient's symptoms may be consistent with developing viral illness or possibly GERD/esophagitis. She was discharged in stable condition with return precautions and instructions regarding symptomatic care. Critical Care <Leydi Albrecht DO - Last Filed: 05/08/25 23:54> Critical Care Time Critical Care Time: No
--- OUTSIDE RECORDS SUMMARY | 2025-05-08 21:47 | XMS_ITS | Clinical Summary ---
Author Organization [facility] Address [address] [place] [address] Care Team Providers Care Junior Analyst Name Role Phone Nhan Gunderson Primary Care Provider [phone] Allergies Active Allergy Reactions Criticality Noted Date Comments Ciprofloxacin Rash Low 07/23/2020 Doxycycline Nausea And Vomiting Low 02/25/2012 Sumatriptan Other (See Comments) Medium 11/18/2021 HTN Ofloxacin Other (See Comments) Low 02/25/2023 Burning in the eyes. This is in the same class as Cipro. Do not prescribe. Medications * This document contains information received from the source organization and may not represent a complete record from that organization. albuterol sulfate HFA 108 (90 Base) MCG/ACT inhaler Inhale 2 puffs Every 4 (Four) Hours As Needed for Shortness of Air. 18 g 10/28/19 21 Active naproxen (Naprosyn) 500 MG tabletIndications: Pain of right thumb Take 1 tablet by mouth 2 (Two) Times a Day With Meals. 60 tablet 05/01/20 24 Active Proctofoam HC 1-1 % rectal foamIndications:He morrhoids, unspecified hemorrhoid type INSERT 1 APPLICATION INTO RECTUM TWICE A DAY 10 g 1 07/06/20 24 Active Additional Information Patient not taking.Reported on 03/23/2025 Fremanezumab-vfrm 225 MG/1.5ML solution auto-injector Inject 225 mg under the skin into the appropriate area as directed Every 28 (Twenty-Eight) Days. 1.5 mL 11 02/20/20 25 Active rimegepant sulfate ODT (Nurtec) [address] 1 tablet under the tongue Every Other Day. 48 tablet 3 04/17/2025 12:51 PM EDT 02/20/20 25 Active amphetamine-dextro amphetamine (ADDERALL) 20 MG tabletIndications: Attention deficit hyperactivity disorder, combined type Take 1 tablet by mouth 2 (Two) Times a Day. 60 tablet 03/22/20 25 Active amitriptyline (ELAVIL) 25 MG tabletIndications: Insomnia, unspecified type Take 1-2 tablets by mouth Every Night. 120 tablet 2 03/22/20 25 Active Active Problems Problem Noted Date Diagnosed Date Attention deficit hyperactivity disorder, combin ed type 03/22/2025 Insomnia 07/02/2022 Binge eating disorder 07/02/2022 Migraine without aura and wi thout status migrainosus, not intractable 11/18/2021 Assessment & Plan (03/23/2025 2:24 PM EDT): MALCOLM controlled on Ajovy 225 mg sq q 4 weeks. Nurtec 75 mg qod Assessment & Plan (02/14/2024 11:25 AM EDT): Attempt to switch to Ajovy Continue Nurtec Assessment & Plan (05/20/2022 2:01 PM EDT): Headaches are worsening. Medication changes per orders. Add Nurtec qody Continue Ajovy Assessment & Plan (11/18/2021 3:02 PM EST): Headaches are worsening. Medication changes per orders. Start Ajovy 225 mg SC Q28 days. First dose given today in office. Start Ubrelvy 100 mg PO PRN for migraine, may take one dose at onset and repeat once in 2 hours if needed. Max 2 doses in 24 hours Will obtain MRI records from [facility] F/U in 8 weeks or sooner if needed Acute pain of right knee 06/21/2018 Instability of knee joint, right 06/21/2018 Pleuritic chest pain 12/09/2017 Cough, persistent 12/09/2017 Excessive daytime sleepiness 10/22/2017 Snoring 10/22/2017 Vitamin D deficiency disease 10/22/2017 Encounters * This document contains information received from the source organization and may not represent a complete record from that organization. Date Type Department Care Team Description 03/23/2025 2:15 PM EDT Office Visit [facility] [address] [facility] [address] [place] [phone] Gini Maxwell MD Migraine without aura and without status migrainosus, not intractable (Primary Dx) 03/23/2025 Travel 02/09/2025 Telephone [facility] [address] [facility] [address] [place] [phone] WINKLEY - APPT QUESTION from Last 3 Months Immunizations Immunization Administration Dates Next Due Tdap 03/22/2020 Family History Medical History Relation Name Comments ADD / ADHD Cousin Not sure their is any in my family No Known Problems Father Hyperlipidemia Mother Kris green Hypertension Mother Kris green Migraines Mother Kris green Migraines Sister Dianna green Relation Name Status Comments Cousin Not sure their is any in my family Alive Father Alive Mother Kris green Alive Sister Dianna green Social History Tobacco Use Types Packs/Day Years [...] on file Sexual Orientation Not on file Last Filed Vital Signs Vital Sign Reading Time Taken Comments Blood Pressure 122/80 03/23/2025 2:05 PM EDT Pulse 95 03/23/2025 2:05 PM EDT Temperature 36.6 C (97.8 F) 06/05/2024 12:43 PM EDT Respiratory Rate 18 06/05/2024 12:43 PM EDT Oxygen Saturation 99% 03/23/2025 2:05 PM EDT Inhaled Oxygen Concentration - - Weight 92.5 kg (204 lb) 03/23/2025 2:05 PM EDT Height 149.9 cm (4' 11.02 ) 03/23/2025 2:05 PM E DT Body Mass Index 41.18 03/23/2025 2:05 PM EDT Plan of Treatment Upcoming Encounters Date Type Department Care Team (Late st Contact Info) Description 03/22/2026 3:30 PM EDT Office Visit [facility]YCHIATRIC NEUROLOGY [address] [place] [phone] Gini Maxwell MD [address] [place] [address] Health Maintenance Due Date Last Done Comments Annual Gynecologic Pelvic an d Breast Exam 1990 PAP SMEAR 2011 ANNUAL PHYSICAL 09/23/2017 COVID-19 Vaccine ( - 2023-2 5 season) 2024 INFLUENZA VACCINE 06/13/2025 TDAP/TD VACCINES (2 - Td or Tdap) 03/22/2030 020 HEPATITIS C SCREENING Completed 09/17/2016 Pneumococcal Vaccine 0-49 Aged Out No longer eligible based on patient's age to complete this topic Goals Goal Patient Goal Type Associated Problems Recent Progress Patient-Stated? Author Specialty Pharmacy General Goal General On track( 025 3:10 PM EDT) Yuly Vera, PharmD Note: On Average, Reduce: Frequency of [...] monthly if she doesn't get enough sleep. Insurance [facility] PPO Care Teams Junior Analyst Relationship Specialty Start Date End Date Nhan Gunderson PA [address] [place] [address] PCP - General Physician Manager Games 09/23/21
--- OUTSIDE RECORDS SUMMARY | 2025-05-08 21:47 | XMS_ITS | Encounter Summary ---
Author Organization [facility] Address [address] [place] [id number] Care Team Providers Care Speech Scientist Name Role Phone Nhan Gunderson Primary Care Provider [phone] Reason for Visit * Reason Comments Med Refill Encounter Details Date Type Department Care Team (Late Contact Info) Description 08/12/2021 Refill [facility] [address] [place] [address] Africa Gill, [facility] [address] [place] [address] Obesity (BMI 35.0-39.9 without comorbidity) Social History Tobacco Use Types Packs/Day Years Used Date Smoking Tobacco: Former Cigarettes 1 2 Smokeless Tobacco: Never Comments:quit 5 years ago Alcohol Use Standard Drinks/Week Comments No 0 (1 standard drink = 0.6 oz pur e alcohol) Comments Unknown Sex and Gender Information Value Date Recorded Sex Assigned at Not on file Legal Sex Female 1:01 PM EST Gender Identity Not on file Sexual Orientation Not on file documented as of this encounter Plan of Treatment Upcoming Encounters Date Type Department Care Team (Late Contact Info) Description 03/22/2026 3:30 PM EDT Office Visit [facility] [address] [facility] [address] [place] [address] Ramin Maxwell MD [address] [facility] [address] [place] [address] documented as of this encounter Visit Diagnoses Diagnosis Obesity (BMI 35.0-39.9 without comorbidity) documented in this encounter Care Teams Speech Scientist Relationship Specialty Start Date End Date Nhan Gunderson PA [address] [place] [address] PCP - General Physician Data Modeling Specialist 09/23/21 documented as of this encounter
--- OUTSIDE RECORDS SUMMARY | 2025-05-08 21:47 | XMS_ITS | Encounter Summary ---
Author Organization Healthcare Address [address] [place] [address] Care Team Providers Care Consumer Science Teacher Name Role Phone Per Patient, None Primary Care Provider Unavaila ble Encounter Details Date Type Department Care Team ([facility] st Contact Info) Description 08/14/2021 Outside Procedure External Location [address] [place] [address] Rafael Singleton MD [address] [place] [address] Social History Tobacco Use Types Packs/Day Years Used Date Smoking Tobacco: Every Day Alcohol Use Standard Drinks/Week Comments Yes 0 (1 standard drink = 0.6 oz pur e alcohol) Comments No Sex and Gender Information Value Date Recorded Sex Assigned at Not on file Legal Sex Female 8:22 PM EDT Gender Identity Not on file Sexual Orientation Not on file COVID-19 Exposure Response Date Recorded In the last month, have you been in contact with someone who was confirmed or suspected to have Coronavirus / COVID-19? No / Unsure 07/24/2021 2:41 PM EST documented as of this encounter Miscellaneous Notes * Result Encounter Note - Bernie Moses MA - 08/14/2021 11:59 PM EST Can you enter the referral documented in this encounter Plan of Treatment Not on file documented as of this encounter Procedures Procedure Name Priority Date/Time Associated Diagnosis Comments CT ABDOMEN PELVIS WO IV CONTRAST 08/14/2021 2:39 PM EST documented in this encounter Results * CT Abdomen Pelvis wo IV Contrast (08/14/2021 2:39 PM EST) Anatomical Region Laterality Modality Abdomen, Pelvis Computed Tomogra phy 08/14/2021 2:39 PM EST Narrative 08/15/2021 11:46 [place] [address] Name: ASHLEY FISCHER Exam Date: 08/14/2021 : 1990 Age 31 Gender: F Physician: RAFAEL SINGLETON Facility: [facility] Facility HSV: Outpatient Exam: CT ABD PEL W/O EXAM: CT ABDOMEN AND PELVIS WITHOUT IV CONTRAST INDICATION: Findings displaced tubal clip TECHNIQUE: The patient was not injected with IV contrast. Oral contrast was not administered. Axial images were obtained from the lung bases to the pubic symphysis by computed tomography. This study was performed with techniques to keep radiation doses as low as reasonably achievable, (ALARA). Individualized dose reduction techniques using automated exposure control or adjustment of mA and/or kV according to the patient size were employed. COMPARISON: None FINDINGS: LUNG BASES: Clear. LIVER: Grossly unremarkable GALLBLADDER/BILIARY TREE: Unremarkable SPLEEN: No splenomegaly. ADRENAL GLANDS: Unremarkable. PANCREAS: Grossly unremarkable KIDNEYS: No stones. No Hydronephrosis. BOWEL: No small bowel dilatation. No colonic dilation. PERITONEUM/RETROPERITONEUM: No free fluid. No free air. LYMPH NODES: No retroperitoneal adenopathy. No mesenteric adenopathy. BLADDER: Unremarkable REPRODUCTIVE ORGANS: Previous left tubal clip is not visualized. The right tubal clip is displaced superiorly and now located anterior to the cecum. Uterus and ovaries are otherwise grossly unremarkable. VASCULAR: No aortic aneurysm. No iliac aneurysm. BONES: No suspicious osseous lesion. SOFT TISSUES: No suspicious mass. IMPRESSION: 1. Previous left tubal clip is no longer visualized. The right tubal clip is displaced superiorly, now located anterior to the cecum and right lower quadrant. 2. No acute abdominopelvic pathology. Dictated By: Pop Arais Legally authenticated by VALENTINO BHANDARI 2021-08-15 11:35:31 Transcribed By: Pop Mcdermott Transcribed On: 08/15/2021 11:35 AM Electronically signed by: Pop Arias 08/15/2021 Thank you for referring ASHLEY FISCHER to [facility]. Legally authenticated by VALENTINO BHANDARI 2021-08-15 11:35:31 Procedure Note Provider, Generic Gilmore - 08/15/2021 [place] [id number] [place] [address] Name: ASHLEY FISCHER Exam Date: 08/14/2021 : 1990 Age 31 Gender: F Physician: RAFAEL SINGLETON Facility: [facility] Facility HSV: Outpatient Exam: CT ABD PEL W/O EXAM: CT ABDOMEN AND PELVIS WITHOUT IV CONTRAST INDICATION: Findings displaced tubal clip TECHNIQUE: The patient was not injected with IV contrast. Oral contrastwas not administered. Axial images were obtained from the lung bases to thepubic symphysis by computed tomography. This study was performed with techniquesto keep radiation doses as low as reasonably achievable, (ALARA).Individualized dose reduction techniques using automated exposure control or adjustmentof mA and/or kV according to the patient size were employed. COMPARISON: None FINDINGS: LUNG BASES: Clear. LIVER: Grossly unremarkable GALLBLADDER/BILIARY TREE: Unremarkable SPLEEN: No splenomegaly. ADRENAL GLANDS: Unremarkable. PANCREAS: Grossly unremarkable KIDNEYS: No stones. No Hydronephrosis. BOWEL: No small bowel dilatation. No colonic dilation. PERITONEUM/RETROPERITONEUM: No free fluid. No free air. LYMPH NODES: No retroperitoneal adenopathy. No mesenteric adenopathy. BLADDER: Unremarkable REPRODUCTIVE ORGANS: Previous left tubal clip is not visualized. Theright tubal clip is displaced superiorly and now located anterior to thececum. Uterus and ovaries are otherwise grossly unremarkable. VASCULAR: No aortic aneurysm. No iliac aneurysm. BONES: No suspicious osseous lesion. SOFT TISSUES: No suspicious mass. IMPRESSION: 1. Previous left tubal clip is no longer visualized. The right tubal clipis displaced superiorly, now located anterior to the cecum and right lower quadrant. 2. No acute abdominopelvic pathology. Dictated By: Pop Arias Legally authenticated by VALENTINO BHANDARI 2021-08-15 11:35:31 Transcribed By: Pop Mcdermott Transcribed On: 08/15/2021 11:35 AM Electronically signed by: Pop Arias 08/15/2021 Thank you for referring ASHLEY FISCHER to [facility]. Legally authenticated by VALENTINO BHANDARI 2021-08-15 11:35:31 Rafael Singleton MD IMG CT PROCEDURES Final Result documented in this encounter Visit Diagnoses Not on filedocumented in this encounter Care Teams Consumer Science Teacher Relationship Specialty Start Date End Date Per Patient, [place] [address] PCP - General 07/08/21 documented as of this encounter
--- OUTSIDE RECORDS SUMMARY | 2025-05-08 21:47 | XMS_ITS | Clinical Summary ---
Author Organization [facility] Address [address] [place] [place] [address] Phone Care Team Providers Care Transaction Manager Name Role Phone Nonstaff, Referring Primary Care Provider Daja bermudez Allergies Active Allergy Reactions Criticality Noted Date Comments Doxycycline Nausea And Vomiting 02/25/2012 Medications CLOMIPHENE CITRATE (CLOMID ORAL) Take by mouth. Active Active Problems No known active problems Surgical History Surgery Date Site/Laterality Comments DILATION AND CURETTAGE OF UTERUS after miscarriage at age 18 Social History Tobacco Use Types Packs/Day Years Used Date Smoking Tobacco: Former Cigarettes 2 8 Smokeless Tobacco: Never Tobacco Cessation:Counseling Given: Yes Alcohol Use Standard Drinks/Week Comments No 0 (1 standard drink = 0.6 oz pur e alcohol) Sexually Active Control Partners Comments Yes Male Comments No Sex and Gender Information Value Date Recorded Sex Assigned at Not on file Legal Sex Female 7:57 AM EDT Gender Identity Not on file Sexual Orientation Not on file Obstetrics History Last Filed Vital Signs Vital Sign Reading Time Taken Comments Blood Pressure 130/88 02/29/2016 2:11 AM EDT Pulse 86 02/29/2016 2:11 AM EDT Temperature 36.9 C (98.4 F) 02/29/2016 2:11 AM EDT Respiratory Rate 16 02/29/2016 2:11 AM EDT Oxygen Saturation 98% 02/29/2016 2:11 AM EDT Inhaled Oxygen Concentration - - Weight 65.3 kg (144 lb) 06/04/2014 2:32 PM EDT Height 149.9 cm (4' 11 ) 04/25/2014 11:14 PM EDT Body Mass Index 29.08 04/25/2014 11:14 PM EDT Plan of Treatment Health Maintenance Due Date Last Done Comments Annual Wellness Exam 1993 DTaP/TDaP/Td (1 - Tdap) 2009 Hepatitis B Vaccine (1 of 3 - 19+ 3-dose series) 2009 COVID-19 Vaccine (2023-2 5 season) 2024 Influenza Vaccine (#1) 2025 Meningococcal B Vaccine Aged Out No l onger eligible based on patient's age to complete this topic Pneumococcal Vaccine 0-49 Aged Out No longer eligible based on patient's age to complete this topic Care Teams Transaction Manager Relationship Specialty Start Date End Date Nonstaff, Referring PCP - General 02/29/16
--- OUTSIDE RECORDS SUMMARY | 2025-05-08 21:47 | XMS_ITS | Clinical Summary ---
Author Organization [facility] Address [address] [place] [address] Care Team Providers Care Fire Investigation Lieutenant Name Role Phone Per Patient, None Primary Care Provider Unavaila ble Allergies Active Allergy Reactions Criticality Noted Date Comments Ciprofloxacin Unknown - Patient st ates they do not know rxn details Low 07/23/2020 Doxycycline Nausea And Vomiting, Other - please document in the comment field,Unknown - Patient states they do not know rxn details Low 02/25/2012 Medications buPROPion XL (Wellbutrin XL) 300 MG 24 hr tablet Take 300 mg by mouth 1 (one) time each day. Do not crush, chew, or split. Active DULoxetine (Cymbalta) [address] capsule 12/08/2021 Activ e Ajovy 225 MG/1.5ML solution auto-injector 12/10/2021 Activ e gabapentin (Neurontin) 300 MG capsule Take 300 mg by mouth every night. 11/10/2021 Active ubrogepant (Ubrelvy) 100 MG tablet Take 100 mg by mouth. 12/10/2021 Active ibuprofen 800 MG tablet Take 1 tablet (800 mg total) by mouth every 6 (six) hours if needed for mild pain. 30 tablet 12/23/2021 Active oxyCODONE (Roxicodone) 5 MG immediate release tablet Take 1 tablet (5 mg total) by mouth every 4 (four) hours if needed for moderate pain or severe pain. 10 tablet 12/23/2021 Active Active Problems Problem Noted Date Diagnosed Date Intra-abdominal foreign body 10/06/2021 Overview (10/06/2021): Added automatically from request for surgery [id number] Assessment & Plan (12/22/2021 2:42 PM EDT): We reviewed the risks, benefits and alternatives to the procedure, and written informed consent was obtained. All questions answered. Discussed that we can leave it in, as well, patient strongly prefers attempting to remove it. Assessment & Plan (10/06/2021 3:47 PM EST): Displaced is sterilization clinic, not see on recent laparoscopic bilateral salpingectomy. Patient is concerned about clip free floating in the pelvis. Desires removal. We discussed options, including leaving alone as well as laparoscopy. We discussed we can use fluoroscopy intraoperatively help us localize it. Called and spoke with Dr. Singleton, who states one ECOG clots was removed during his recent salpingectomy so will reconfirm [address] scan which confirmed location of the plate. Also reviewed prior operative notes. Surgical history of tubal ligation 07/14/2021 Care plan discussed with patient 07/14/2021 Overview (07/14/2021): Filshie Clips Migrated seen on CT scan 06/2021 Osteoarthritis of patellofemoral joint 1 Microscopic hematuria 03/17/2019 UTI symptoms 03/17/2019 Urinary hesitancy 12/26/2018 High-tone pelvic floor dysfunction 12/22/2018 Breast mass, right 11/28/2018 Encounter for female sterilization procedure Polyp of corpus uteri 09/16/2018 Menorrhagia 08/31/2018 Acute pain of right knee 06/21/2018 Instability of knee joint, right 06/21/2018 Cough, persistent 12/09/2017 Pleuritic chest pain 12/09/2017 Excessive daytime sleepiness 10/22/2017 Snoring 10/22/2017 Vitamin D deficiency disease 10/22/2017 Family History Medical History Relation Name Comments Stroke Maternal Grandfather Stroke Mother Stroke Other 1 Diabetes Other 2 Hypertension Other 3 Hyperlipidemia Other 4 Relation Name Status Comments Maternal Grandfather Mother Other 1 Other 2 Other 3 Other 4 Social History Tobacco Use Types Packs/Day Years Used Date Smoking Tobacco: Former Smokeless Tobacco: Never Tobacco Cessation:Ready to Q uit: No; Counseling Given: No Alcohol Use Standard Drinks/Week Comments Not Currently 0 (1 standard drink = 0.6 oz pur e alcohol) Comments No Sex and Gender Information Value Date Recorded Sex Assigned at Not on file Legal Sex Female 8:22 PM EDT Gender Identity Not on file Sexual Orientation Not on file Last Filed Vital Signs Vital Sign Reading Time Taken Comments Blood Pressure 132/82 03/18/2022 11:06 AM EDT Pulse 94 12/23/2021 1:50 PM EDT Temperature 36.8 C (98.2 F) 12/23/2021 1:50 PM EDT Respiratory Rate 23 12/23/2021 1:50 PM EDT Oxygen Saturation 96% 12/23/2021 1:50 PM EDT Inhaled Oxygen Concentration - - Weight 86.5 kg (190 lb 11.2 oz) 022 11:06 AM EDT Height 154.9 cm (5' 1 ) 12/22/2021 2:15 PM EDT Body Mass Index 36.03 12/22/2021 2:15 PM EDT Plan of Treatment Health Maintenance Due Date Last Done Comments [facility]-Depression Screening 1990 [facility]-Infant/Child/Adol SDOH Screenings 1990 [facility]-Varicella Vaccines (1 of 2 - 13+ 2-dose series) 2003 [facility]- SDOH Screenings 2008 [facility]-Adult SDOH Screenings 2008 [facility]-Hepatitis B Vaccines (1 of 3 - 19+ 3-dose series) 2009 [facility]-Pap Smear 2011 HPV Vaccines (1 - 3-dose SCD M series) 2017 [facility]-Cervical Cancer Screening 2020 [facility]-HPV/Cotest 2020 [id number] Vaccine (1 - 20 24-25 season) 2024 [facility]-Influenza Vaccine (#1) 2025 [facility]-DTaP,Tdap,and Td Vaccine s (2 - Td or Tdap) 03/22/2030 03/22/2020 [facility]-Zoster Vaccines (1 of 2) 2040 [facility]-HIB Vaccines Aged Out No longer e ligible based on patient's age to complete this topic [facility]-Hepatitis A Vaccines Aged Out No longer eligible based on patient's age to complete this topic [facility]-IPV Vaccines Aged Out No longer e ligible based on patient's age to complete this topic [facility]-Pneumococcal Vaccine: Pediatrics (0 to 5 Years) and At-Risk Patients (6 to 49 Years) Aged Out No long er eligible based on patient's age to complete this topic [facility]-Rotavirus Vaccines Aged Out No lo nger eligible based on patient's age to complete this topic Insurance [employer] Care Teams Fire Investigation Lieutenant Relationship Specialty Start Date End Date Per Patient, [place] [address] PCP - General 07/08/21
--- OUTSIDE RECORDS SUMMARY | 2025-05-08 21:47 | XMS_ITS | Encounter Summary ---
Author Organization Healthcare Address [address] [place] [address] Care Team Providers Care Keg Washer Name Role Phone Per Patient, None Primary Care Provider Unavaila ble Encounter Details Date Type Department Care Team ([facility] st Contact Info) Description 07/11/2021 Outside Procedure External Location [address] [place] [address] Rafael Singleton MD [address] [place] [address] Social History Tobacco Use Types [...] have Coronavirus / COVID-19? No / Unsure 07/08/2021 1:24 PM EDT documented as of this encounter Plan of Treatment Not on file documented as of this encounter Procedures Procedure Name Priority Date/Time Associated Diagnosis Comments FL HYSTEROSALPINGOGRAM 7:28 AM EDT documented in this encounter Results * FL Hysterosalpingogram (07/11/2021 7:28 AM EDT) Anatomical Region Laterality Modality Body Radiographic Chantal ging 07/11/2021 7:28 AM EDT Narrative 07/11/2021 12:12 [place] [address] Name: ASHLEY FISCHER Exam Date: 07/11/2021 : 1990 Age 30 Gender: F Physician: RAFAEL SINGLETON Facility: [facility] Facility HSV: Outpatient Exam: HYSTEROSALPINGOGRAM HYSTEROSALPINGOGRAM. HISTORY: Tubal ligation status. PROCEDURE: Contrast was instilled by the ordering physician. Spot films were performed. A total of 3 images were saved. The uterine cavity is unremarkable. There is no free spillage of contrast identified. The ligation clip previously noted in the left adnexa on a CT performed April 2019 is now within the right abdomen. Fluoroscopy time: 0.7 minutes. IMPRESSION: No free spill of contrast identified. The films were reviewed, interpreted, and dictated by Dr. Juan Stubbs Transcribed by Kristine Gibbs PA-C Dictated By: JUAN STUBBS Transcribed By: Vinny Stubbs Transcribed On: 07/11/2021 12:02 PM Electronically signed by: JUAN STUBBS 07/11/2021 Thank you for referring ASHLEY FISCHER to [facility]. Legally authenticated by EVELYNE CONKLIN 2021-07-11 12:02:11 Procedure Note Provider, Generic [place] - 07/11/2021 [place] [address] Name: ASHLEY FISCHER Exam Date: 07/11/2021 : 1990 Age 30 Gender: F Physician: RAFAEL SINGLETON Facility: [facility] Facility HSV: Outpatient Exam: HYSTEROSALPINGOGRAM HYSTEROSALPINGOGRAM. HISTORY: Tubal ligation status. PROCEDURE: Contrast was instilled by the ordering physician. Spot filmswere performed. A total of 3 images were saved. The uterine cavity isunremarkable. There is no free spillage of contrast identified. The ligation clippreviously noted in the left adnexa on a CT performed April 2019 is now within theright abdomen. Fluoroscopy time: 0.7 minutes. IMPRESSION: No free spill of contrast identified. The films were reviewed, interpreted, and dictated by Dr. Juan Stubbs Transcribed by Kristine Gibbs PA-C Dictated By: JUAN STUBBS Transcribed By: Vinny Stubbs Transcribed On: 07/11/2021 12:02 PM Electronically signed by: JUAN STUBBS 07/11/2021 Thank you for referring ASHLEY FISCHER to [facility]. Legally authenticated by EVELYNE CONKLIN 2021-07-11 12:02:11 us Rafael Singleton MD IMG FLUOROSCOPY PROCEDURES Cony l Result documented in this encounter Visit Diagnoses Not on filedocumented in this encounter Care Teams Keg Washer Relationship Specialty Start Date End Date Per Patient, [place] [address] PCP - General 07/08/21 documented as of this encounter
--- OUTSIDE RECORDS SUMMARY | 2025-05-08 21:47 | XMS_ITS ---
Author Organization [facility] Address [address] [place] [address] Care Team Providers Care Universal Banker Name Role Phone Nhan Gunderson Primary Care Provider [phone] Chronic Migraine Status:Enrolled (Active) Start date:12/10/2021 Enrollment date:12/10/2021 Enrollment reason:Referred by provider Current support & services provided:Clinical Assessment, Refill Coordination , Benefits Investigation, Prior Authorization, Copay Assistance, [facility] Dispensing Linked medications:Fremanezumab-vfrm (Active), Rimegepant Sulfate (Active) Linked problems:Migraine without aura and without status migrainosus, not intractable (Active) Case Team Name Relationship Phone Ramin Maxwell MD Consulting Physician Continued Care and Services Coordination
--- OUTSIDE RECORDS SUMMARY | 2025-05-08 21:47 | XMS_ITS | Encounter Summary ---
Author Organization [facility] Address [address] [place] [address] Care Team Providers Care Ground Mixer Name Role Phone Nhan Gunderson Primary Care Provider Encounter Details Date Type Department Care Team (Latest Contact Info) Description 03/23/2025 Travel Social History Tobacco Use Types Packs/Day Years Used Date Smoking Tobacco: Former Cigarettes 2 2 Passive Smoke Exposure: Past Smokeless Tobacco: Never Comments:quit 5 years ago [...] Description 03/22/2026 3:30 PM EDT Office Visit [facility] [address] [place] [address] Ramin Maxwell MD [address] [place] [address] documented as of this encounter Goals Goal Patient Goal Type Associated Problems Recent Progress Patient-Stated? Author Specialty Pharmacy General Goal General On track( 3:10 PM EDT) No Yuly Muller, PharmD [...] documented as of this encounter Visit Diagnoses Not on filedocumented in this encounter Care Teams Ground Mixer Relationship Specialty Start Date End Date Nhan Gunderson PA [address] [place] [address] PCP - General Physician Import Customer Service Manager 09/23/21 documented as of this encounter
[2025-05-08 21:52] LABS: D-Dimer 0.79 ug/mL (0.0-0.5)
[2025-05-08 22:05] LABS: Free T4 (Free Thyroxine) 1.31 ng/dl (0.78-2.19)
[2025-05-08] MEDS: 0.9 % SODIUM CHLORIDE 1000ML 1,000 ML 999 ML IV (22:05)
[2025-05-08 22:08] LABS: Troponin I < 0.01 ng/ml (0.00-0.034)
[2025-05-08 22:20] LABS: Thyroid Stimulating Hormone 0.08 uIU/mL (0.465-4.68)
[2025-05-08] MEDS: ACETAMINOPHEN 500MG TAB 1000 MG PO (23:55)
[2025-05-08] MEDS: KETOROLAC 30MG/ML VIAL 30 MG IV (23:55)
[2025-05-09 00:01] VITALS: BP 111/56; PULSE 84; RESP 18; O2SAT 97
--- NOTE | 2025-05-09 00:06 | PC.NURSE ---
second trop collected and sent at this time.
[2025-05-09 00:10] LABS: Coronavirus 19, PCR Not Detected (NotDetected); Influenza A, PCR Not Detected (NotDetected); Influenza B, PCR Not Detected (NotDetected)
[2025-05-09 00:31] VITALS: BP 100/55; PULSE 86; RESP 20; O2SAT 98
[2025-05-09 00:53] LABS: Troponin I < 0.01 ng/ml (0.00-0.034)
[2025-05-09 01:00] VITALS: BP 98/55; PULSE 82; RESP 19; TEMP 36.6; O2SAT 97
[2025-05-09 01:12] VITALS: BP 85/55; PULSE 82; RESP 16; TEMP 36.6; O2SAT 98
== END 2025-05-09 01:13 | disposition home or self-care (01) ==
PROVIDERS: Student in an Organized Health Care Education/Training Program; Emergency Provider Emergency Medicine
DX: R07.89 Other chest pain (principal); R06.02 Shortness of breath
CPT/HCPCS: 71046; 80053; 83690; 84439; 84443; 84484; 84703; 85025; 85378; 87636; 93005; 96365; 96375; 99285; J1885; J7030

== ENCOUNTER 2025-08-01 11:41 | Emergency (ER) | payer BC, SELFPAY ==
[2025-08-01] VITALS (8 sets, daily range): BP systolic 118–147; BP diastolic 72–96; PULSE 100–128; RESP 12–22; TEMP 36.8–36.9; O2SAT 98–99; BMI 42.8
--- NOTE | 2025-08-01 11:39 | ECG_ITS ---
APPROVED REPORT Exam: Resting ECG HR:108 bpm ECG Measurements Heart Rate 108 AXES MN 134 P 68 QRSd 80 QRS 38 QT 307 T 18 QTc 370 Conclusion SINUS TACHYCARDIA LOW QRS VOLTAGE IN PRECORDIAL LEADS [QRS DEFLECTION < 1.0 mV IN CHEST LEADS] NONSPECIFIC T-WAVE ABNORMALITY ABNORMAL RHYTHM ECG UNCONFIRMED REPORT Sinus tachycardia. No ST elevation or depression. QTc normal at 370 Electronically signed by : CAMILLE SANCHEZ, 08/02/2025 14:26:52
[2025-08-01 11:56] LABS: Hematocrit 39.6 % (37.0-47.0); Hemoglobin 13.4 g/dL (12.2-16.2); Immature Granulocytes % 0.6 %; Mean Corpuscular HGB Conc 33.8 g/dL (31.8-35.4); Mean Corpuscular Hemoglobin 28.3 pg (27.0-31.2); Mean Corpuscular Volume 83.5 fl (81-99); Nucleated Red Blood Cells % 0 %; Platelet Count 355 K/mm3 (142-424); Red Blood Count 4.74 M/mm3 (4.20-5.40); Red Cell Distribution Width-SD 39.8 fL; White Blood Count 8.2 K/mm3 (4.8-10.8)
--- NOTE | 2025-08-01 11:56 | PC.NURSE ---
Rounded on patient, no needs voiced at this time.
[2025-08-01 12:03] LABS: Alanine Aminotransferase 22 U/L (12-78); Albumin Level 4.8 g/dl (3.5-5.0); Albumin/Globulin Ratio 1.5 (1.1-1.8); Alkaline Phosphatase 116 U/L (38-126); Anion Gap 8.9 mEq/L (5-15); Aspartate Amino Transferase 33 U/L (14-36); Bilirubin,Total 0.5 mg/dl (0.2-1.3); Blood Urea Nitrogen 12 mg/dl (7-17); Calcium 9.1 mg/dl (8.4-10.2); Carbon Dioxide 26 mmol/L (22.0-30.0); Chloride 103 mmol/L (98-107); Creatinine Clearance Estimated 60 mL/min (50-200); Creatinine,Serum 0.90 mg/dl (0.52-1.04); Estimated Glomerular Filt Rate 71 ml/min (>60); GFR (African American) 86 ML/MIN (>60); Globulin 3.2 g/dL (1.3-3.2); Glucose 123 mg/dl (74-100); Potassium 3.9 mmoL/L (3.5-5.1); Sodium 134 mmol/L (136-145); Total Protein,Serum 8.0 g/dl (6.3-8.2)
[2025-08-01] MEDS: 0.9 % SODIUM CHLORIDE 1000ML 1,000 ML 999 ML IV (12:06)
--- NOTE | 2025-08-01 12:06 | ED_ITS ---
<Statement entered by Robin Reeves MD - 08/01/25 20:08> I was consulted by the DORIE, and we discussed the complexity of the problems being addressed. I approve the treatment and management plan for this patient's care in the emergency department, thus performing a substantive portion of the medical decision making. Robin Reeves MD Discharge Plan Disposition Patient Disposition: Home, Self-Care Condition: Good Prescriptions Prescriptions: No Action dextroamphetamine-amphetamine [Adderall] 20 mg tablet 20 mg PO BID Rx Instructions: administer doses at least 4-6 hours apart mupirocin 2 % ointment 1 applic topical TID Qty: 50 0RF amoxicillin 500 mg capsule 500 mg PO BID 7 Days Qty: 14 0RF amitriptyline 25 mg tablet 25 - 50 mg PO HS Patient Comments: TAKE 1 TO 2 TABLETS BY MOUTH EVERY NIGHT Nurtec ODT 75 mg tablet,disintegrating 75 mg PO DAILYP PRN (Reason: Migraine Headache) Ajovy Autoinjector 225 mg/1.5 mL auto-injector 225 mg SQ MONTHLY Referrals Follow up/Referrals: Scooter Eaton MD [Staff Physician, Cardiology] - See instructions Tae Feliciano MD [Primary Care Provider, Medical] - See instructions Activity Restrictions/Add. Instructions Additional Instructions/Restrictions: Please follow-up with your primary care provider and with a lamination operator for further evaluation. Return to the emergency department with any return of chest tightness with high heart rate, shortness of breath, or any other emergent medical complaints or concerns. Clinical Impressions Clinical Impression: Tachycardia Instructions Patient Instructions: Tachycardia, DI for Tachycardia Print Language Print Language: Kiswahili Discharge ED Provider: Robin Reeves General Adult HPI General Chief complaint: Arrhythmia/Palpitations Stated complaint: chest tightness Time Seen by Provider: 08/01/25 11:48 Mode of Arrival: EMS Source of Information: EMS Description of Symptoms (Recalled from ER Triage Doc. by RN): ems states patient was waiting on door dash order when her phone went off stating her heart rate was high 140s, she went to express care and they evaluated her, when ems arrived heart rate was 144, patient does report chest tightness. History of Present Illness HPI narrative: Patient is a 35-year-old female who presents to the emergency department via EMS for fast heart rate. Patient was sitting doing door Dash earlier this morning when her watch alerted her to the fact that her heart was going fast. Patient then went to an urgent care where she was sent told she should be brought to the emergency department, and EMS brought her to [facility] ED. Patient denies any pain, states that she does feel some tightness with these palpitations, states she feels minimal shortness of breath occasionally. Patient denies any history of cardiac troubles. States that she is currently on amoxicillin for vaginitis. Denies any fever or other recent illness and denies any other complaints at this time; denies abdominal pain, nausea, vomiting, diarrhea. Onset (ago): minute(s) Related Data Home Medications ?Medication ?Instructions ?Recorded ?Confirmed dextroamphetamine-amphetamine 20 20 mg PO BID 06/25/23 06/29/25 mg tablet (Adderall) amitriptyline 25 mg tablet 25 - 50 mg PO HS 08/23/24 1 fremanezumab-vfrm 225 mg/1.5 mL 225 mg SQ MONTHLY 08/1306/29/25 subcutaneous auto-injector (Ajovy) rimegepant 75 mg disintegrating 75 mg PO DAILYP PRN Mi graine 08/23/24 06/29/25 tablet (Nurtec ODT) Headache Previous Rx's ?Medication ?Instructions ?Recorded mupirocin 2 % topical ointment 1 applic topical TID #5 0 grams 10/04/24 amoxicillin 500 mg capsule 500 mg PO BID 7 days #14 ca ps 07/16/25 Allergies Allergy/AdvReac Type Severity Reaction Status Date / Time doxycycline Allergy Unknown Verified 06/29/25 14:59 allergy reaction levofloxacin (From Levaquin) Allergy Unknown Verified 06/29/25 14:59 allergy reaction [facility] Disclaimer: The information contained in this section may have been updated after the patient was seen, as this information can be updated by other users. Medical History (Updated 08/01/25 @ 16:20 by TAYLOR Yanez) Vaginal pain Cellulitis of nose Acute carpal tunnel syndrome Adenomatous polyp of cervix Surgical History [place] teeth removed History of removal of cyst H/O tubal ligation History of right knee surgery Family History Other Anemia Asthma Diabetes Heart attack Hyperlipidemia Hypertension Stroke Thyroid disorder Tuberculosis Social History Smoking Status: Current every day smoker tobacco type: cigarettes packs per day: 1 alcohol intake: never substance use type: denies use current occupational status: unemployed Travel in the last 8 weeks?: None household members: spouse housing: house current occupational exposures/hazards: No caffeine: Yes Have you lived/traveled outside US in past 30 days?: No Contact w/someone who lives/traveled outside US past 30 days?: No Exposure to someone with infectious disease in past 14 days?: No Do you have a fever (greater than 100.4 F or 38 C)?: No Have you tested positive for COVID-19?: No Exposed to someone with COVID-19 in past 14 days?: No Do you have a sore throat?: No Do you have a cough?: No Do you have any weakness?: No Do you have any diarrhea?: No Are you experiencing any unusual bleeding?: No Do you have any muscle aches/pain?: No Do you have any abdominal pain?: No Are you experiencing loss of taste or smell?: No Other Medical History Have you received the Flu Vaccine for this season: No Have you received the Pneumonia Vaccine: No ROS Obtained: Yes Systems reviewed as appropriate & no additional complaints except as documented Physical Exam General General appearance: alert and in no apparent distress Head Head exam: atraumatic and normocephalic Eye Eye exam: Present normal appearance and PERRL Neck Neck exam: Present normal inspection and trachea midline Chest Chest inspection: Present normal inspection and symmetric chest wall rise; Absent tenderness Respiratory Respiratory exam: Present normal lung sounds bilaterally; Absent respiratory distress, wheezes or stridor Cardiovascular Cardiovascular exam: Present normal rhythm, tachycardia, +S1 and +S2 Abdominal Exam Abdominal exam: Present soft and normal bowel sounds; Absent distention or tenderness Neurological Exam Neurological exam: Present alert and oriented X3 Psychiatric Psychiatric exam: Present normal affect and normal mood Skin Skin exam: Present warm and dry Medical Decision Making Medical Records Screening: Per USPSTF and CDC recommendations, given the prevalence of disease in our region, it is our hospital?s policy to screen for HIV and viral Hepatitis for all patients aged 18 and over and those with ongoing risk factors. Smooth Inquiry Pt receiving controlled substance: No Vital Signs: 08/01/25 11:42 08/01/25 12:00 08/01/25 12:11 Temperature 98.2 F Temperature Source Oral Pulse Rate 112 H 118 H Pulse Rate [Right Radial] 116 H Respiratory Rate 14 12 14 Blood Pressure 118/72 133/82 Blood Pressure [Right Arm] 147/87 H Blood Pressure Mean [Right Arm] 107 Blood Pressure Source Blood Pressure Source [Right Arm] Automatic Cuff Blood Pressure Position Blood Pressure Position [Right Arm] Supine 02 Sat by Pulse Oximetry 99 99 98 Oxygen Delivery Method Room Air 08/01/25 12:30 08/01/25 13:00 08/01/25 13:30 Temperature Temperature Source Pulse Rate 114 H 107 H 115 H Pulse Rate [Right Radial] Respiratory Rate 18 20 20 Blood Pressure 139/96 H 127/88 133/88 Blood Pressure [Right Arm] Blood Pressure Mean [Right Arm] Blood Pressure Source Blood Pressure Source [Right Arm] Blood Pressure Position Blood Pressure Position [Right Arm] 02 Sat by Pulse Oximetry 98 99 99 Oxygen Delivery Method Room Air Room Air Room Air 08/01/25 14:06 08/01/25 16:41 Temperature 98.4 F Temperature Source Oral Pulse Rate 128 H 100 H Pulse Rate [Right Radial] Respiratory Rate 22 16 Blood Pressure 126/75 125/85 Blood Pressure [Right Arm] Blood Pressure Mean [Right Arm] Blood Pressure Source Automatic Cuff Blood Pressure Source [Right Arm] Blood Pressure Position Supine Blood Pressure Position [Right Arm] 02 Sat by Pulse Oximetry 98 Oxygen Delivery Method Room Air Room Air Lab Data Lab results reviewed: Yes I reviewed the patient's lab results. Lab Results 08/01/25 11:35: D-Dimer 0.81 H, Phosphorus 2.4 L, TSH 0.72 08/01/25 11:38: WBC 8.2, RBC 4.74, Hgb 13.4, Hct 39.6, MCV 83.5, MCH 28.3, MCHC 33.8, RDW 13.1, Plt Count 355, MPV 8.7, Neut % (Auto) 65.3, Lymph % (Auto) 26.9, Arthur % (Auto) 5.0, Eos % (Auto) 1.7, Baso % (Auto) 0.5, Neut # (Auto) 5.4, Lymph # (Auto) 2.2, Arthur # (Auto) 0.4, Eos # (Auto) 0.1, Baso # (Auto) 0.0, Sodium 134 L, Potassium 3.9, Chloride 103, Carbon Dioxide 26, Anion Gap 8.9, BUN 12, Creatinine 0.90, Estimated Creat Clear 60, Estimated GFR 71, Est GFR ( Amer) 86, Glucose 123 H, Calcium 9.1, Total Bilirubin 0.5, AST 33, ALT 22, Alkaline Phosphatase 116, Troponin I < 0.01, Total Protein 8.0, Albumin 4.8, Globulin 3.2, Albumin/Globulin Ratio 1.5 08/01/25 12:05: Urine Color Yellow, Urine Appearance Clear, Urine pH 6.0, Ur Specific [place] 1.025, Urine Protein Negative, Urine Glucose (UA) Negative, Urine Ketones Negative, Urine Blood Negative, Urine Nitrate Negative, Urine Bilirubin Negative, Urine Urobilinogen 0.2, Ur Leukocyte Esterase Negative, Urine RBC None, Urine WBC None, Ur Squamous Epith Cells 5-10, Urine Bacteria Trace 08/01/25 14:57: Troponin I < 0.01 08/01/25 16:08: Chlamy pneumoniae PCR Not detected, Adenovirus (PCR) Not detected, B. pertussis DNA (PCR) Not detected, Coronavirus OC43 (PCR) Not detected, Coronavirus HKU1 (PCR) Not detected, Coronavirus 229E (PCR) Not detected, SARS-CoV-2 (PCR) Not detected, Coronavirus NL63 (PCR) Not detected, Human Metapneumovir PCR Not detected, Influenza A (H1) PCR Not detected, Influ A (H1N1/09) PCR Not detected, Influenza A (H3) PCR Not detected, Influenza Type A (PCR) Not detected, Influenza Type B (PCR) Not detected, M. pneumoniae (PCR) Not detected, Parainfluenza 1 (PCR) Not detected, Parainfluenza 2 (PCR) Not detected, Parainfluenza 3 (PCR) Not detected, Parainfluenza 4 (PCR) Not detected, RSV (PCR) Not detected, Entero/Rhino (PCR) Not detected 08/01/25 11:38 08/01/25 11:38 Orders (Tests/Meds): ED MEDICATIONS Discontinued Medications Generic Name Dose Route Start Last Admin Trade Name Freq PRN Reason Stop Dose Admin Sodium Chloride 1,000 mls @ 999 mls/hr 08/01/25 11:55 08/01/25 13:10 Sod Chlor 0.9% 1000ml Bag IV 08/01/25 12:55 Infused .Q1H1M ONE Infusion Iopamidol 85 ml 08/01/25 13:56 08/01/25 13:57 Iopamidol-370 (76%);100ml Bottle IV 08/01/25 13:57 85 ml ONCE ONE Administration Morphine Sulfate 4 mg 08/01/25 13:38 08/01/25 14:03 Morphine 4mg/Ml Syringe IV 08/01/25 13:39 4 mg ONCE ONE Administration Ondansetron HCl 4 mg 08/01/25 13:38 08/01/25 14:03 Ondansetron 4mg/2ml Vial IV 08/01/25 13:39 4 mg ONCE ONE Administration Sodium Chloride 50 ml 08/01/25 13:56 08/01/25 13:57 0.9 % Sodium Chloride 50 Ml Vial IV 08/01/25 13:57 50 ml ONCE ONE Administration Sodium Chloride 10 ml 08/01/25 13:56 08/01/25 13:57 Sodium Chloride 0.9% 10ml Syr (Rad Only) IV 08/01/25 13:57 10 ml ONCE ONE Administration ORDERS Category Date Time Status CT angio chest PE protocol Stat Cat Scan 08/01/25 13:16 Completed Complete Blood Count Auto Diff Stat Lab 08/01/25 11:38 Completed Comprehensive Metabolic Panel Stat Lab 08/01/25 11:38 Completed D-Dimer Stat Lab 08/01/25 11:35 Completed Full Resp Panel w/COVID ([facility]) Routine Lab 08/01/25 16:08 Completed HIV Combo Stat Lab 08/01/25 11:38 Received Hepatitis C Ab Qual. W/ RFX Stat Lab 08/01/25 11:38 Received PHOS [Phosphorous] Stat Lab 08/01/25 11:35 Completed TSH [Thyroid Stimulating Hormone] Stat Lab 08/01/25 11:35 Completed Trop I [Troponin I] Stat Lab 08/01/25 11:38 Completed Troponin I Q3H Lab 08/01/25 14:57 Completed UA [Urinalysis and Microscopic] Stat Lab 08/01/25 12:05 Completed Medical Decision Narrative: In summary patient is an 35-year-old female who presents to the emergency department for evaluation of tachycardia with palpitations. Patient is hemodynamically stable upon arrival, afebrile. Tachycardic upon exam, otherwise completely unremarkable assessment. Differential diagnosis includes infection, ACS, electrolyte derangement. Initial workup will be conducted with labs, imaging with x-ray and CT. Initial interventions include normal saline bolus with pain management during ED course. Initial workup reviewed by me generally unremarkable labs with no significant electrolyte derangement, kidney injury, or transaminitis on CMP, no leukocytosis or anemia on CBC, elevated D-dimer noted. CT angiogram chest pulmonary embolism protocol obtained; no evidence for PE noted. Upon repeat evaluation patient did have an episode of chest pain for which she was given morphine and Zofran. Given th these results and presentation, the patient is stable and appropriate for discharged home with instructions to follow-up with primary care and cardiology for further assessment and treatment if applicable. Patient verbalized understanding of and is amenable to these plans. Return precautions discussed at bedside and in discharge instructions. I informally interpreted the patient's chest x-ray as unremarkable and saw no concerning findings on chest CT. Patient's tachycardia decreased throughout ED course. Patient was between 100 and 110 for most of her stay and had dropped to 95-105 during discussion about cardiology follow-up and return precautions. Patient has no concerns for any social determinants of health. She is not unhoused and feels safe at home. She also has irregular part-time position to supplement household income. Critical Care Critical Care Time Critical Care Time: No
[2025-08-01 12:15] LABS: Bilirubin,Urine Negative (Negative); Color,Urine YELLOW (Yellow); Glucose,Urine (UA) Negative (Negative); Ketones,Urine Negative (Negative); Leukocyte Esterase,Urine Negative (Negative); Microscopic, Urine URINE MICROSCOPIC (MICROSCOPIC); PH,Urine 6.0 (5.0-8.5); Protein,Urine Negative (Negative); Specific Gravity, Urine 1.025 (1.005-1.030); Urobilinogen,Urine 0.2 EU/dl (0.2)
[2025-08-01 12:16] LABS: Troponin I < 0.01 ng/ml (0.00-0.034)
[2025-08-01 12:23] LABS: Bacteria,Urine Trace /lpf
[2025-08-01 12:31] LABS: D-Dimer 0.81 ug/mL (0.0-0.5)
[2025-08-01 12:55] LABS: Phosphorous 2.4 mg/dl (2.5-4.5)
--- NOTE | 2025-08-01 13:16 | CT_ITS ---
FINAL REPORT TECHNIQUE: Axial imaging of the chest is obtained after the administration of contrast. 3-D MIP reformatted images were also obtained and reviewed per PE protocol. CLINICAL HISTORY: tachycardia, shortness of breath, +dimer COMPARISON: 07/16/2024 FINDINGS: The pulmonary arteries are well filled. There is no evidence of pulmonary embolus. There is no aortic dissection. Heart size is mildly enlarged. There is no mediastinal, hilar, or axillary lymphadenopathy. The lungs are clear. There are no consolidations. There is no pleural or pericardial effusion. Limited evaluation of the upper abdomen is without acute abnormality. No acute osseous abnormality. IMPRESSION: No evidence of pulmonary embolism or aortic dissection. Reviewed, Interpreted and Dictated by Mita Vasquez MD Transcribed by Africa Angulo Authenticated and [facility]
[2025-08-01 13:26] LABS: Thyroid Stimulating Hormone 0.72 uIU/mL (0.465-4.68)
--- NOTE | 2025-08-01 13:41 | ECG_ITS ---
APPROVED REPORT Exam: Resting ECG HR:116 bpm ECG Measurements Heart Rate 116 AXES NJ 116 P 64 QRSd 82 QRS 42 QT 302 T 21 QTc 371 Conclusion SINUS TACHYCARDIA WITH SHORT [place] INTERVAL NONSPECIFIC T-WAVE ABNORMALITY ABNORMAL RHYTHM ECG UNCONFIRMED REPORT Sinus tachycardia. No ST elevation or depression. QTc of 371 Electronically signed by : CAMILLE SANCHEZ, 08/02/2025 14:25:00
[2025-08-01] MEDS: 0.9 % SODIUM CHLORIDE 50 ML VIAL IV (13:57)
[2025-08-01] MEDS: IOPAMIDOL-370 (76%);100ML BOTTLE 85 ML IV (13:57)
[2025-08-01] MEDS: SODIUM CHLORIDE 0.9% 10ML SYR (RAD ONLY) 10 ML IV (13:57)
[2025-08-01] MEDS: MORPHINE 4MG/ML SYRINGE 4 MG IV (14:03)
[2025-08-01] MEDS: ONDANSETRON 4MG/2ML VIAL 4 MG IV (14:03)
[2025-08-01 15:49] LABS: Troponin I < 0.01 ng/ml (0.00-0.034)
[2025-08-01 16:19] LABS: Adenovirus,PCR Not Detected (NotDetected); Chlamydophila Pneumoniae, PCR Not Detected (NotDetected); Coronavirus 19, PCR Not Detected (NotDetected); Coronovirus HKU1,PCR Not Detected (NotDetected); Influenza A, PCR Not Detected (NotDetected); Influenza AH1, 2009 Not Detected (NotDetected); Influenza AH1, PCR Not Detected (NotDetected); Influenza AH3,PCR Not Detected (NotDetected); Influenza B, PCR Not Detected (NotDetected); Mycoplasma Pneumoniae, PCR Not Detected (NotDetected); Parainfluenza 1, PCR Not Detected (NotDetected); Parainfluenza 2, PCR Not Detected (NotDetected); Parainfluenza 3, PCR Not Detected (NotDetected); Parainfluenza 4, PCR Not Detected (NotDetected)
[2025-08-01 18:36] LABS: Hepatitis C Ab Qual. W/ RFX NEGATIVE (Negative)
== END 2025-08-01 16:41 | disposition home or self-care (01) ==
PROVIDERS: Physician Assistant; Emergency Provider Student in an Organized Health Care Education/Training Program; PCP Family Medicine
DX: R07.9 Chest pain, unspecified (principal); R00.0 Tachycardia, unspecified; F17.210 Nicotine dependence, cigarettes, uncomplicated
CPT/HCPCS: 0223U; 71275; 80053; 81001; 84100; 84443; 84484; 85025; 85378; 86803; 87389; 93005; 96361; 96374; 96375; 99285; J2270; J2405; J7030; Q9967

== ENCOUNTER 2025-08-02 09:47 | Outpatient (CLI) | payer BC, SELFPAY | END 2025-08-02 23:59 | disposition home or self-care (01) | LOC: RT 09:48 | PROVIDERS: PCP Family Medicine; Visit Provider Nurse Practitioner Family | DX: I49.1 Atrial premature depolarization (principal); I49.3 Ventricular premature depolarization | CPT/HCPCS: 93270 ==

== ENCOUNTER 2025-08-08 09:14 | Outpatient (CLI) | payer BC, SELFPAY ==
--- OUTSIDE RECORDS SUMMARY | 2025-08-07 12:49 | XMS_ITS | Continuity of Care Document ---
Author Organization [facility] Phone Care Team Providers Care Blindstitch Lapel Padder Name Role Phone JAX TOSCANO Primary Care Unavailable JAX TOSCANO Unavailable Unavailable NANCY PATEL Admitting NANCY PATEL Primary Attending [phone] ALLERGIES AND ADVERSE REACTIONS ALLERGIES AND ADVERSE REACTIONS Code System Allergy Substance Adverse Reaction Date Reaction (Severity) Comment [place] [id number] RXNorm LEVAQUIN Drug-induced nausea and vomiting (Severe) active Patient [id number] on October 11, 2019 8:15:51 PM [place] 3640 RXNorm DOXYCYCLINE Drug-induced nausea and vomiting (Moderate) vomits active [id number] on May 04, 2023 1:25:30 PM [place] FAMILY HISTORY RELATION: Father Status: LIVING SNOMED-CT Diagnosis Age At Onset [id number] Pulmonary emphysema [id number] Chronic obstructive lung disease [id number] Hypertensive disorder [id number] Hypercholesterolemia RELATION: Mother Status: LIVING SNOMED-CT Diagnosis Age At Onset [id number] Hypertensive disorder [id number] Headache [id number] Cerebrovascular accident TREATMENT PLAN DISCHARGE MEDICATIONS Status RXNORM Medication Dose Route Frequency Dates Comments U pdated By Patient discharge medication information is not available. PATIENT OPEN ORDERS Code System Descripti on Frequency Occurrenc es Priority Category Start [place] [address]-6 CANDICE Comprehen sive metabolic 2000 panel - Serum or P ONE TIME 0 Routine August 07, 2025 5:07:00 PM [place] EDYTA CRUZ [id number] on August 07, 2025 5:07:[place] [address]-9 LYNNETTEINC Hemogram and platelets WO different ial panel - ONE TIME 0 Routine August 07, 2025 5:07:00 PM [facility] EDYTA CRUZ [id number] on August 07, 2025 5:07:00 PM [facility] 3016-3 LOINC Thyrotrop in [Units/vo lume] in Serum or Plasma ONE TIME 0 Routine August 07, 2025 5:07:00 PM [facility] EDYTA CRUZ [id number] on August 07, 2025 5:07:00 PM [facility] 3024-7 LOINC Thyroxine (T4) free [Mass/vol ume] in Serum or P ONE TIME 0 Routine August 07, 2025 5:07:00 PM [facility] EDYTA CRUZ [id number] on August 07, 2025 5:07:00 PM [facility] 32293-4 LOINC Lipoprofi le panel - Serum or Plasma ONE TIME 0 Routine August 07, 2025 5:07:00 PM [facility] EDYTA CRUZ [id number] on August 07, 2025 5:07:00 PM [facility] SCHEDULED PROCEDURES Code System Description Status Scheduled Date Upd ated By Patient scheduled procedure information is not available. MEDICATIONS HOME MEDICATIONS Status RXNORM NDC Medication Dose Route Frequency Dates Comments Reported By Updated By Drug Treatment Unknown DISCHARGE MEDICATIONS Status RXNORM NDC Medication Dose Route Frequency Dates Dis pense Data Comments Physician Updated By No Discharge Medication Info rmation Available INPATIENT MEDICATIONS Status RXNORM NDC Medication Dose Route Frequency Rat e Quantity Dates Indication Dispense Data Comments Physician Updated By No Inpatient Medication Info rmation Available SOCIAL HISTORY SOCIAL HISTORY - Smoking Status SNOMED-CT Social History Element Description Effective Dates Offered Cessation Comment Updated By [id number] Historical Tobacco smoking status Former Smoker [id number] on July 04, 2024 3:47:14 PM [facility] [id number] Historical Tobacco smoking status Never Smoked [id number] on July 28, 2021 5:22:21 PM [facility] SOCIAL HISTORY - Gender Sex: Female SOCIAL HISTORY - Status : status i nformation is not available Intention in Next Year: intention information is not available SOCIAL HISTORY - Assessments Code System Description Status Date Value of Assessment Updated By Comment Assessment Information is no t available SOCIAL HISTORY - [place] Affiliation [place] information is not av ailable SOCIAL HISTORY - Legal Sex Legal Sex information is not available SOCIAL HISTORY - Sexual Behavior Sexual Orientation Gender Identity SNOMED-CT Description SNO MED -CT Description Activity Level No of Partners Partner Type UpdatedBy Information is not available SOCIAL HISTORY - Occupation Occupation information is no t available HEALTH CONCERNS Problems Concern Status Health Concern problem infor mation not available. Smoking Status Status Years Used Consumed packs p er day Health Concern smoking histo ry information not available. Family History Concern Status Health Concern family histor y information not available. ENCOUNTERS ENCOUNTER INFORMATION Reason for Visit LABS Admission August 07, 2025 4:49:[address] [address] Discharge August 07, 2025 4:49:00 PM [place] DISCHARGED TO HOME OR SELF CARE ENCOUNTER DIAGNOSES Notes information is not joselyn ilable. Code System Diagnosis Onset Date Diagnosis information is not available. ABSTRACT DIAGNOSES Code System Diagnosis Updated By Abatement Date Abstract Diagnosis informati on is not available. CARE TEAM Care Blindstitch Lapel Padder Role JAX TOSCANO Primary Care JAX TOSCANO Referring MAHMOUD ABUALAYESTER Admitting DARRELLMOUD ABUALAYEM Primary Attending CARE TEAM CARE glass tube bender Role on Team Location Telecom Status Start Date End Fred e Updated By DORCAS CAMARA Referring normal Novemb er 2024 5:00:00 AM [place] August 07, 2025 4:49:00 PM [place] [id number] on August 07, 2025 4:52:33 PM [place] ABUALAYEM DARRELLMOUD PHY Attending normal August 07, 2025 5:00:00 AM [place] August 07, 2025 4:49:00 PM [place] [id number] on August 07, 2025 4:52:33 PM UTC ABUALAYEM MAHMOUD PHY Admitting normal August 07, 2025 5:00:00 AM [place] August 07, 2025 4:49:00 PM [place] [id number] on August 07, 2025 4:52:33 PM [facility] DORCAS CAMARA PCP normal Novemb er 2024 5:00:00 AM [place] August 07, 2025 4:49:00 PM [place] [id number] on August 07, 2025 4:52:33 PM [facility]
--- OUTSIDE RECORDS SUMMARY | 2025-08-08 09:18 | XMS_ITS | Clinical Summary ---
Author Organization [facility] Address [address] [place] [address] Phone Care Team Providers Care Roll Panner Name Role Phone Nonstaff, Referring Primary Care [...] - 19+ 3-dose series) 2009 COVID-19 Vaccine (2024-2 6 season) 2025 Influenza Vaccine (#1) 2025 Meningococcal B Vaccine Aged Out No l onger eligible based on patient's age to complete this topic Pneumococcal Vaccine 0-49 Aged Out No longer eligible based on patient's age to complete this topic Care Teams Roll Panner Relationship Specialty Start Date End Date Nonstaff, Referring PCP - General 02/29/16
--- OUTSIDE RECORDS SUMMARY | 2025-08-08 09:18 | XMS_ITS | Clinical Summary ---
Author Organization [facility] Address [address] 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 Cough, persistent 12/09/2017 Pleuritic chest pain 12/09/2017 Excessive daytime sleepiness 10/22/2017 Vitamin D deficiency disease 10/22/2017 Resolved Problems Problem Noted Date Diagnosed Date Resolved Date Acute pain of right knee 06/21/2018 Snoring 10/22/2017 06/03/2025 Family History Medical History Relation Name Comments [...] 2017 [facility]-Cervical Cancer Screening 2020 [facility]-HPV/Cotest 2020 PCR-INJSB-86 Vaccine (1 - 20 25-26 season) 2025 [facility]-Influenza Vaccine (#1) 2025 [facility]-DTaP,Tdap,and Td Vaccine [...] patient's age to complete this topic Insurance ANTHEM Care Teams Operations Recruiter Relationship Specialty Start Date End Date Per Patient, [place] [address] PCP - General 07/08/21
--- OUTSIDE RECORDS SUMMARY | 2025-08-08 09:19 | XMS_ITS | Encounter Summary ---
Author Organization Healthcare Address [address] [place] [address] Care Team Providers Care Guest Services Manager Name Role Phone Per Patient, None Primary Care Provider Unavaila ble Encounter Details Date Type Department Care Team ([facility] st Contact Info) Description 08/14/2021 Outside Procedure External Location [address] [place] [address] Rafael Singleton MD [address] [place] [address] Social History Tobacco Use Types [...] PM EST Narrative 08/15/2021 11:46 [place] [address] Name: ASHLEY FISCHER Exam Date: 08/14/2021 : 1990 Age 31 Gender: F Physician: RAFAEL SINGLETON Facility: [facility] Facility HSV: Outpatient Exam: CT ABD [...] Thank you for referring ASHLEY FISCHER to [facility]. Legally authenticated by VALENTINO BHANDARI 2021-08-15 11:35:31 Procedure Note Provider, Generic Minter - 08/15/2021 [address] [place] [address] Name: ASHLEY FISCHER Exam Date: 08/14/2021 : 1990 Age 31 Gender: F Physician: RAFAEL SINGLETON Facility: [facility] Facility HSV: Outpatient Exam: CT ABD [...] Thank you for referring ASHLEY FISCHER to [facility]. Legally authenticated by VALENTINO BHANDARI 2021-08-15 11:35:31 Rafael Singleton MD IMG CT PROCEDURES Final Result documented in this encounter Visit Diagnoses Not on filedocumented in this encounter Care Teams Guest Services Manager Relationship Specialty Start Date End Date Per [place], [place] [address] PCP - General 07/08/21 documented as of this encounter
--- OUTSIDE RECORDS SUMMARY | 2025-08-08 09:19 | XMS_ITS | Clinical Summary ---
Author Organization [facility] Address [address] [place] [address] Care Team Providers Care Gas Plant Worker Name Role Phone Nhan Gunderson Primary Care Provider [phone] Allergies Active Allergy Reactions Criticality Noted Date [...] Every 28 (Twenty-Eight) Days. 1.5 mL 11 5 3:29 PM EDT 02/20/20 25 Active rimegepant sulfate ODT (Nurtec) [address] 1 tablet under the tongue Every Other Day. 48 tablet 3 5 11:02 AM EST 02/20/20 25 Active amitriptyline (ELAVIL) 25 MG tabletIndications: Insomnia, unspecified type Take 1-2 tablets by mouth Every Night. 120 tablet 2 03/22/20 25 Active amphetamine-dextro amphetamine (ADDERALL) 20 MG tabletIndications: Attention deficit hyperactivity disorder, combined type Take 1 tablet by mouth 2 (Two) Times a Day. 60 tablet 07/11/20 25 Active amphetamine-dextro amphetamine (ADDERALL) 20 MG tabletIndications: Attention deficit hyperactivity disorder, combined type Take 1 tablet by mouth 2 (Two) Times a Day. 60 tablet 05/15/20 25 025 Discontin ued(Reord er) Active Problems Problem Noted Date Diagnosed Date [...] 24 hours Will obtain MRI records from [facility] F/U in 8 weeks or sooner [...] organization. 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 Procedures Procedure Name Priority Date/Time Associated Diagnosis Comments SCANNED EKG 08/01/2025 SCANNED - LABS 08/01/2025 SCANNED - LABS 08/01/2025 SCANNED - LABS 08/01/2025 SCANNED - LABS 08/01/2025 SCANNED - LABS 08/01/2025 SCANNED - LABS 08/01/2025 SCANNED - LABS 08/01/2025 from Last 3 Months Results * ECG Scan (08/01/2025) Tae Feliciano MD ECG ORDERABLES Final Re sult * LABS SCANNED (08/01/2025) Only the most recent of7 resultswithin the time period is included. Tae Feliciano MD LAB BLOOD ORDERABLES Fin al Result from Last 3 Months Insurance [facility] [place] [id number] [facility] PPO Care Teams Gas Plant Worker Relationship Specialty Start Date End Date Nhan [place] [address] PCP - General Physician Honing Job Setter 09/23/21
--- OUTSIDE RECORDS SUMMARY | 2025-08-08 09:19 | XMS_ITS | Encounter Summary ---
[facility] Address [address] [place] [id number] Care Team Providers Care Body And Frame Technician Name Role Phone Nhan Gunderson Primary Care Provider [phone] Reason for Visit * Reason Comments Med Refill Encounter Details Date Type Department Care Team (Late Contact Info) Description 08/12/2021 Refill [facility] [address] [place] [address] Africa Gill, CERTIFIED PROFESSIONAL MIDWIFE [address] [place] [address] Obesity (BMI 35.0-39.9 without comorbidity) [...] Description 03/22/2026 3:30 PM EDT Office Visit [facility] [address] [facility] [address] [place] [address] Ramin Maxwell MD [address] [facility] [address] [place] [address] documented as of this encounter Visit Diagnoses Diagnosis Obesity (BMI 35.0-39.9 without comorbidity) documented in this encounter Care Teams Body And Frame Technician Relationship Specialty Start Date End Date Nhan Gunderson PA [address] [place] [address] PCP - General Physician Process Checker 09/23/21 documented as of this encounter
--- OUTSIDE RECORDS SUMMARY | 2025-08-08 09:19 | XMS_ITS ---
Author Organization [facility] Address [address] [place] [address] Care Team Providers Care Comptroller Name Role Phone Nhan Gunderson Primary Care Provider [phone] Chronic Migraine Status:Enrolled (Active) Start date:12/10/2021 Enrollment date:12/10/2021 Enrollment reason:Referred by provider Current support & services provided:Clinical Assessment, Refill Coordination , Benefits Investigation, Prior Authorization, Copay Assistance, [facility] Dispensing Linked medications:Fremanezumab-vfrm (Active), Rimegepant Sulfate (Active) Linked problems:Migraine without aura and without status migrainosus, not intractable (Active) Case Team Name Relationship Phone Ramin Maxwell MD Consulting Physician Continued Care and Services Coordination
--- OUTSIDE RECORDS SUMMARY | 2025-08-08 09:19 | XMS_ITS | Encounter Summary ---
Author Organization Healthcare Address [address] [place] [address] Care Team Providers Care Quality Control Technician Name Role Phone Per Patient, None Primary Care Provider Unavaila ble Encounter Details Date Type Department Care Team ([facility] st Contact Info) Description 07/11/2021 Outside Procedure External Location [address] [place] [address] Rafael Singleton MD [address] [place] [address] Social History Tobacco Use Types [...] AM EDT Narrative 07/11/2021 12:12 [place] [address] Name: ASHLEY FISCHER Exam Date: 07/11/2021 : 1990 Age 30 Gender: F Physician: RAFAEL SINGLETON Facility: [facility] Facility HSV: Outpatient Exam: HYSTEROSALPINGOGRAM HYSTEROSALPINGOGRAM. [...] to [facility]. Legally authenticated by EVELYNE CONKLIN 2021-07-11 12:02:11 Procedure Note Provider, Generic [place] - 07/11/2021 [place] [address] Name: ASHLEY FISCHER Exam Date: 07/11/2021 : 1990 Age 30 Gender: F Physician: RAFAEL SINGLETON Facility: [facility] Facility HSV: Outpatient Exam: HYSTEROSALPINGOGRAM HYSTEROSALPINGOGRAM. [...] Thank you for referring ASHLEY FISCHER to [facility]. Legally authenticated by EVELYNE CONKLIN 2021-07-11 12:02:11 us Rafael Singleton MD IMG FLUOROSCOPY PROCEDURES Cony l Result documented in this encounter Visit Diagnoses Not on filedocumented in this encounter Care Teams Quality Control Technician Relationship Specialty Start Date End Date Per Patient, [place] [address] PCP - General 07/08/21 documented as of this encounter
--- NOTE | 2025-08-08 09:30 | CA_ITS ---
APPROVED REPORT EXAM: Comprehensive 2D, Doppler, and color-flow Echocardiogram Operator Command Support Systems: Evelyne Martinez RVT Ht: 4 ft 11 in Wt: 209lbs BSA: 1.88 BP: 120/76 mmHg Indications: PALPITATIONS 2D Dimensions LA Volume 23.90 mL LA Volume Index 12.71 mL/m2 (M/F) 16-34 M-Mode Dimensions RVDd 2.72 cm (0.9-2.6) LA Diam 2.83 cm (1.9-4.0) LVDd 4.59 cm (3.5-5.7) LVDs 3.12 cm (3.5-5.7) IVSd 0.80 cm (0.6-1.1) PWd 0.40 cm (0.6-1.1) EF (Teich) 60.20% FS 32.00% EDV (Teich) 96.80 mL TAPSE 2.25 (<1.7) ESV (Teich) 38.50 mL LV Diastology E Decel Time 237 (160-240 msec) E/A Ratio 1.2 Aortic Valve MILTON Index 1.11 cm2/m2 AoV Peak Isaiah. 120.0 (50-130 cm/s) AO Peak GR. 5.70 mmHg AO Mean GR. 3.00 (<5 mmHg) AO VTI 21.3 (18-25 cm) MILTON (VTI) 2.14 (2.5-4.5 cm2) Mitral Valve MV E Max Isaiah. 75.0 (40-130 cm/s) MV A Velocity 62.0 (40-130 cm/s) E/A Ratio 1.21 MV PHT 69.0 ms Pulmonary Valve PV Peak Velocity 64.0 (50-150 cm/s) Left Ventricle The left ventricle is normal size. Left ventricular systolic function is normal. The left ventricular ejection fraction is within the normal range. There is normal left ventricular wall thickness. There is normal LV segmental wall motion. The left ventricular diastolic function is normal. LVEF is 55% Right Ventricle The right ventricle is normal size. The right ventricular systolic function is normal. Atria The left atrium size is normal. The right atrium size is normal. There is no color Doppler evidence of interatrial shunt. Aortic Valve The aortic valve opens well. There is no hemodynamically significant aortic valvular stenosis. No aortic regurgitation is present. Mitral Valve The mitral valve is normal in structure. No evidence of mitral valve stenosis. Trace mitral regurgitation is present. Tricuspid Valve The tricuspid valve leaflets are thin and pliable. Trace tricuspid regurgitation. There is insufficient TR jet to estimate RVSP. Pulmonic Valve The pulmonary valve is grossly normal in structure. Trace pulmonic valve regurgitation is present. Great Vessels The aortic root is normal in size. IVC is normal in size and collapses >50% with inspiration. Pericardium There is no pericardial effusion. Other Information Study Quality: Adequate Conclusion Normal biventricular systolic function. No significant valvular stenosis or regurgitation. Electronically signed by : Sharyn Montilla MD 08/20/2025 12:52:10
[2025-08-08 10:00] VITALS: BP 125/80; BP 157/80; PULSE 91; RESP 16
--- NOTE | 2025-08-08 10:30 | CA_ITS ---
APPROVED REPORT Exam: Exercise Treadmill Technologist: Carol Leiva Stress Nurse: Anneliese NOLEN, RN Ht: 4 ft 11 in Wt: 209 lbs BSA: 1.88 m2 HR: 91 bpm BP: 125/90 mmHg Indications: Rule out ischemia due to chest pain. Stress Test Details Test: Exercise stress testing was performed using a Trevor protocol. HR Resting HR: 91 bpm Max Heart Rate (APMHR): 185.232133 bpm Max HR Achieved: 170 bpm Target HR (85% APMHR): 157.812295 bpm % of APMHR: 91.89 Recovery HR: 103 bpm BP Resting BP: 125.0/80.0 mmHg Max BP: 157.0/80.0 mmHg Recovery BP: 136.0/79.0 mmHg ECG Stress ECG Conclusion Requested test to stop at 6:03 minutes due to dyspnea. Symptoms: Dyspnea, chest tightness Arrhythmias/Ectopy: PAC ST-T Changes: Less than 0.[address] segment changes. Electronically signed by : Sharyn Montilla MD 08/12/2025 22:26:39
== END 2025-08-08 23:59 | disposition home or self-care (01) ==
LOC: RT 09:15
PROVIDERS: PCP Family Medicine; Visit Provider Nurse Practitioner Family
DX: I49.1 Atrial premature depolarization (principal); R00.0 Tachycardia, unspecified; R94.31 Abnormal electrocardiogram [ECG] [EKG]
CPT/HCPCS: 93017; 93018; 93306